=== PATIENT | male | born 1965 | race Caucasian/White ===

== ENCOUNTER 2016-06-13 00:16 | Emergency (ER) | payer MEDICARE, OTHER ==
[2016-06-13 00:24] VITALS: BP 183/88
[2016-06-13] MEDS ORDERED: HYDROcodone/APAP 5-325MG 1 EACH TAB PO STA (00:42)
[2016-06-13] MEDS ORDERED: CLINDAMYCIN 150 MG CAP PO STA (00:42)
--- NOTE | 2016-06-13 00:45 | ED ---
General Adult HPI - General Chief complaint: Skin/Abscess/Foreign Body Stated complaint: Facial Swelling Time Seen by Provider: 06/13/16 00:33 Source: patient, family, RN notes reviewed Mode of arrival: ambulatory Limitations: no limitations - History of Present Illness Initial comments: Patient 50-year-old male who presents emergency room today with son. 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 Patient admits to swelling to the right side of the face. Patient admits to local pain and tenderness. Denies any drainage or discharge. Denies any specific dental pain. Denies any other complaints at this time. Patient denies any recent fever, chills, shortness of breath, chest pain, back pain, abdominal pain, nausea or vomiting, numbness or tingling, dysuria or hematuria, constipation or diarrhea, headaches or visual changes, or any other complaints. - Related Data Previous Rx's Medication Instructions Recorded Methocarbamol [Robaxin] 1,000 mg PO TID PRN #15 tab 01/19/16 Naproxen [Naprosyn] 500 mg PO Q12HR #30 tab 01/19/16 Clindamycin HCl [Cleocin] 300 mg PO QID 10 Days 06/13/16 Hydrocodone/Acetaminophen [Cunningham 1 each PO Q6HR PRN #10 tab 06/13/16 5-325] Allergies Allergy/AdvReac Type Severity Reaction Status Date / Time Penicillins Allergy Unknown Unknown Verified 06/13/16 00:24 Sulfa (Sulfonamide Allergy Unknown Unknown Verified 06/13/16 00:24 Antibiotics) peas Allergy Unknown Verified 06/13/16 00:24 Review of Systems ROS Statement: Those systems with pertinent positive or pertinent negative responses have been documented in the HPI. ROS Other: All systems not noted in ROS Statement are negative. Past Medical History Past Medical History: Asthma, CVA/TIA History of Any Multi-Drug Resistant Organisms: None Reported Additional Past Surgical History / Comment(s): Abd Past Psychological History: No Psychological Hx Reported Smoking Status: Current every day smoker Past Alcohol Use History: Occasional Past Drug Use History: None Reported General Exam - General Exam Comments Initial Comments: General: The patient is awake and alert, in no distress, and does not appear acutely ill. Eye: Pupils are equal, round and reactive to light, extra-ocular movements are intact. No nystagmus. There is normal conjunctiva bilaterally. No signs of icterus. Ears, nose, mouth and throat: There are moist mucous membranes and no oral lesions. Poor dental hygiene. Tender gum line over tooth #8 Neck: The neck is supple, there is no tenderness or JVD. Cardiovascular: There is a regular rate and rhythm. No murmur, rub or gallop is appreciated. Musculoskeletal: Normal ROM, no tenderness. Strength 5/5. Sensation intact. Pulses equal bilaterally 2+. Neurological: A&O x 3. CN II-XII intact, There are no obvious motor or sensory deficits. Coordination appears grossly intact. Speech is normal. Skin: On or swelling to the right cheek area. Mild tenderness and warmth. Psychiatric: Cooperative, appropriate mood & affect, normal judgment. Limitations: no limitations Course Vital Signs 06/13/16 00:18 Temperature 98 F Pulse Rate 88 Respiratory 20 Rate Blood Pressure 183/88 O2 Sat by Pulse 98 Oximetry Medical Decision Making - Medical Decision Making Patient does have penicillin and sulfa ALLERGIES will be started on clindamycin cover for infection control prescription of pain medication advised follow-up dentist over the next 2 days. Advised return here to emergency room if any symptoms increase worsen or for any other concerns. Disposition Clinical Impression: Dental abscess Disposition: HOME SELF-CARE Condition: Good Instructions: Abscess (ED) Additional Instructions: Please use medication as discussed. Please follow-up with family doctor / dentist over the next 2 days. Please return to emergency room if the symptoms increase or worsen or for any other concerns. Prescriptions: Clindamycin HCl [Cleocin] 300 mg PO QID 10 Days Hydrocodone/Acetaminophen [Cunningham 5-325] 1 each PO Q6HR PRN #10 tab PRN Reason: Pain Referrals: None,Stated [Primary Care Provider] - 1-2 days Shola Wilcox MD [STAFF PHYSICIAN] - 1-2 days Time of Disposition: 00:44
[2016-06-13 00:53] VITALS: PULSE 90; RESP 18; TEMP 98.5
== END 2016-06-13 00:54 | disposition home or self-care (01) ==
LOC: EC 00:16
DX: K04.7 Periapical abscess without sinus (principal); F17.200 Nicotine dependence, unspecified, uncomplicated; Z88.0 Allergy status to penicillin; Z88.2 Allergy status to sulfonamides; Z91.018 Allergy to other foods
CPT/HCPCS: 99283

== ENCOUNTER 2017-03-03 22:44 | Emergency (ER) | payer MEDICARE, OTHER ==
[2017-03-03 22:52] VITALS: RESP 20
[2017-03-04] MEDS ORDERED: ONDANSETRON 4 MG/2 ML VIAL IVP STA (00:08)
[2017-03-04] MEDS ORDERED: SODIUM CHLORIDE 0.9% 1,000 ML IV STA (00:08)
--- NOTE | 2017-03-04 00:45 | XR ---
EXAMINATION TYPE: XR KUB DATE OF EXAM: 03/04/2017 COMPARISON: NONE HISTORY: Abdominal pain TECHNIQUE: 2 views FINDINGS: There is no sign of intestinal obstruction or pneumoperitoneum. Fecal pattern is normal. Th ere are no pathologic calcifications over the kidneys. Lung bases are clear. IMPRESSION: Nonacute abdomen.
[2017-03-04 00:51] LABS: Basophils # (A) 0.1 k/uL (0-0.2); Basophils % (A) 1 %; Eosinophils # (A) 0.3 k/uL (0-0.7); Eosinophils % (A) 3 %; HCT 43.8 % (39.0-53.0); HGB 14.5 gm/dL (13.0-17.5); Lymphocytes # (A) 2.6 k/uL (1.0-4.8); Lymphocytes % (A) 33 %; MCH 32.6 pg (25.0-35.0); MCV 98.8 fL (80.0-100.0); Mean Platelet Volume 7.6; Monocytes # (A) 0.5 k/uL (0-1.0); Monocytes % (A) 6 %; Neutrophils # (A) 4.4 k/uL (1.3-7.7); Neutrophils % (A) 55 %; Platelet Count 247 k/uL (150-450); RBC 4.43 m/uL (4.30-5.90); RDW 13.6 % (11.5-15.5)
[2017-03-04 01:02] LABS: Partial Thromboplastin Time 24.7 sec (22.0-30.0); Prothrombin Time 9.6 sec (9.0-12.0)
[2017-03-04 01:11] LABS: ALT 40 U/L (21-72); AST 32 U/L (17-59); Albumin 3.9 g/dL (3.5-5.0); Alcohol 26 mg/dL; Alkaline Phosphatase 95 U/L (38-126); Amylase 74 U/L (30-110); Anion Gap 9 mmol/L; Blood Urea Nitrogen 6 mg/dL (9-20); Calcium 8.7 mg/dL (8.4-10.2); Carbon Dioxide 22 mmol/L (22-30); Chloride 113 mmol/L (98-107); Glucose 84 mg/dL (74-99); Lipase 91 U/L (23-300); Potassium 4.2 mmol/L (3.5-5.1); Sodium 144 mmol/L (137-145); Total Bilirubin 0.3 mg/dL (0.2-1.3); Total Protein 6.8 g/dL (6.3-8.2)
[2017-03-04 01:20] LABS: Appearance,Urine Clear (Clear); Bilirubin,Urine Negative (Negative); Blood,Urine Negative (Negative); Color,Urine Yellow; Glucose,Urine (UA) Negative (Negative); Ketones,Urine Negative (Negative); Leukocyte Esterase,Urine Trace (Negative); Mucus,Urine Moderate /hpf; Nitrite,Urine Negative (Negative); PH, Urine 5.5 (5.0-8.0); Protein,Urine Trace (Negative); RBC,Urine 2 /hpf (0-5); Specific Gravity,Urine 1.032 (1.001-1.035); WBC,Urine 2 /hpf (0-5)
[2017-03-04] MEDS ORDERED: PANTOPRAZOLE 40 MG/10 ML VIAL IVP STA (01:44)
[2017-03-04] MEDS ORDERED: PSEUDOEPHEDRINE 30 MG TAB PO STA (01:44)
[2017-03-04] MEDS ORDERED: ONDANSETRON 4 MG ODT STARTER PACK 2 TAB BTL PO STA (01:48)
--- NOTE | 2017-03-04 01:48 | ED ---
Abdominal Pain HPI - General Chief Complaint: Abdominal Pain Stated Complaint: vomiting Time Seen by Provider: 03/03/17 23:53 Source: patient, mooner Mode of arrival: ambulatory Limitations: language barrier - History of Present Illness Initial Comments: 51-year-old male patient presents to the emergency department today for complaints of vomiting, generalized abdominal pain, body aches, nasal congestion. Patient states that symptoms of a present for the last couple of days. He denies any constipation or diarrhea. He reports that he did have some light pink streaking in his vomit that he believed to be blood. He does have a history of chronic alcohol abuse, hearing impairment, and gastric ulcer. States he is not currently doing any treatment for the ulcer. He denies any hematochezia or melena. Denies any known fever or chills. Denies any recent cough. Patient denies any recent rash, shortness breath, chest pain, back pain, numbness, tingling, dizziness, weakness, hematuria, dysuria, urinary urgency, urinary frequency, headache, visual changes, or any other complaints. - Related Data Previous Rx's Medication Instructions Recorded Omeprazole [PriLOSEC] 20 mg PO AC-BRKFST #30 cap 03/04/17 Allergies Allergy/AdvReac Type Severity Reaction Status Date / Time Penicillins Allergy Unknown Unknown Verified 03/03/17 22:52 Sulfa (Sulfonamide Allergy Unknown Unknown Verified 03/03/17 22:52 Antibiotics) peas Allergy Unknown Verified 03/03/17 22:52 Review of Systems ROS Statement: Those systems with pertinent positive or pertinent negative responses have been documented in the HPI. ROS Other: All systems not noted in ROS Statement are negative. Past Medical History Past Medical History: Asthma, CVA/TIA History of Any Multi-Drug Resistant Organisms: None Reported Past Surgical History: Appendectomy Additional Past Surgical History / Comment(s): Abd Past Psychological History: No Psychological Hx Reported Smoking Status: Current every day smoker Past Alcohol Use History: Occasional Past Drug Use History: None Reported General Exam Limitations: language barrier (Hearing impairment) General appearance: alert, in no apparent distress, other (This is a well- developed, well-nourished adult male patient in no acute distress. Vital signs upon presentation are temperature 99.0F, pulse 95, respirations 20, blood pressure 149/85, pulse ox 96% on room air.) Eye exam: Present: normal appearance, PERRL, EOMI. Absent: scleral icterus, conjunctival injection, periorbital swelling ENT exam: Present: normal exam, normal oropharynx, mucous membranes moist, TM's normal bilaterally Neck exam: Present: normal inspection. Absent: tenderness, meningismus, lymphadenopathy Respiratory exam: Present: normal lung sounds bilaterally. Absent: respiratory distress, wheezes, rales, rhonchi, stridor Cardiovascular Exam: Present: regular rate, normal rhythm, normal heart sounds. Absent: systolic murmur, diastolic murmur, rubs, gallop, clicks GI/Abdominal exam: Present: soft, normal bowel sounds. Absent: distended, tenderness, guarding, rebound, rigid Neurological exam: Present: alert, oriented X3, CN II-XII intact Psychiatric exam: Present: normal affect, normal mood Skin exam: Present: warm, dry, intact, normal color. Absent: rash Course Vital Signs 03/03/17 03/04/17 22:49 02:19 Temperature 99 F 97.8 F Pulse Rate 95 77 Respiratory 20 20 Rate Blood Pressure 149/85 138/94 O2 Sat by Pulse 96 97 Oximetry Medical Decision Making - Medical Decision Making 51-year-old male patient presented to the emergency department today for evaluation of generalized abdominal pain, vomiting, and body aches. Physical examination is relatively unremarkable. Abdomen was soft and not particularly tender. Labs reviewed and were unremarkable. Patient does have history of gastric ulcer however he is not being treated for this at this time. He does admit to chronic alcohol abuse. We will give him Prilosec to take at home. He' ll be given a starter pack for Zofran. He is instructed to follow-up with his primary care physician or GI specialist for further evaluation and possible scope. He is instructed to return here immediately for any new, worsening, or concerning symptoms. He verbalizes understanding and agrees with this plan. - Lab Data Result diagrams: 03/04/17 00:25 03/04/17 00:25 Lab Results 03/04/17 03/04/17 03/04/17 Range/Units 00:25 00:25 00:25 WBC 8.0 (3.8-10.6) k/uL RBC 4.43 (4.30-5.90) m/uL Hgb 14.5 (13.0-17.5) gm/dL Hct 43.8 (39.0-53.0) % MCV 98.8 (80.0-100.0) fL MCH 32.6 (25.0-35.0) pg MCHC 33.0 (31.0-37.0) g/dL RDW 13.6 (11.5-15.5) % Plt Count 247 (150-450) k/uL Neutrophils % 55 % Lymphocytes % 33 % Monocytes % 6 % Eosinophils % 3 % Basophils % 1 % Neutrophils # 4.4 (1.3-7.7) k/uL Lymphocytes # 2.6 (1.0-4.8) k/uL Monocytes # 0.5 (0-1.0) k/uL Eosinophils # 0.3 (0-0.7) k/uL Basophils # 0.1 (0-0.2) k/uL PT 9.6 (9.0-12.0) sec INR 1.0 (<1.2) APTT 24.7 (22.0-30.0) sec Sodium 144 (137-145) mmol/L Potassium 4.2 (3.5-5.1) mmol/L Chloride 113 H (98-107) mmol/L Carbon Dioxide 22 (22-30) mmol/L Anion Gap 9 mmol/L BUN 6 L (9-20) mg/dL Creatinine 1.00 (0.66-1.25) mg/dL Est GFR (MDRD) Af Amer >60 (>60 ml/min/1.73 sqM) Est GFR (MDRD) Non-Af >60 (>60 ml/min/1.73 sqM) Glucose 84 (74-99) mg/dL Calcium 8.7 (8.4-10.2) mg/dL Total Bilirubin 0.3 (0.2-1.3) mg/dL AST 32 (17-59) U/L ALT 40 (21-72) U/L Alkaline Phosphatase 95 (38-126) U/L Total Protein 6.8 (6.3-8.2) g/dL Albumin 3.9 (3.5-5.0) g/dL Amylase 74 (30-110) U/L Lipase 91 (23-300) U/L Urine Color Urine Appearance (Clear) Urine pH (5.0-8.0) Ur Specific [place] (1.001-1.035) Urine Protein (Negative) Urine Glucose (UA) (Negative) Urine Ketones (Negative) Urine Blood (Negative) Urine Nitrite (Negative) Urine Bilirubin (Negative) Urine Urobilinogen (<2.0) mg/dL Ur Leukocyte Esterase (Negative) Urine RBC (0-5) /hpf Urine WBC (0-5) /hpf Urine Mucus (None) /hpf Serum Alcohol 26 mg/dL Influenza Type A RNA (Not Detectd) Influenza Type B (PCR) (Not Detectd) 03/04/17 03/04/17 Range/Units 00:25 01:05 WBC (3.8-10.6) k/uL RBC (4.30-5.90) m/uL Hgb (13.0-17.5) gm/dL Hct (39.0-53.0) % MCV (80.0-100.0) fL MCH (25.0-35.0) pg MCHC (31.0-37.0) g/dL RDW (11.5-15.5) % Plt Count (150-450) k/uL Neutrophils % % Lymphocytes % % Monocytes % % Eosinophils % % Basophils % % Neutrophils # (1.3-7.7) k/uL Lymphocytes # (1.0-4.8) k/uL Monocytes # (0-1.0) k/uL Eosinophils # (0-0.7) k/uL Basophils # (0-0.2) k/uL PT (9.0-12.0) sec INR (<1.2) APTT (22.0-30.0) sec Sodium (137-145) mmol/L Potassium (3.5-5.1) mmol/L Chloride (98-107) mmol/L Carbon Dioxide (22-30) mmol/L Anion Gap mmol/L BUN (9-20) mg/dL Creatinine (0.66-1.25) mg/dL Est GFR (MDRD) Af Amer (>60 ml/min/1.73 sqM) Est GFR (MDRD) Non-Af (>60 ml/min/1.73 sqM) Glucose (74-99) mg/dL Calcium (8.4-10.2) mg/dL Total Bilirubin (0.2-1.3) mg/dL AST (17-59) U/L ALT (21-72) U/L Alkaline Phosphatase (38-126) U/L Total Protein (6.3-8.2) g/dL Albumin (3.5-5.0) g/dL Amylase (30-110) U/L Lipase (23-300) U/L Urine Color Yellow Urine Appearance Clear (Clear) Urine pH 5.5 (5.0-8.0) Ur Specific [place] 1.032 (1.001-1.035) Urine Protein Trace H (Negative) Urine Glucose (UA) Negative (Negative) Urine Ketones Negative (Negative) Urine Blood Negative (Negative) Urine Nitrite Negative (Negative) Urine Bilirubin Negative (Negative) Urine Urobilinogen 2.0 (<2.0) mg/dL Ur Leukocyte Esterase Trace H (Negative) Urine RBC 2 (0-5) /hpf Urine WBC 2 (0-5) /hpf Urine Mucus Moderate H (None) /hpf Serum Alcohol mg/dL Influenza Type A RNA Not Detected (Not Detectd) Influenza Type B (PCR) Not Detected (Not Detectd) - Radiology Data Radiology results: report reviewed, image reviewed 2 views of the abdomen are obtained and showed no sign of intestinal obstruction or pneumoperitoneum. Fecal pattern is normal. There are no pathologic calcifications over the kidneys. Lung bases are clear. Impression by Dr. Simms shows nonacute abdomen. Disposition Clinical Impression: Abdominal pain, Vomiting, Upper respiratory infection Disposition: HOME SELF-CARE Condition: Good Instructions: Upper Respiratory Infection (ED), Abdominal Pain (ED) Additional Instructions: Follow-up with GI specialist for possible scope to reevaluate your ulcer. Take omeprazole daily. Take Zofran/Ondansetron as needed for vomiting. Follow-up with her primary care physician tomorrow. Return here immediately for any new, worsening, or concerning symptoms. Prescriptions: Omeprazole [PriLOSEC] 20 mg PO -KT #30 cap Referrals: None,Stated [Primary Care Provider] - 1-2 days Time of Disposition: 01:47
[2017-03-04 02:21] VITALS: BP 138/94; PULSE 77; TEMP 97.8
== END 2017-03-04 02:35 | disposition home or self-care (01) ==
LOC: EC 22:44
DX: R10.84 Generalized abdominal pain (principal); R11.10 Vomiting, unspecified; J06.9 Acute upper respiratory infection, unspecified; F10.10 Alcohol abuse, uncomplicated; H91.90 Unspecified hearing loss, unspecified ear; F17.200 Nicotine dependence, unspecified, uncomplicated; Z88.0 Allergy status to penicillin; Z88.2 Allergy status to sulfonamides; Z91.018 Allergy to other foods; Z90.49 Acquired absence of other specified parts of digestive tract
CPT/HCPCS: 99284; 96374; 96375; 96361; 36415; 93005; 80053; 82150; 83690; 85025; 85610; 85730; 81001; 80320; 87502; 74018; J2405; S0119; C9113

== ENCOUNTER 2018-08-22 18:56 | Emergency (ER) | payer MEDICARE ==
[2018-08-22 19:09] VITALS: TEMP 97.6
[2018-08-22] MEDS ORDERED: SODIUM CHLORIDE 0.9% 1,000 ML IV STA (19:17)
[2018-08-22] MEDS ORDERED: ALBUTEROL NEBULIZED 2.5 MG/3 ML INHALATION STA (19:18)
--- NOTE | 2018-08-22 19:20 | ED ---
General Adult HPI - General Chief complaint: Shortness of Breath Stated complaint: Allergic Reaction Time Seen by Provider: 08/22/18 18:59 Source: patient, family, EMS, RN notes reviewed, old records reviewed Mode of arrival: EMS Limitations: language barrier - History of Present Illness Initial comments: Patient is a 53-year-old male who presents emergency department today with a known ALLERGY to bees. Patient reports that he was started in the left forearm by a bee while he was at his daughter's home. He was outside, and had immediate reaction complaint of throat closing tongue swelling. Patient was found on the ground by family members and out of consciousness. They report that he was breathing the entire time but was waxing and waning with conscious level. Patient states that he does not carry an EpiPen with him. No ventral. Upon EMS arrival they administered epi, Benadryl and Solu-Medrol gave the Patient albuterol treatment. He reports he is feeling somewhat better at this time. He still complains of some feeling of throat swelling. Patient states that he has no other significant pains assigns the swelling in his arm. He denies any chest pain. - Related Data Previous Rx's Medication Instructions Recorded Omeprazole [PriLOSEC] 20 mg PO AC-BRKFST #30 cap 03/04/17 EPINEPHrine (Auto Inject) [Epipen] 0.3 mg IM ONCE PRN #1 pen 08/22/18 diphenhydrAMINE HCL [Benadryl] 25 mg PO HS #20 tab 08/22/18 predniSONE 10 mg PO DAILY #15 tab 08/22/18 Allergies Allergy/AdvReac Type Severity Reaction Status Date / Time Penicillins Allergy Unknown Unknown Verified 03/03/17 22:52 Sulfa (Sulfonamide Allergy Unknown Unknown Verified 03/03/17 22:52 Antibiotics) venom-honey bee Allergy Anaphylaxis Verified 08/22/18 19:02 Review of Systems ROS Statement: Those systems with pertinent positive or pertinent negative responses have been documented in the HPI. ROS Other: All systems not noted in ROS Statement are negative. Past Medical History Past Medical History: Asthma, CVA/TIA History of Any Multi-Drug Resistant Organisms: None Reported Past Surgical History: Appendectomy Additional Past Surgical History / Comment(s): Abd Past Psychological History: No Psychological Hx Reported Smoking Status: Current every day smoker Past Alcohol Use History: Occasional Past Drug Use History: None Reported General Exam - General Exam Comments Initial Comments: 53-year-old male. Alert and oriented. No significant distress. Limitations: language barrier General appearance: alert, in no apparent distress Head exam: Present: atraumatic, normocephalic, normal inspection Eye exam: Present: normal appearance, PERRL, EOMI. Absent: scleral icterus, conjunctival injection, periorbital swelling ENT exam: Present: normal exam, mucous membranes moist Neck exam: Present: normal inspection. Absent: tenderness, meningismus, lymphadenopathy Respiratory exam: Present: wheezes. Absent: normal lung sounds bilaterally, r espiratory distress, rales, rhonchi, stridor Cardiovascular Exam: Present: regular rate, normal rhythm, normal heart sounds. Absent: systolic murmur, diastolic murmur, rubs, gallop, clicks GI/Abdominal exam: Present: soft, normal bowel sounds. Absent: distended, tenderness, guarding, rebound, rigid Extremities exam: Present: normal inspection, full ROM, normal capillary refill. Absent: tenderness, pedal edema, joint swelling, calf tenderness Back exam: Present: normal inspection Neurological exam: Present: alert, oriented X3, CN II-XII intact Psychiatric exam: Present: normal affect, normal mood Course Vital Signs 08/22/18 08/22/18 08/22/18 19:02 19:56 20:00 Temperature 97.6 F Pulse Rate 94 82 84 Respiratory 18 21 15 Rate Blood Pressure 143/86 127/73 127/73 O2 Sat by Pulse 99 95 Oximetry 08/22/18 08/22/18 08/22/18 20:30 20:33 20:39 Temperature Pulse Rate 73 71 Respiratory 17 22 Rate Blood Pressure 128/81 O2 Sat by Pulse 97 Oximetry 08/22/18 08/22/18 08/22/18 20:44 21:00 21:30 Temperature Pulse Rate 72 79 77 Respiratory 22 24 Rate Blood Pressure 130/69 123/70 O2 Sat by Pulse 91 L 93 L Oximetry 08/22/18 08/22/18 22:00 22:30 Temperature Pulse Rate 77 75 Respiratory 23 13 Rate Blood Pressure 126/68 132/80 O2 Sat by Pulse 94 L 97 Oximetry Medical Decision Making - Medical Decision Making PAtient is a 53 year old male with allergic reaction to bee sting. PAtient was administered solumedrol, benadryl, and epinephrine via eMS. Patient at this time is stable. Labs are normal. Patient had intermittent LOC after anaphylatic shock reaction. At this time patient is well adn was monitored for 4 hours. Discussed DC with epinephrine pen Rx. - Lab Data Result diagrams: 08/22/18 19:43 08/22/18 19:43 Lab Results 08/22/18 08/22/18 08/22/18 Range/Units 19:43 19:43 19:43 WBC 12.2 H (3.8-10.6) k/uL RBC 4.27 L (4.30-5.90) m/uL Hgb 13.9 (13.0-17.5) gm/dL Hct 43.2 (39.0-53.0) % MCV 101.2 H (80.0-100.0) fL MCH 32.5 (25.0-35.0) pg MCHC 32.1 (31.0-37.0) g/dL RDW 14.7 (11.5-15.5) % Plt Count 320 (150-450) k/uL Neutrophils % 75 % Lymphocytes % 20 % Monocytes % 3 % Eosinophils % 1 % Basophils % 1 % Neutrophils # 9.1 H (1.3-7.7) k/uL Lymphocytes # 2.5 (1.0-4.8) k/uL Monocytes # 0.3 (0-1.0) k/uL Eosinophils # 0.1 (0-0.7) k/uL Basophils # 0.1 (0-0.2) k/uL Macrocytosis Slight PT 9.6 (9.0-12.0) sec INR 0.9 (<1.2) APTT 21.0 L (22.0-30.0) sec Sodium 141 (137-145) mmol/L Potassium 3.7 (3.5-5.1) mmol/L Chloride 109 H (98-107) mmol/L Carbon Dioxide 20 L (22-30) mmol/L Anion Gap 12 mmol/L BUN 9 (9-20) mg/dL Creatinine 1.29 H (0.66-1.25) mg/dL Est GFR (CKD-EPI)AfAm 73 (>60 ml/min/1.73 sqM) Est GFR (CKD-EPI)NonAf 63 (>60 ml/min/1.73 sqM) Glucose 193 H (74-99) mg/dL Calcium 8.9 (8.4-10.2) mg/dL Total Bilirubin 0.4 (0.2-1.3) mg/dL AST 22 (17-59) U/L ALT 30 (21-72) U/L Alkaline Phosphatase 112 (38-126) U/L Troponin I (0.000-0.034) ng/mL Total Protein 6.5 (6.3-8.2) g/dL Albumin 4.0 (3.5-5.0) g/dL 08/22/18 Range/Units 19:43 WBC (3.8-10.6) k/uL RBC (4.30-5.90) m/uL Hgb (13.0-17.5) gm/dL Hct (39.0-53.0) % MCV (80.0-100.0) fL MCH (25.0-35.0) pg MCHC (31.0-37.0) g/dL RDW (11.5-15.5) % Plt Count (150-450) k/uL Neutrophils % % Lymphocytes % % Monocytes % % Eosinophils % % Basophils % % Neutrophils # (1.3-7.7) k/uL Lymphocytes # (1.0-4.8) k/uL Monocytes # (0-1.0) k/uL Eosinophils # (0-0.7) k/uL Basophils # (0-0.2) k/uL Macrocytosis PT (9.0-12.0) sec INR (<1.2) APTT (22.0-30.0) sec Sodium (137-145) mmol/L Potassium (3.5-5.1) mmol/L Chloride (98-107) mmol/L Carbon Dioxide (22-30) mmol/L Anion Gap mmol/L BUN (9-20) mg/dL Creatinine (0.66-1.25) mg/dL Est GFR (CKD-EPI)AfAm (>60 ml/min/1.73 sqM) Est GFR (CKD-EPI)NonAf (>60 ml/min/1.73 sqM) Glucose (74-99) mg/dL Calcium (8.4-10.2) mg/dL Total Bilirubin (0.2-1.3) mg/dL AST (17-59) U/L ALT (21-72) U/L Alkaline Phosphatase (38-126) U/L Troponin I <0.012 (0.000-0.034) ng/mL Total Protein (6.3-8.2) g/dL Albumin (3.5-5.0) g/dL 08/22/18 20:19 EKG shows normal sinus rhythm. A Underage 5. Minimal voltage scheduled for LVH. Portal and EKG. She received 74 bpm.. Vitals 142 ms. Zoroastrian 96 ms. QT QTc is 402/446 ms. Disposition Clinical Impression: Allergic reaction Disposition: HOME SELF-CARE Condition: Good Instructions (If sedation given, give patient instructions): Anaphylaxis (ED), General Allergic Reaction (ED) Additional Instructions: and advised to get the prescriptions of pharmacy. Have close follow up with primary care physician. Take the steroids as prescribed. Return to emergency department if any alarming signs or symptoms occur. Prescriptions: diphenhydrAMINE HCL [Benadryl] 25 mg PO HS #20 tab EPINEPHrine (Auto Inject) [Epipen] 0.3 mg IM ONCE PRN #1 pen PRN Reason: Anaphylaxis predniSONE 10 mg PO DAILY #15 tab Is patient prescribed a controlled substance at d/c from ED?: No Referrals: None,Stated [Primary Care Provider] - 1-2 days Time of Disposition: 22:42
[2018-08-22 20:04] LABS: Basophils # (A) 0.1 k/uL (0-0.2); Basophils % (A) 1 %; Eosinophils # (A) 0.1 k/uL (0-0.7); Eosinophils % (A) 1 %; HCT 43.2 % (39.0-53.0); HGB 13.9 gm/dL (13.0-17.5); Lymphocytes # (A) 2.5 k/uL (1.0-4.8); Lymphocytes % (A) 20 %; MCH 32.5 pg (25.0-35.0); MCHC 32.1 g/dL (31.0-37.0); MCV 101.2 fL (80.0-100.0); Macrocytosis Slight; Mean Platelet Volume 7.7; Monocytes # (A) 0.3 k/uL (0-1.0); Monocytes % (A) 3 %; Neutrophils # (A) 9.1 k/uL (1.3-7.7); Neutrophils % (A) 75 %; Platelet Count 320 k/uL (150-450); RBC 4.27 m/uL (4.30-5.90); RDW 14.7 % (11.5-15.5); WBC 12.2 k/uL (3.8-10.6)
[2018-08-22 20:19] LABS: INR 0.9 (<1.2); Prothrombin Time 9.6 sec (9.0-12.0)
[2018-08-22 20:20] LABS: Calcium 8.9 mg/dL (8.4-10.2); Potassium 3.7 mmol/L (3.5-5.1); Total Bilirubin 0.4 mg/dL (0.2-1.3); Total Protein 6.5 g/dL (6.3-8.2)
--- NOTE | 2018-08-22 20:40 | XR ---
EXAMINATION TYPE: XR chest 2V DATE OF EXAM: 08/22/2018 COMPARISON: 01/19/2016 chest x-ray INDICATION: Syncope allergic reaction TECHNIQUE: Frontal and lateral views of the chest are obtained. FINDINGS: The heart size is normal. The pulmonary vasculature is normal. The lungs are clear. IMPRESSION: 1. No acute pulmonary process.
[2018-08-22] MEDS ORDERED: FAMOTIDINE 20 MG/2 ML VIAL IV STA (22:05)
[2018-08-22 22:51] VITALS: BP 132/80; PULSE 75; RESP 13
== END 2018-08-22 22:55 | disposition home or self-care (01) ==
LOC: EC 18:56
DX: T78.40XA Allergy, unspecified, initial encounter (principal); F17.200 Nicotine dependence, unspecified, uncomplicated; Z88.0 Allergy status to penicillin; Z88.2 Allergy status to sulfonamides; Z91.030 Bee allergy status
CPT/HCPCS: 36415; 71046; 80053; 84484; 85025; 85610; 85730; 93005; 94640; 96361; 96374; 99285

== ENCOUNTER 2018-09-28 18:09 | Emergency (ER) | payer MEDICARE, OTHER ==
[2018-09-28 18:42] VITALS: BP 141/83; PULSE 86; RESP 18; TEMP 97.4
--- NOTE | 2018-09-28 19:40 | ED ---
Lower Extremity Injury HPI - General Chief Complaint: Extremity Injury, Lower Stated Complaint: fall/foot pain Time Seen by Provider: 09/28/18 18:56 Source: patient Mode of arrival: wheelchair Limitations: no limitations - History of Present Illness Initial Comments: Patient is a 53-year-old male presenting to the emergency Department with complaints of left ankle pain after falling 2 days ago. (Patient is deaf.) Patient states he was going downstairs when his left leg gave out and he fell forward. Patient has pain in the back of his left ankle and Achilles area. Patient denies any prior trauma to the left ankle or foot. Patient denies being on blood thinners. Patient is denying pain anywhere else. Patient did not hit his head. Patient has no other complaints at this time. - Related Data Previous Rx's Medication Instructions Recorded Omeprazole [PriLOSEC] 20 mg PO AC-BRKFST #30 cap 03/04/17 EPINEPHrine (Auto Inject) [Epipen] 0.3 mg IM ONCE PRN #1 pen 08/22/18 diphenhydrAMINE HCL [Benadryl] 25 mg PO HS #20 tab 08/22/18 predniSONE 10 mg PO DAILY #15 tab 08/22/18 Hydrocodone/Acetaminophen [[place] 1 tab PO Q6HR PRN #10 tab 09/28/18 5-325] Ondansetron Odt [Zofran Odt] 4 mg PO Q8HR PRN #10 tab 09/28/18 Allergies Allergy/AdvReac Type Severity Reaction Status Date / Time Penicillins Allergy Unknown Unknown Verified 03/03/17 22:52 Sulfa (Sulfonamide Allergy Unknown Unknown Verified 03/03/17 22:52 Antibiotics) venom-honey bee Allergy Anaphylaxis Verified 08/22/18 19:02 codeine AdvReac Vomiting Verified 09/28/18 20:42 Review of Systems ROS Statement: Those systems with pertinent positive or pertinent negative responses have been documented in the HPI. ROS Other: All systems not noted in ROS Statement are negative. Past Medical History Past Medical History: Asthma, CVA/TIA History of Any Multi-Drug Resistant Organisms: None Reported Past Surgical History: Appendectomy Additional Past Surgical History / Comment(s): Abd Past Psychological History: No Psychological Hx Reported Smoking Status: Current every day smoker Past Alcohol Use History: Occasional Past Drug Use History: None Reported General Exam - General Exam Comments Initial Comments: GENERAL: Well-appearing, well-nourished and in no acute distress. HEAD: Atraumatic, normocephalic. EYES: Pupils equal round and reactive to light, extraocular movements intact, sclera anicteric, conjunctiva are normal. ENT: TMs normal, nares patent, oropharynx clear without exudates. Moist mucous membranes. NECK: Normal range of motion, supple without lymphadenopathy or JVD. LUNGS: Breath sounds clear to auscultation bilaterally and equal. No wheezes rales or rhonchi. HEART: Regular rate and rhythm without murmurs, rubs or gallops. ABDOMEN: Soft, nontender, normoactive bowel sounds. No guarding, no rebound. No masses appreciated. : Deferred EXTREMITIES: Pain with palpation of the left Achilles, proximal calf area. There is some mild swelling to the area as well. Patient has extreme pain with passive and active ankle dorsiflexion. Mild pain with plantarflexion. Neurovascular intact. NEUROLOGICAL: Cranial nerves II through XII grossly intact. Normal speech, normal gait. PSYCH: Normal mood, normal affect. SKIN: Warm, Dry, normal turgor, no rashes or lesions noted. Limitations: no limitations Course Vital Signs 09/28/18 18:38 Temperature 97.4 F L Pulse Rate 86 Respiratory 18 Rate Blood Pressure 141/83 O2 Sat by Pulse 97 Oximetry Procedures - Orthopedic Splinting/Casting Injury #1 Side: left Lower Extremity Injury Location: short leg, ankle (Left Achilles) Lower Extremity Immobilizer: posterior splint Medical Decision Making - Medical Decision Making Patient is a 53-year-old male presenting with left Achilles pain 2 days after falling down some stairs. On exam patient has tenderness along the left Achilles, pain with active or passive dorsiflexion. X-ray reveals no acute fractures dislocations. Patient was placed in a short leg splint with slight plantarflexion and will follow up with orthopedics in the next 1-2 days. Patient is agreement with this plan of care. Return parameters were discussed with patient and family and he verbalized understanding. Case discussed with Dr. Anne. Disposition Clinical Impression: Pain in Achilles tendon Disposition: HOME SELF-CARE Condition: Stable Instructions (If sedation given, give patient instructions): Achilles Tendinitis (ED) Additional Instructions: Please return to the Emergency Department if symptoms worsen or any other concerns. Keep splint in place until orthopedic follow-up. Prescriptions: Hydrocodone/Acetaminophen [[place] 5-325] 1 tab PO Q6HR PRN #10 tab PRN Reason: Pain Ondansetron Odt [Zofran Odt] 4 mg PO Q8HR PRN #10 tab PRN Reason: Nausea Is patient prescribed a controlled substance at d/c from ED?: Yes When asked, does pt state using other controlled substances?: No If prescribed controlled substance>3 days was MAPS reviewed?: Prescribed <3 Days If opioid is for acute pain is fill amount 7 days or less?: Yes If Rx opioid, was Start Talking consent form obtained?: Yes Referrals: None,Stated [Primary Care Provider] - 1-2 days Mark Rogers DO [Doctor of Osteopathic Medicine] - 1-2 days
--- NOTE | 2018-09-28 19:53 | XR ---
EXAMINATION TYPE: XR foot complete LT DATE OF EXAM: 09/28/2018 COMPARISON: NONE HISTORY: Pain TECHNIQUE: 3 views FINDINGS: Metatarsals are intact. There is plantar calcaneal spurring. I see no fracture nor dislocat ion. There are no erosions. IMPRESSION: Calcaneal spurring. No fracture seen.
--- NOTE | 2018-09-28 19:53 | XR ---
EXAMINATION TYPE: XR ankle complete LT DATE OF EXAM: 09/28/2018 COMPARISON: NONE HISTORY: Pain TECHNIQUE: 3 views FINDINGS: There is plantar calcaneal spurring. Ankle mortise is anatomic. I see no fracture nor dislo cation. Joint spaces are normal. IMPRESSION: Calcaneal spurring. No fracture.
[2018-09-28] MEDS ORDERED: ACET/COD 300 MG/30 MG STARTER PACK 6 TAB BTL PO STA (20:23)
== END 2018-09-28 20:53 | disposition home or self-care (01) ==
LOC: EC 18:09
DX: M79.662 Pain in left lower leg (principal); S99.912A Unspecified injury of left ankle, initial encounter; H91.90 Unspecified hearing loss, unspecified ear; F17.200 Nicotine dependence, unspecified, uncomplicated; Z88.0 Allergy status to penicillin; Z88.2 Allergy status to sulfonamides; Z88.5 Allergy status to narcotic agent; Z91.030 Bee allergy status; W10.9XXA Fall (on) (from) unspecified stairs and steps, initial encounter; Y93.01 Activity, walking, marching and hiking; Y92.239 Unspecified place in hospital as the place of occurrence of the external cause
CPT/HCPCS: 29515; 99283

== ENCOUNTER 2021-10-30 13:13 | Emergency (ER) | payer MEDICARE, OTHER ==
[2021-10-30 13:25] VITALS: TEMP 98.1
--- NOTE | 2021-10-30 14:16 | CT ---
EXAMINATION TYPE: CT brain cspine wo con CT DLP: 1270.3 mGycm, Automated exposure control for dose reduction was used. DATE OF EXAM: 10/30/2021 2:04 PM COMPARISON: None.. CLINICAL INDICATION:Male, 56 years old with history of fall/syncope; fall TECHNIQUE: Brain: Multiple axial CT images of the brain were obtained without IV contrast. Cspine: Axial CT images from the skull base to the inferior aspect of T2 we obtained without intraven ous contrast. Coronal and sagittal reformatted images were also reviewed. FINDINGS: Brain: Extra-axial spaces: No abnormal extra-axial fluid collections. Ventricular system: Within normal limits Cerebral parenchyma: No acute intraparenchymal hemorrhage or mass effect. The diane-white junction is well differentiated. Cerebellum: Unremarkable. Mass effect: No evidence of midline shift. Intracranial vasculature: Atherosclerotic calcifications of the intracranial vessels. Soft tissues: Normal. Calvarium/osseous structures: No depressed skull fracture. Paranasal sinuses and mastoid air cells: Clear. Visualized orbits: Orbital contents are intact. Cervical spine: Fracture: None. Osseous structures: Multilevel degenerative disc disease changes with endplate spurring and disc oste ophyte complex's. Vertebral alignment: Within normal limits. Spinal canal/Neural Foramina: Disc osteophyte complexes at C5-C6 with at least mild spinal canal sten osis. No evidence for significant neural foraminal stenosis. Neck soft tissues: Prevertebral soft tissues are within normal limits. Other: The airway is patent. The lung apices are clear. IMPRESSION: 1. No acute intracranial process. 2. No evidence of cervical spine fracture. 3. Mild multilevel degenerative disc disease.
[2021-10-30] MEDS ORDERED: FAMOTIDINE 20 MG/2 ML VIAL IV STA (15:32)
[2021-10-30] MEDS ORDERED: ONDANSETRON 4 MG/2 ML VIAL IVP STA (15:32)
[2021-10-30] MEDS ORDERED: SODIUM CHLORIDE 0.9% 1,000 ML IV STA (15:32)
[2021-10-30] MEDS ORDERED: diphenhydrAMINE 50 MG/ML 1 ML VIAL IVP STA (15:32)
[2021-10-30 16:07] LABS: Basophils # (A) 0.1 k/uL (0-0.2); Basophils % (A) 1 %; Eosinophils # (A) 0.1 k/uL (0-0.7); Eosinophils % (A) 1 %; HCT 45.3 % (39.0-53.0); HGB 14.5 gm/dL (13.0-17.5); Lymphocytes # (A) 2.4 k/uL (1.0-4.8); Lymphocytes % (A) 21 %; MCH 33.3 pg (25.0-35.0); MCHC 31.9 g/dL (31.0-37.0); MCV 104.3 fL (80.0-100.0); Macrocytosis Slight; Mean Platelet Volume 8.3; Monocytes # (A) 0.4 k/uL (0-1.0); Monocytes % (A) 4 %; Neutrophils # (A) 8.2 k/uL (1.3-7.7); Neutrophils % (A) 72 %; Platelet Count 303 k/uL (150-450); RBC 4.34 m/uL (4.30-5.90); WBC 11.4 k/uL (3.8-10.6)
--- NOTE | 2021-10-30 16:09 | ED ---
General Adult HPI - General Chief complaint: Syncope Stated complaint: syncope, hit head Time Seen by Provider: 10/30/21 15:30 Source: patient, RN notes reviewed, old records reviewed Mode of arrival: wheelchair - History of Present Illness Initial comments: Patient is a 56 her old male with past medical history remarkable for deafness who presents emergency Department complaining of a syncopal episode. States he has had these previously. Has a history of a traumatic brain injury. Patient is complaining of having a syncopal episode this morning. States he drank coffee. [place] [facility] felt nauseous, had one episode of nonbilious emesis, and syncopized. Patient states he fell to the ground. Does not believe he was out long. Woke up and has been feeling okay since but is still complaining of a burning, achy epigastric abdominal discomfort that does not radiate. Presents for further evaluation this time. States he has syncopized previously. Has not followed up for him. Patient is somewhat a poor historian. Does not take medications at home. Is not on blood thinners. Denies any chest pain, shortness breath. Denies any diarrhea. Denies any subsequent episodes of nausea or vomiting. Denies any fevers, chills, cough. His no other acute complaints at this time. Presents for further evaluation at this time. His last and will episode occurred approximately 5 months ago. States it was similar, where he stood up and shortly after he he did have a syncopal episode. This time it was while he was in the shower but was within minutes of standing up after he drank his coffee. Describes it as his vision going black, feeling weak all over, then collapsing. - Related Data Previous Rx's Medication Instructions Recorded Mag Hydrox/Al Hydrox/Simeth 30 ml PO BID PRN #300 ml 10/30/21 [Maalox] Ondansetron Odt [Zofran Odt] 4 mg PO Q8HR PRN 3 Days #9 tab 10/30/21 Allergies Allergy/AdvReac Type Severity Reaction Status Date / Time Penicillins Allergy Unknown Unknown Verified 10/30/21 18:20 Childhood Sulfa (Sulfonamide Allergy Unknown Unknown Verified 10/30/21 18:20 Antibiotics) venom-honey bee Allergy Anaphylaxis Verified 10/30/21 18:20 codeine AdvReac Vomiting Verified 10/30/21 18:20 Review of Systems ROS Statement: Those systems with pertinent positive or pertinent negative responses have been documented in the HPI. Review of Systems: CONST: Denies fever EYES: Denies blurry vision ENT: Denies nasal congestion C/V: Denies Chest pain RESP: Denies shortness of breath GI: Endorses epigastric abdominal pain : Denies dysuria SKIN: Denies rash. MSK: Denies joint pain. NEURO: Denies headache ROS Other: All systems not noted in ROS Statement are negative. Past Medical History Past Medical History: Asthma, CVA/TIA History of Any Multi-Drug Resistant Organisms: None Reported Past Surgical History: Appendectomy Additional Past Surgical History / Comment(s): Abd Past Psychological History: No Psychological Hx Reported Past Alcohol Use History: Occasional Past Drug Use History: None Reported General Exam - General Exam Comments Initial Comments: General: Appears in no acute distress. HEAD: Normal with no signs of head trauma. EYES: PERRLA, EOMI, conjunctiva normal, no discharge. ENT: Chronically hard of hearing., normal oropharynx. RESPIRATORY: Clear breath sounds bilaterally. No wheezes, rales, or rhonchi. C/V: Regular rate and rhythm. S1 and S2 auscultated, no edema, peripheral pulses 2+ and intact throughout ABD: Abd is soft, nontender, nondistended EXT: Normal range of motion, no obvious deformity SKIN: No rashes or lesions observed on exposed skin. NEURO: Alert and oriented x 4. Cranial nerves II-XII intact. No focal sensory or strength deficits. GCS of 15. NIH is 0. Chronic difficulty hearing. Course Vital Signs 10/30/21 10/30/21 13:19 17:33 Temperature 98.1 F Pulse Rate 86 56 L Respiratory 16 20 Rate Blood Pressure 165/98 164/88 O2 Sat by Pulse 98 99 Oximetry Medical Decision Making - Medical Decision Making Based on patient's presentation and physical exam, patient presents following a syncopal episode. This occurred multiple hours prior to arrival. He is back to normal baseline. No neuro deficits. CT brain and C-spine was obtained on the patient was in triage. This is normal. No acute findings. No signs of intracranial injury. We will obtain basic laboratory studies, as well as cardio pulmonary limbs. He was in agreement this plan. His only complaint is abdomina l pain at this time and therefore we will obtain abdominal laboratory studies and likely obtain a right upper quadrant ultrasound as well. Patient was in agreement this plan. Vital signs are within normal limits. EKG shows no signs of acute ischemia. CT brain, C-spine show no acute process. No acute intracranial injury. Cervical spine shows no evidence of injury. Laboratory studies are remarkable for a mild leukocytosis of 11. Likely reactive. Troponin is undetectable. Remainder of the labs are unremarkable. Chest x-ray revealed no acute cardio pulmonary process. On reevaluation, I discussed with the patient that he appeared to have vasovagal type syncope. Workup is negative. I believe it is safer to be discharged home. Has been ambulating throughout the emergency department without issue. Abdomen pain has resolved. He was in agreement with this plan. Does not have a PCP and will be given contact info for a PCP to follow up with. Recommended that he has felt with loan servicing representative. He expressed understanding. Patient will be discharged home at this time. Strict return precautions were discussed. I will provide the patient with a prescription for Maalox, Zofran ODT. I instructed the patient to follow up with their PCP in the next 1-3 days. I explained that the patient should return to the emergency department if they experience any worsening symptoms. Strict return precautions were discussed with the patient. The patient expressed understanding of these instructions. I answered all questions that the patient had. The patient was discharged home in good condition with their prescriptions and follow up information. - Lab Data Result diagrams: 10/30/21 15:57 10/30/21 15:57 Lab Results 10/30/21 10/30/21 10/30/21 Range/Units 15:57 15:57 15:57 WBC 11.4 H (3.8-10.6) k/uL RBC 4.34 (4.30-5.90) m/uL Hgb 14.5 (13.0-17.5) gm/dL Hct 45.3 (39.0-53.0) % MCV 104.3 H (80.0-100.0) fL MCH 33.3 (25.0-35.0) pg MCHC 31.9 (31.0-37.0) g/dL RDW 14.0 (11.5-15.5) % Plt Count 303 (150-450) k/uL MPV 8.3 Neutrophils % 72 % Lymphocytes % 21 % Monocytes % 4 % Eosinophils % 1 % Basophils % 1 % Neutrophils # 8.2 H (1.3-7.7) k/uL Lymphocytes # 2.4 (1.0-4.8) k/uL Monocytes # 0.4 (0-1.0) k/uL Eosinophils # 0.1 (0-0.7) k/uL Basophils # 0.1 (0-0.2) k/uL Macrocytosis Slight PT 9.7 (9.0-12.0) sec INR 0.9 (<1.2) APTT 24.1 (22.0-30.0) sec Sodium (137-145) mmol/L Potassium (3.5-5.1) mmol/L Chloride (98-107) mmol/L Carbon Dioxide (22-30) mmol/L Anion Gap mmol/L BUN (9-20) mg/dL Creatinine (0.66-1.25) mg/dL Est GFR (CKD-EPI)AfAm (>60 ml/min/1.73 sqM) Est GFR (CKD-EPI)NonAf (>60 ml/min/1.73 sqM) Glucose (74-99) mg/dL Calcium (8.4-10.2) mg/dL Magnesium (1.6-2.3) mg/dL Total Bilirubin (0.2-1.3) mg/dL AST (17-59) U/L ALT (4-49) U/L Alkaline Phosphatase (38-126) U/L Troponin I (0.000-0.034) ng/mL Total Protein (6.3-8.2) g/dL Albumin (3.5-5.0) g/dL Amylase (30-110) U/L Lipase (23-300) U/L Urine Color Yellow Urine Appearance Clear (Clear) Urine pH 5.5 (5.0-8.0) Ur Specific [place] 1.019 (1.001-1.035) Urine Protein Negative (Negative) Urine Glucose (UA) Negative (Negative) Urine Ketones Negative (Negative) Urine Blood Negative (Negative) Urine Nitrite Negative (Negative) Urine Bilirubin Negative (Negative) Urine Urobilinogen <2.0 (<2.0) mg/dL Ur Leukocyte Esterase Negative (Negative) 10/30/21 10/30/21 Range/Units 15:57 15:57 WBC (3.8-10.6) k/uL RBC (4.30-5.90) m/uL Hgb (13.0-17.5) gm/dL Hct (39.0-53.0) % MCV (80.0-100.0) fL MCH (25.0-35.0) pg MCHC (31.0-37.0) g/dL RDW (11.5-15.5) % Plt Count (150-450) k/uL MPV Neutrophils % % Lymphocytes % % Monocytes % % Eosinophils % % Basophils % % Neutrophils # (1.3-7.7) k/uL Lymphocytes # (1.0-4.8) k/uL Monocytes # (0-1.0) k/uL Eosinophils # (0-0.7) k/uL Basophils # (0-0.2) k/uL Macrocytosis PT (9.0-12.0) sec INR (<1.2) APTT (22.0-30.0) sec Sodium 142 (137-145) mmol/L Potassium 4.2 (3.5-5.1) mmol/L Chloride 111 H (98-107) mmol/L Carbon Dioxide 19 L (22-30) mmol/L Anion Gap 12 mmol/L BUN 11 (9-20) mg/dL Creatinine 0.83 (0.66-1.25) mg/dL Est GFR (CKD-EPI)AfAm >90 (>60 ml/min/1.73 sqM) Est GFR (CKD-EPI)NonAf >90 (>60 ml/min/1.73 sqM) Glucose 99 (74-99) mg/dL Calcium 9.1 (8.4-10.2) mg/dL Magnesium 2.0 (1.6-2.3) mg/dL Total Bilirubin 0.5 (0.2-1.3) mg/dL AST 21 (17-59) U/L ALT 16 (4-49) U/L Alkaline Phosphatase 116 (38-126) U/L Troponin I <0.012 (0.000-0.034) ng/mL Total Protein 6.7 (6.3-8.2) g/dL Albumin 4.3 (3.5-5.0) g/dL Amylase 52 (30-110) U/L Lipase 41 (23-300) U/L Urine Color Urine Appearance (Clear) Urine pH (5.0-8.0) Ur Specific [place] (1.001-1.035) Urine Protein (Negative) Urine Glucose (UA) (Negative) Urine Ketones (Negative) Urine Blood (Negative) Urine Nitrite (Negative) Urine Bilirubin (Negative) Urine Urobilinogen (<2.0) mg/dL Ur Leukocyte Esterase (Negative) - EKG Data -: EKG Interpreted by Me EKG Comments: 12-lead Electrocardiogram Interpretation Note EKG was reviewed and interpreted by myself. 12-lead ECG performed at 1344 is interpreted by me as revealing normal sinus rhythm at a rate of 77 beats per minute. [place] is normal. AR intervals 150 ms, QRS duration is 92 ms, QTc is 400 ms.. There were no ST or T wave abnormalities to suggest myocardial ischemia or injury. R wave progression across the precordium was satisfactory. By my interpretation this EKG is non-diagnostic for acute ischemia. Disposition Clinical Impression: Syncope, Abdominal pain of unknown etiology Disposition: HOME SELF-CARE Condition: Good Instructions (If sedation given, give patient instructions): Syncope (ED) Prescriptions: Mag Hydrox/Al Hydrox/Simeth [Maalox] 30 ml PO BID PRN #300 ml PRN Reason: Dyspepsia Ondansetron Odt [Zofran Odt] 4 mg PO Q8HR PRN 3 Days #9 tab PRN Reason: Nausea Is patient prescribed a controlled substance at d/c from ED?: No Referrals: None,Stated [Primary Care Provider] - 1-2 days Zara Cedeno MD [REFERRING] - 1-2 days Anibal Small [STAFF PHYSICIAN] - 1-2 days Time of Disposition: 18:10
[2021-10-30 16:16] LABS: INR 0.9 (<1.2); Partial Thromboplastin Time 24.1 sec (22.0-30.0); Prothrombin Time 9.7 sec (9.0-12.0)
[2021-10-30 16:20] LABS: ALT 16 U/L (4-49); AST 21 U/L (17-59); African American GFR (CKD) >90 (>60 ml/min/1.73 sqM); Albumin 4.3 g/dL (3.5-5.0); Alkaline Phosphatase 116 U/L (38-126); Amylase 52 U/L (30-110); Anion Gap 12 mmol/L; Blood Urea Nitrogen 11 mg/dL (9-20); Calcium 9.1 mg/dL (8.4-10.2); Carbon Dioxide 19 mmol/L (22-30); Chloride 111 mmol/L (98-107); Glucose 99 mg/dL (74-99); Lipase 41 U/L (23-300); Non-African American GFR(CKD) >90 (>60 ml/min/1.73 sqM); Potassium 4.2 mmol/L (3.5-5.1); Sodium 142 mmol/L (137-145); Total Bilirubin 0.5 mg/dL (0.2-1.3); Total Protein 6.7 g/dL (6.3-8.2)
--- NOTE | 2021-10-30 16:30 | XR ---
EXAMINATION TYPE: XR chest 2V DATE OF EXAM: 10/30/2021 4:13 PM COMPARISON: Chest radiographs from 08/22/2018. TECHNIQUE: XR chest 2V Frontal and lateral views of the chest. CLINICAL INDICATION:Male, 56 years old with history of syncope; FINDINGS: Lungs/Pleura: There is no evidence of pleural effusion, focal consolidation, or pneumothorax. Pulmonary vascularity: Unremarkable. Heart/mediastinum: Cardiomediastinal silhouette is unremarkable. Musculoskeletal: No acute osseous pathology. IMPRESSION: No acute cardiopulmonary disease/process.
[2021-10-30 17:21] LABS: Appearance,Urine Clear (Clear); Bilirubin,Urine Negative (Negative); Blood,Urine Negative (Negative); Color,Urine Yellow; Glucose,Urine (UA) Negative (Negative); Ketones,Urine Negative (Negative); Leukocyte Esterase,Urine Negative (Negative); Nitrite,Urine Negative (Negative); PH, Urine 5.5 (5.0-8.0); Protein,Urine Negative (Negative); Specific Gravity,Urine 1.019 (1.001-1.035); Urobilinogen,Urine <2.0 mg/dL (<2.0)
[2021-10-30 17:37] VITALS: RESP 20
[2021-10-30 19:04] VITALS: BP 166/89; PULSE 70
== END 2021-10-30 19:03 | disposition home or self-care (01) ==
LOC: EC 13:13
DX: R55 Syncope and collapse (principal); R10.13 Epigastric pain; J45.909 Unspecified asthma, uncomplicated; Z86.73 Personal history of transient ischemic attack (TIA), and cerebral infarction without residual deficits; Z88.0 Allergy status to penicillin; Z88.2 Allergy status to sulfonamides; Z91.030 Bee allergy status; Z88.5 Allergy status to narcotic agent
CPT/HCPCS: 99284; 96374; 96375; 96361; 36415; 93005; 80053; 82150; 83690; 83735; 84484; 85025; 85610; 85730; 81003; 71046; 72125; 70450; J1200; J2405

== ENCOUNTER 2023-12-01 11:41 | Emergency (ER) | payer MEDICARE, OTHER ==
[2023-12-01 11:45] VITALS: TEMP 98.1
--- NOTE | 2023-12-01 11:50 | ED ---
Abdominal Pain HPI - General Chief Complaint: Abdominal Pain Stated Complaint: L side abd pain Time Seen by Provider: 12/01/23 11:45 Source: patient, RN notes reviewed Mode of arrival: ambulatory Limitations: no limitations - History of Present Illness Initial Comments: This is a 58-year-old male who presents to the emergency department for abdominal pain. Reports left lower quadrant abdominal pain starting about 3 days ago. Denies any changes in bowel/bladder habits. Also denies any nausea or vomiting. Describes this as a tightening and burning pain. Denies any radiation of pain into the back. Pain is worse with movement and when he tried to stretch, it got particularly bad. Denies any history of diverticulosis or diverticulitis. He has never had a colonoscopy. Denies any fevers or chills. MD Complaint: abdominal pain - Related Data Previous Rx's Medication Instructions Recorded Ketorolac [Toradol] 10 mg PO Q6HR PRN #15 tab 12/01/23 methocarbamoL [Robaxin-750] 1,500 mg PO TID PRN #30 tab 12/01/23 Allergies Allergy/AdvReac Type Severity Reaction Status Date / Time Penicillins Allergy Unknown Unknown Verified 12/01/23 13:56 Childhood Sulfa (Sulfonamide Allergy Unknown Unknown Verified 12/01/23 13:56 Antibiotics) venom-honey bee Allergy Anaphylaxis Verified 12/01/23 13:56 codeine AdvReac Vomiting Verified 12/01/23 13:56 Review of Systems ROS Statement: Those systems with pertinent positive or pertinent negative responses have been documented in the HPI. ROS Other: All systems not noted in ROS Statement are negative. Past Medical History Past Medical History: Asthma, CVA/TIA History of Any Multi-Drug Resistant Organisms: None Reported Past Surgical History: Appendectomy Additional Past Surgical History / Comment(s): Abd Past Psychological History: No Psychological Hx Reported Past Alcohol Use History: Occasional Past Drug Use History: None Reported General Exam - General Exam Comments Initial Comments: Visual Physical Exam Vital signs reviewed General: Well-appearing, nontoxic, no acute distress. Head: Normocephalic, atraumatic Eyes: PERRLA, EOMI ENT: Airway patent Chest: Nonlabored breathing Skin: No visual rash, normal skin tone Neuro: Alert and oriented 3 Musculoskeletal: No gross abnormalities Limitations: no limitations General appearance: alert, in no apparent distress Head exam: Present: atraumatic, normocephalic, normal inspection Respiratory exam: Present: normal lung sounds bilaterally. Absent: respiratory distress, wheezes, rales, rhonchi, stridor Cardiovascular Exam: Present: regular rate, normal rhythm, normal heart sounds. Absent: systolic murmur, diastolic murmur, rubs, gallop, clicks GI/Abdominal exam: Present: soft, tenderness (LLQ), normal bowel sounds. Absent: distended Neurological exam: Present: alert, oriented X3, CN II-XII intact Psychiatric exam: Present: normal affect, normal mood Skin exam: Present: warm, dry, intact, normal color. Absent: rash Course Vital Signs 12/01/23 12/01/23 11:42 15:27 Temperature 98.1 F Pulse Rate 86 62 Respiratory 16 18 Rate Blood Pressure 160/98 147/98 O2 Sat by Pulse 97 98 Oximetry Medical Decision Making - Medical Decision Making This is a 58-year-old male who presents to the emergency department for abdominal pain. Was pt. sent in by a medical professional or institution? @ -No Did you speak to anyone other than the patient for history? @ -No Did you review nursing and triage notes? @ -Yes, and I agree, it is accurate with regards to the patient's symptoms. Were old charts reviewed? @ -No Differential Diagnosis? @ -Differential Abdominal Pain Men: Appendicitis, cholecystitis, diverticulosis, ischemic bowel, pancreatitis, hepatitis, UTI, gastroenteritis, AAA, incarcerated hernia, bowel obstruction, constipation, inflammatory bowel, hepatitis, peptic ulcer disease, splenic infar ction, perforated viscus, testicular torsion, this is not meant to be an all- inclusive list EKG interpreted by me (3pts min.)? @ -Not obtained X-rays interpreted by me (1pt min.)? @ -Not obtained CT interpreted by me (1pt min.)? @ -CT scan of the abdomen and pelvis obtained. My interpretation identifies no evidence of bowel wall thickening or free air. U/S interpreted by me (1pt. min.)? @ -Not obtained What testing was considered but not performed? (CT, X-rays, U/S, labs)? Why? @ -None What meds were considered but not given? Why? @ -None Did you discuss the management of the patient with other professionals? @ -No Did you reconcile home meds? @ -No Was smoking cessation discussed for >3mins.? @ -I discussed smoking cessation for greater than 3 minutes. The risk of smoking were discussed with the patient including but not limited to risks of cancer, stroke, coronary artery disease and COPD. Also discussed with patient were multiple methods of quitting smoking. Lastly we discussed the financial cost of smoking. Was critical care preformed (if so, how long)? @ -No Were there social determinants of health that impacted care today? How? (Homelessness, low income, unemployed, alcoholism, drug addiction, trans portation, low edu. Level, literacy, decrease access to med. care, [facility], rehab)? @ -No Was there de-escalation of care discussed even if they declined? (Discuss DNR or withdrawal of care, Hospice)? @ -No What co-morbidities impacted this encounter? (DM, HTN, Smoking, COPD, CAD, Cancer, CVA, Hep., AIDS, mental health diagnosis, sleep apnea, morbid obesity)? @ -Smoking Was patient admitted / discharged? @ -Discharged. Lab work unremarkable. Urinalysis negative for signs of infection. CT scan of the abdomen and pelvis reveals no acute process. He was fairly tender on exam. No hernias were identified on exam. The cause of his pain is not entirely clear at this point. It could be musculoskeletal in nature. Pain was managed in the emergency department. Prescription for Toradol and Robaxin provided to see if that offers any additional benefit. Otherwise advised close follow-up with his primary care provider. Patient discharged home in stable condition. Case discussed with ED attending Dr. Willis. Return precautions reviewed in depth, the patient is instructed to return to the emergency department with any new, worsening, or concerning symptoms. Patient verbalized understanding. Undiagnosed new problem with uncertain prognosis? @ -None Drug Therapy requiring intensive monitoring for toxicity (Heparin, Nitro, Insulin, Cardizem)? @ -None Were any procedures done? @ -None Diagnosis/symptom? @ -Abdominal pain Acute, or Chronic, or Acute on Chronic? @ -Acute Uncomplicated (without systemic symptoms) or Complicated (systemic symptoms)? @ -Uncomplicated Side effects of treatment? @ -None Exacerbation, Progression, or Severe Exacerbation] @ -Not applicable Poses a threat to life or bodily function? @ -No - Lab Data Result diagrams: 12/01/23 12:08 12/01/23 12:08 Lab Results 12/01/23 12/01/23 12/01/23 Range/Units 12:08 12:08 12:08 WBC 9.0 (3.8-10.6) k/uL RBC 3.65 L (4.30-5.90) m/uL Hgb 13.1 (13.0-17.5) gm/dL Hct 39.1 (39.0-53.0) % MCV 107.0 H (80.0-100.0) fL MCH 35.9 H (25.0-35.0) pg MCHC 33.5 (31.0-37.0) g/dL RDW 15.4 (11.5-15.5) % Plt Count 345 (150-450) k/uL MPV 8.4 Neutrophils % 67 % Lymphocytes % 26 % Monocytes % 5 % Eosinophils % 1 % Basophils % 1 % Neutrophils # 6.0 (1.3-7.7) k/uL Lymphocytes # 2.3 (1.0-4.8) k/uL Monocytes # 0.4 (0-1.0) k/uL Eosinophils # 0.1 (0-0.7) k/uL Basophils # 0.1 (0-0.2) k/uL Macrocytosis Moderate Sodium 138 (137-145) mmol/L Potassium 4.8 (3.5-5.1) mmol/L Chloride 106 (98-107) mmol/L Carbon Dioxide 25 (22-30) mmol/L Anion Gap 7 mmol/L BUN 16 (9-20) mg/dL Creatinine 0.93 (0.66-1.25) mg/dL Est GFR (CKD-EPI)AfAm >90 (>60 ml/min/1.73 sqM) Est GFR (CKD-EPI)NonAf >90 (>60 ml/min/1.73 sqM) Glucose 169 H (74-99) mg/dL Plasma Lactic Acid Sameer 2.0 (0.7-2.0) mmol/L Calcium 8.9 (8.4-10.2) mg/dL Total Bilirubin 0.6 (0.2-1.3) mg/dL AST 23 (17-59) U/L ALT 19 (4-49) U/L Alkaline Phosphatase 84 (38-126) U/L Total Protein 6.3 (6.3-8.2) g/dL Albumin 3.9 (3.5-5.0) g/dL Amylase 45 (30-110) U/L Lipase 48 (23-300) U/L Urine Color Urine Appearance (Clear) Urine pH (5.0-8.0) Ur Specific Canon (1.001-1.035) Urine Protein (Negative) Urine Glucose (UA) (Negative) Urine Ketones (Negative) Urine Blood (Negative) Urine Nitrite (Negative) Urine Bilirubin (Negative) Urine Urobilinogen (<2.0) mg/dL Ur Leukocyte Esterase (Negative) 12/01/23 Range/Units 14:15 WBC (3.8-10.6) k/uL RBC (4.30-5.90) m/uL Hgb (13.0-17.5) gm/dL Hct (39.0-53.0) % MCV (80.0-100.0) fL MCH (25.0-35.0) pg MCHC (31.0-37.0) g/dL RDW (11.5-15.5) % Plt Count (150-450) k/uL MPV Neutrophils % % Lymphocytes % % Monocytes % % Eosinophils % % Basophils % % Neutrophils # (1.3-7.7) k/uL Lymphocytes # (1.0-4.8) k/uL Monocytes # (0-1.0) k/uL Eosinophils # (0-0.7) k/uL Basophils # (0-0.2) k/uL Macrocytosis Sodium (137-145) mmol/L Potassium (3.5-5.1) mmol/L Chloride (98-107) mmol/L Carbon Dioxide (22-30) mmol/L Anion Gap mmol/L BUN (9-20) mg/dL Creatinine (0.66-1.25) mg/dL Est GFR (CKD-EPI)AfAm (>60 ml/min/1.73 sqM) Est GFR (CKD-EPI)NonAf (>60 ml/min/1.73 sqM) Glucose (74-99) mg/dL Plasma Lactic Acid Sameer (0.7-2.0) mmol/L Calcium (8.4-10.2) mg/dL Total Bilirubin (0.2-1.3) mg/dL AST (17-59) U/L ALT (4-49) U/L Alkaline Phosphatase (38-126) U/L Total Protein (6.3-8.2) g/dL Albumin (3.5-5.0) g/dL Amylase (30-110) U/L Lipase (23-300) U/L Urine Color Yellow Urine Appearance Clear (Clear) Urine pH 5.5 (5.0-8.0) Ur Specific Canon 1.039 H (1.001-1.035) Urine Protein Negative (Negative) Urine Glucose (UA) Negative (Negative) Urine Ketones Negative (Negative) Urine Blood Negative (Negative) Urine Nitrite Negative (Negative) Urine Bilirubin Negative (Negative) Urine Urobilinogen <2.0 (<2.0) mg/dL Ur Leukocyte Esterase Negative (Negative) - Radiology Data Radiology results: report reviewed, image reviewed Disposition Clinical Impression: Abdominal pain, Nicotine dependence Disposition: HOME SELF-CARE Instructions (If sedation given, give patient instructions): Abdominal Pain (ED) Additional Instructions: Return to the emergency department with any new, worsening, or concerning symptoms. Take the Toradol with Tylenol as needed for pain relief. If you choose to take the Toradol, do not take any other anti-inflammatories such as ibuprofen, take one or the other. Take the Robaxin as 1 to 2 tablets up to 3-4 times daily. Follow up with your primary care provider in 1-2 days. Prescriptions: methocarbamoL [Robaxin-750] 1,500 mg PO TID PRN #30 tab PRN Reason: Pain Ketorolac [Toradol] 10 mg PO Q6HR PRN #15 tab PRN Reason: Pain Is patient prescribed a controlled substance at d/c from ED?: No Referrals: None,Stated [Primary Care Provider] - 1-2 days Time of Disposition: 14:54
[2023-12-01 12:27] LABS: ALT 19 U/L (4-49); AST 23 U/L (17-59); African American GFR (CKD) >90 (>60 ml/min/1.73 sqM); Albumin 3.9 g/dL (3.5-5.0); Alkaline Phosphatase 84 U/L (38-126); Amylase 45 U/L (30-110); Anion Gap 7 mmol/L; Blood Urea Nitrogen 16 mg/dL (9-20); Calcium 8.9 mg/dL (8.4-10.2); Carbon Dioxide 25 mmol/L (22-30); Chloride 106 mmol/L (98-107); Glucose 169 mg/dL (74-99); Lipase 48 U/L (23-300); Non-African American GFR(CKD) >90 (>60 ml/min/1.73 sqM); Potassium 4.8 mmol/L (3.5-5.1); Sodium 138 mmol/L (137-145); Total Bilirubin 0.6 mg/dL (0.2-1.3); Total Protein 6.3 g/dL (6.3-8.2)
[2023-12-01 12:29] LABS: Basophils # (A) 0.1 k/uL (0-0.2); Basophils % (A) 1 %; Eosinophils # (A) 0.1 k/uL (0-0.7); Eosinophils % (A) 1 %; HCT 39.1 % (39.0-53.0); HGB 13.1 gm/dL (13.0-17.5); Lymphocytes # (A) 2.3 k/uL (1.0-4.8); Lymphocytes % (A) 26 %; MCH 35.9 pg (25.0-35.0); MCHC 33.5 g/dL (31.0-37.0); Macrocytosis Moderate; Mean Platelet Volume 8.4; Monocytes # (A) 0.4 k/uL (0-1.0); Monocytes % (A) 5 %; Neutrophils % (A) 67 %; Platelet Count 345 k/uL (150-450); RBC 3.65 m/uL (4.30-5.90); RDW 15.4 % (11.5-15.5)
[2023-12-01] MEDS: SODIUM CHLORIDE 0.9% 1,000 ML IV STA (13:18)
[2023-12-01] MEDS: KETOROLAC 15 MG/ML 1 ML VIAL IVP STA (13:18)
[2023-12-01] MEDS: MORPHINE SULFATE 4 MG/ML SYRINGE IVP STA ×2 (13:19→15:26)
[2023-12-01 14:19] LABS: Appearance,Urine Clear (Clear); Bilirubin,Urine Negative (Negative); Blood,Urine Negative (Negative); Color,Urine Yellow; Glucose,Urine (UA) Negative (Negative); Ketones,Urine Negative (Negative); Leukocyte Esterase,Urine Negative (Negative); Nitrite,Urine Negative (Negative); PH, Urine 5.5 (5.0-8.0); Protein,Urine Negative (Negative); Specific Gravity,Urine 1.039 (1.001-1.035); Urobilinogen,Urine <2.0 mg/dL (<2.0)
--- NOTE | 2023-12-01 14:22 | CT ---
EXAMINATION TYPE: CT abdomen pelvis w con DATE OF EXAM: 12/01/2023 COMPARISON: None HISTORY: LLQ abdominal pain CT DLP: 675.1 mGycm Automated exposure control for dose reduction was used. TECHNIQUE: Helical acquisition of images was performed from the lung bases through the pelvis. CONTRAST: Performed without Oral Contrast and with IV Contrast, patient injected with 100 ml mL of Isovue 300. FINDINGS: The lung bases are clear. There are small gallstones. There is no biliary ductal dilatation. There is no focal mass or organomegaly involving the liver, pancreas, spleen or adrenal glands. There is no solid renal mass or hydronephrosis and there is homogeneous contrast enhancement of the r enal parenchyma. The caliber the abdominal aorta is normal is no retroperitoneal adenopathy or hemorr carol. The bowel loops are normal in caliber and there is no evidence of dilatation or obstruction. No infla mmatory changes are identified in the bowel wall or mesentery. There is no free intraperitoneal air or fluid. No pelvic mass, free fluid, abscess or adenopathy. The osseous structures and soft tissues are intact. IMPRESSION: Cholelithiasis with no other significant abnormality seen. [facility], , 12/01/2023 2:20 PM
[2023-12-01] MEDS: traMADol 50 MG STARTER PACK 3 TAB BTL PO STA (15:24)
[2023-12-01] MEDS: ORPHENADRINE 30 MG/ML 2 ML VIAL IVP STA (15:27)
[2023-12-01 15:29] VITALS: BP 147/98; PULSE 62; RESP 18
== END 2023-12-01 15:35 | disposition home or self-care (01) ==
LOC: EC 11:41
DX: R10.32 Left lower quadrant pain (principal); F17.200 Nicotine dependence, unspecified, uncomplicated; Z86.73 Personal history of transient ischemic attack (TIA), and cerebral infarction without residual deficits; Z88.0 Allergy status to penicillin; Z88.2 Allergy status to sulfonamides; Z88.5 Allergy status to narcotic agent; Z91.030 Bee allergy status
CPT/HCPCS: 99284; 96374; 96375 ×2; 96376; 96361; 36415; 80053; 82150; 83605; 83690; 85025; 81003; 74177; 99406; J2270; J2360; J1885; Q9967

== ENCOUNTER 2023-12-18 10:13 | Observation (INO) | payer MEDICARE, OTHER ==
--- NOTE | 2023-12-18 10:49 | ED ---
Neck Injury/Pain HPI - General Chief Complaint: Neck Pain/Injury Stated Complaint: neck pain Time Seen by Provider: 12/18/23 10:30 Source: patient, RN notes reviewed Mode of arrival: ambulatory Limitations: language barrier - History of Present Illness Initial Comments: This is a 58-year-old male presenting to the emergency department chief complaint of left-sided neck pain and mass. Patient states that this morning he went to the [employer] kitchen to work when it is a fellow colleague told him that he has a mass/swelling on the left side of his neck is concerned and urged the patient to seek further evaluation. Patient states that this morning he noticed pain in his neck and swelling. He denies shortness of breath, difficulty breathing, chest pain, heart palpitations, sore throat, fevers, chills, rhinorrhea, cough or congestion. Patient denies previous symptoms similar to this. denies radicular symptoms of the neck and bilateral upper extremities. - Related Data Previous Rx's Medication Instructions Recorded Ketorolac [Toradol] 10 mg PO Q6HR PRN #15 tab 12/01/23 methocarbamoL [Robaxin-750] 1,500 mg PO TID PRN #30 tab 12/01/23 Allergies Allergy/AdvReac Type Severity Reaction Status Date / Time Penicillins Allergy Unknown Unknown Verified 12/18/23 10:43 Childhood Sulfa (Sulfonamide Allergy Unknown Unknown Verified 12/18/23 10:43 Antibiotics) venom-honey bee Allergy Anaphylaxis Verified 12/18/23 10:43 codeine AdvReac Vomiting Verified 12/18/23 10:43 Review of Systems ROS Statement: Those systems with pertinent positive or pertinent negative responses have been documented in the HPI. ROS Other: All systems not noted in ROS Statement are negative. Past Medical History Past Medical History: Asthma, CVA/TIA History of Any Multi-Drug Resistant Organisms: None Reported Past Surgical History: Appendectomy Additional Past Surgical History / Comment(s): Abd Past Psychological History: No Psychological Hx Reported Smoking Status: Unknown if ever smoked Past Alcohol Use History: Occasional Past Drug Use History: None Reported General Exam Limitations: language barrier (deaf) Head exam: Present: atraumatic, normocephalic, normal inspection Eye exam: Present: normal appearance, PERRL, EOMI. Absent: scleral icterus, conjunctival injection, periorbital swelling Expanded Throat exam: normal inspection. negative: tonsillar erythema, tonsillomegaly Neck exam: Present: tenderness (left anterior neck with aprox 3 cm palpable fluctuant mass, no overlying erythema or purulence), lymphadenopathy (anterior cervical left sided) Respiratory exam: Present: normal lung sounds bilaterally. Absent: respiratory distress, wheezes, rales, rhonchi, stridor Cardiovascular Exam: Present: regular rate, normal rhythm, normal heart sounds. Absent: systolic murmur, diastolic murmur, rubs, gallop, clicks GI/Abdominal exam: Present: soft, normal bowel sounds. Absent: distended, tenderness, guarding, rebound, rigid Extremities exam: Present: normal inspection, full ROM, normal capillary refill. Absent: tenderness, pedal edema, joint swelling, calf tenderness Back exam: Present: normal inspection Skin exam: Present: warm, dry, intact, normal color. Absent: rash Course Vital Signs 12/18/23 12/18/23 10:40 12:10 Temperature 97.5 F L 97.7 F Pulse Rate 69 56 L Respiratory 20 18 Rate Blood Pressure 182/97 188/85 O2 Sat by Pulse 98 98 Oximetry Medical Decision Making - Medical Decision Making Was pt. sent in by a medical professional or institution (, PA, HARNESS PULLER, urgent care, hospital, or intermediate...) When possible be specific @ -No Did you speak to anyone other than the patient for history (EMS, parent, family, police, friend...)? What history was obtained from this source @ -No Did you review nursing and triage notes (agree or disagree)? Why? @ -I reviewed and agree with nursing and triage notes Were old charts reviewed (outside hosp., previous admission, EMS record, old EKG, old radiological studies, urgent care reports/EKG's, intermediate records)? Report findings @ -No old charts were reviewed Differential Diagnosis (chest pain, altered mental status, abdominal pain women, abdominal pain men, vaginal bleeding, weakness, fever, dyspnea, syncope, headache, dizziness, GI bleed, back pain, seizure, CVA, palpatations, mental health, musculoskeletal)? @ -lymphadenopathy, viral infection, strep pharyngitis, lymphoma, peritonsillar mass, retropharyngeal abscess, this list is not all inclusive EKG interpreted by me (3pts min.). @ -None X-rays interpreted by me (1pt min.). @ -None done CT interpreted by me (1pt min.). @ -Soft tissue CT with contrast of the neck reveals enlarged left neck lymph nod es with findings suspicious for neoplasm, possibly lymphoma, aspiration biopsy likely indicated U/S interpreted by me (1pt. min.). @ -None done What testing was considered but not performed or refused? (CT, X-rays, U/S, labs)? Why? @ -None What meds were considered but not given or refused? Why? @ -None Did you discuss the management of the patient with other professionals (professionals i.e. , PA, HARNESS PULLER, lab, RT, psych nurse, social science professor, incinerator plant laborer, teacher, operations officer afloat, binder caser)? Give summary @ -i spoke with district operations manager HARNESS PULLER with [facility], [place], in regard to the patient's laboratory findings and CT scan concerning for possible neoplasm. Patient is accepted for admission with ENT and hematology oncology on consult. Was smoking cessation discussed for >3mins.? @ -No Was critical care preformed (if so, how long)? @ -No Were there social determinants of health that impacted care today? How? (Homelessness, low income, unemployed, alcoholism, drug addiction, transpor tation, low edu. Level, literacy, decrease access to med. care, [facility], rehab)? @ -No Was there de-escalation of care discussed even if they declined (Discuss DNR or withdrawal of care, Hospice)? DNR status @ -No What co-morbidities impacted this encounter? (DM, HTN, Smoking, COPD, CAD, Cancer, CVA, ARF, Chemo, Hep., AIDS, mental health diagnosis, sleep apnea, morbid obesity)? @ -None Was patient admitted / discharged? Hospital course, mention meds given and route, prescriptions, significant lab abnormalities, going to OR and other pertinent info. @ -admitted. 58-year-old male with neck pain and palpable left-sided neck mass. Patient is noted to have swelling of the left side of the neck with a palpable mass measuring approximately 3 cm with no overlying erythema. Vitals are stable. Patient is not exhibiting any signs concerning for respiratory distress. Patient provided with pain medication and will be sent for CT imaging for further evaluation of mass. Has an elevated MCV of 107.4 and marked macrocytosis, CMP within normal limits, negative COVID, flu, RSV, and strep. He is concerning for enlarged left-sided neck lymph nodes with suspicion for neoplasm. Patient will be admitted to internal medicine with ENT and hematology oncology for further evaluation with probable aspiration/biospy. Patient is provided with additional pain medication. Discussed with Dr. Vasquez. Undiagnosed new problem with uncertain prognosis? @ -No Drug Therapy requiring intensive monitoring for toxicity (Heparin, Nitro, Insulin, Cardizem)? @ -No Were any procedures done? @ -No Diagnosis/symptom? @ -neck mass, neck pain Acute, or Chronic, or Acute on Chronic? @ -Acute Uncomplicated (without systemic symptoms) or Complicated (systemic symptoms)? @ -complicated Side effects of treatment? @ -No Exacerbation, Progression, or Severe Exacerbation? @ -No Poses a threat to life or bodily function? How? (Chest pain, [place], [place], pneumonia, PE, COPD, DKA, ARF, appy, cholecystitis, CVA, Diverticulitis, Homicidal, Suicidal, threat to staff... and all critical care pts) @ -No - Lab Data Result diagrams: 12/18/23 11:07 12/18/23 11:44 Lab Results 12/18/23 12/18/23 12/18/23 Range/Units 11:07 11:07 11:07 WBC 9.4 (3.8-10.6) k/uL RBC 3.85 L (4.30-5.90) m/uL Hgb 13.6 (13.0-17.5) gm/dL Hct 41.4 (39.0-53.0) % MCV 107.4 H (80.0-100.0) fL MCH 35.2 H (25.0-35.0) pg MCHC 32.8 (31.0-37.0) g/dL RDW 15.5 (11.5-15.5) % Plt Count 325 (150-450) k/uL MPV 8.4 Neutrophils % 71 % Lymphocytes % 23 % Monocytes % 4 % Eosinophils % 1 % Basophils % 0 % Neutrophils # 6.7 (1.3-7.7) k/uL Lymphocytes # 2.1 (1.0-4.8) k/uL Monocytes # 0.4 (0-1.0) k/uL Eosinophils # 0.1 (0-0.7) k/uL Basophils # 0.0 (0-0.2) k/uL Manual Slide Review Performed Macrocytosis Marked A Sodium (137-145) mmol/L Potassium (3.5-5.1) mmol/L Chloride (98-107) mmol/L Carbon Dioxide (22-30) mmol/L Anion Gap mmol/L BUN (9-20) mg/dL Creatinine (0.66-1.25) mg/dL Est GFR (CKD-EPI)AfAm (>60 ml/min/1.73 sqM) Est GFR (CKD-EPI)NonAf (>60 ml/min/1.73 sqM) Glucose (74-99) mg/dL Calcium (8.4-10.2) mg/dL Total Bilirubin (0.2-1.3) mg/dL AST (17-59) U/L ALT (4-49) U/L Alkaline Phosphatase (38-126) U/L Total Protein (6.3-8.2) g/dL Albumin (3.5-5.0) g/dL Influenza Type A (PCR) Not Detected (Not Detectd) Influenza Type B (PCR) Not Detected (Not Detectd) RSV (PCR) Not Detected (Not Detectd) SARS-CoV-2 (PCR) Not Detected (Not Detectd) Group A Strep (PCR) NOT DETECTED (Not Detectd) 12/18/23 Range/Units 11:44 WBC (3.8-10.6) k/uL RBC (4.30-5.90) m/uL Hgb (13.0-17.5) gm/dL Hct (39.0-53.0) % MCV (80.0-100.0) fL MCH (25.0-35.0) pg MCHC (31.0-37.0) g/dL RDW (11.5-15.5) % Plt Count (150-450) k/uL MPV Neutrophils % % Lymphocytes % % Monocytes % % Eosinophils % % Basophils % % Neutrophils # (1.3-7.7) k/uL Lymphocytes # (1.0-4.8) k/uL Monocytes # (0-1.0) k/uL Eosinophils # (0-0.7) k/uL Basophils # (0-0.2) k/uL Manual Slide Review Macrocytosis Sodium 136 L (137-145) mmol/L Potassium 4.3 (3.5-5.1) mmol/L Chloride 110 H (98-107) mmol/L Carbon Dioxide 23 (22-30) mmol/L Anion Gap 3 mmol/L BUN 12 (9-20) mg/dL Creatinine 0.82 (0.66-1.25) mg/dL Est GFR (CKD-EPI)AfAm >90 (>60 ml/min/1.73 sqM) Est GFR (CKD-EPI)NonAf >90 (>60 ml/min/1.73 sqM) Glucose 99 (74-99) mg/dL Calcium 8.4 (8.4-10.2) mg/dL Total Bilirubin 0.7 (0.2-1.3) mg/dL AST 21 (17-59) U/L ALT 15 (4-49) U/L Alkaline Phosphatase 86 (38-126) U/L Total Protein 5.6 L (6.3-8.2) g/dL Albumin 3.4 L (3.5-5.0) g/dL Influenza Type A (PCR) (Not Detectd) Influenza Type B (PCR) (Not Detectd) RSV (PCR) (Not Detectd) SARS-CoV-2 (PCR) (Not Detectd) Group A Strep (PCR) (Not Detectd) Disposition Clinical Impression: Neck mass, Lymphadenopathy Disposition: ADMITTED IP TO THIS [facility] Condition: Serious Decision to Admit Reason: Admit from EC Decision Date: 12/18/23
[2023-12-18] MEDS: IBUPROFEN 800 MG TAB PO STA (11:13)
[2023-12-18 11:37] LABS: Basophils % (A) 0 %; Eosinophils # (A) 0.1 k/uL (0-0.7); Eosinophils % (A) 1 %; HCT 41.4 % (39.0-53.0); HGB 13.6 gm/dL (13.0-17.5); Lymphocytes # (A) 2.1 k/uL (1.0-4.8); Lymphocytes % (A) 23 %; MCH 35.2 pg (25.0-35.0); MCHC 32.8 g/dL (31.0-37.0); MCV 107.4 fL (80.0-100.0); Macrocytosis Marked; Mean Platelet Volume 8.4; Monocytes # (A) 0.4 k/uL (0-1.0); Monocytes % (A) 4 %; Neutrophils # (A) 6.7 k/uL (1.3-7.7); Neutrophils % (A) 71 %; Platelet Count 325 k/uL (150-450); RBC 3.85 m/uL (4.30-5.90); RDW 15.5 % (11.5-15.5); WBC 9.4 k/uL (3.8-10.6)
--- NOTE | 2023-12-18 11:59 | CT ---
EXAMINATION TYPE: CT soft tissue neck w con DATE OF EXAM: 12/18/2023 11:36 AM COMPARISON: None CLINICAL INDICATION: Male, 58 years old with history of mass left side neck, pain; PHH, left neck teodora n and swelling TECHNIQUE: CT scan of the neck is performed following with IV Contrast, patient injected with 100 mL of Isovue 3 00. Axial images are obtained, coronal and sagittal reformatted images are reviewed. CT DLP: 213.[address] CTDI: mGy Automated exposure control for dose reduction was used. FINDINGS: Findings: The thyroid gland is not enlarged and there are no focal masses. The larynx including the thyroid, arytenoid, cricoid cartilages as well as the vocal cords are normal and symmetric without laryngeal mass. The tongue base, epiglottis, aryepiglottic folds, piriform sinuses and vallecula are normal and symme tric. There is no oral or nasal pharyngeal or parapharyngeal or pharyngeal soft tissue mass or enhancement. The submandibular glands and parotid glands are normal and symmetric. The great vessels of the neck are normal. There is a enlarged 18.5 mm short axis jugular lymph node anterior to the left lateral mastoid muscle . A second jugular lymph node anterior to the sternocleidomastoid muscle is 17.4 mm. A third enlarged lymph node in the submental region is approximately 10.5 mm on the short axis. Visualized osseous structures are intact. Small mucous retention cyst or polyp in the left maxillary sinus. IMPRESSION: Enlarged left neck lymph nodes as described above. The findings are suspicious for neoplasm possibly lymphoma. Aspiration or biopsy likely indicated [facility] Dimitri Rivero, Workstation: LIZET 12/18/2023 11:56 AM
[2023-12-18] MEDS ORDERED: IBUPROFEN 400 MG TAB PO PRN (12:34)
[2023-12-18] MEDS ORDERED: ACETAMINOPHEN TAB 325 MG TAB PO PRN (12:34)
[2023-12-18] MEDS ORDERED: NALOXONE 0.4 MG/ML 1 ML VIAL IV PRN (12:34)
[2023-12-18 12:56] LABS: ALT 15 U/L (4-49); AST 21 U/L (17-59); African American GFR (CKD) >90 (>60 ml/min/1.73 sqM); Albumin 3.4 g/dL (3.5-5.0); Alkaline Phosphatase 86 U/L (38-126); Anion Gap 3 mmol/L; Blood Urea Nitrogen 12 mg/dL (9-20); Calcium 8.4 mg/dL (8.4-10.2); Carbon Dioxide 23 mmol/L (22-30); Chloride 110 mmol/L (98-107); Glucose 99 mg/dL (74-99); Non-African American GFR(CKD) >90 (>60 ml/min/1.73 sqM); Potassium 4.3 mmol/L (3.5-5.1); Sodium 136 mmol/L (137-145); Total Bilirubin 0.7 mg/dL (0.2-1.3); Total Protein 5.6 g/dL (6.3-8.2)
[2023-12-18] MEDS: MORPHINE SULFATE 4 MG/ML SYRINGE IVP STA (12:56)
--- NOTE | 2023-12-18 15:06 | P.HPIM ---
History of Present Illness H&P Date: 12/18/23 History of Presenting Illness: Patient is a pleasant 58-year-old male with a past medical history of CVA with residual aphasia and occasional nicotine use. He presented to the emergency department with a chief complaint of left lateral neck pain and swelling. Patient reports he awoke this morning and noticed that he had a stiff neck. Patient reports he began rubbing his neck and noted he had painful swelling on the left side. 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 Patient denies having any fevers, chills, diaphoresis, recent infection or exposure to known ill contact, he denies having any nasal congestion or drainage, dysphagia or sore throat, chest pain, palpitations, shortness of breath, cough, nausea, or vomiting. He does report that his neck feels stiff and is painful upon palpation of the swollen area and if he tries to turn his head to the left. He reports the pain and swelling began today and was first noticed upon awakening with a stiff neck. He denies any previous issues of neck swelling and denies having any numbness/tingling/weakness in his extremities. Upon arrival to our facility, patient underwent evaluation in the emergency department. Vital signs upon arrival show blood pressure 182/97, heart rate 69, respiratory rate 20, temp 97.5 F, and SpO2 of 98% on room air. Labs completed and reviewed. CBC showing macrocytosis with MCV of 107.4. BMP showing mild hyperchloremia with chloride of 110 otherwise normal findings. Blood glucose 99. Liver profile unremarkable with exception of hypoalbuminemia with albumin of 3.4. ESR was elevated at 22 and CRP is pending. Influenza A, influenza B, RSV, and COVID PCR were negative. Group A strep PCR was also negative. CT soft tissue neck with contrast showing enlarged left neck lymph nodes measuring 18.5 mm, 17.4 mm, and 10.5 mm reported to be suspicious for neoplasm, possibly lymphoma, recommending aspiration or biopsy. Patient admitted under services with consultation to ENT and hematology. Review of systems: Pertinent positives and negatives as discussed in HPI, a complete review of systems was performed and all other systems are negative. Physical exam: Vital signs reviewed and stable. General: Nontoxic, no distress and appears stated age. Derm: Skin warm and dry, normal coloration for ethnicity. Head: Atraumatic, normocephalic and symmetric. Patient with limited range of motion of neck secondary to reports of pain upon attempting to turn towards left. Patient with palpable lymphadenopathy left lateral neck. Eyes: EOM's intact, no lid lag, and anicteric sclera Mouth: no lip lesions, mucus membranes moist. Poor dentition. Cardiovascular: regular rate and rhythm with normal S1S2, no murmur, positive posterior tibial pulses bilaterally, and cap refill < 2 seconds. Lungs: Respirations even, regular, and unlabored on room air. Lungs CTA bilaterally, no rhonchi, no rales, no wheezing, and no accessory muscle usage. Abdominal: soft, nontender to palpation, no guarding, no appreciable organome an Ext: ROM intact. No gross muscle atrophy, no edema, no contractures Neuro: Aphasia present, face symmetrical and CN II-XII grossly intact with no other noted focal neuro deficits Psych: Alert and oriented to person, place, time, and situation. Appropriate and pleasant affect. Assessment and Plan of Care: Neck pain and swelling Lymphadenopathy left lateral neck -CT soft tissue neck with contrast showing enlarged left neck lymph nodes measuring 18.5 mm, 17.4 mm, and 10.5 mm reported to be suspicious for neoplasm, possibly lymphoma, recommending aspiration or biopsy. -Discussed with CT radiology staff requesting CT read to rule out dental abscess. -Hematology consulted and discussed case in detail with hematology LANDSCAPING SUPERVISOR. -ENT consulted, appreciate recommendations. -Aspiration precautions placed. -Continue symptomatic care and pain management with Tylenol 650 mg every 6 hours as needed for mild pain, Toradol 15 mg IVP every 6 hours as needed for moderate pain, and morphine 4 mg IVP as needed for severe pain. -Follow-up on CRP results once available. Nicotine use -Patient reports occasional nicotine use, but denies need for nicotine patch at this time. History of CVA with residual aphasia -Patient is no longer on aspirin or atorvastatin, states does not have a PCP. -Will start patient on aspirin 81 mg daily and atorvastatin 40 mg daily. -Patient will be set up with appointment at residency clinic on discharge to establish care with local PCP. Data and imaging reviewed: As stated above in HPI. CODE STATUS: Full code DVT prophylaxis: Lovenox Discussed with: Patient, RN, ED provider, and hematology LANDSCAPING SUPERVISOR. Anticipated discharge date: Pending clinical course Anticipated discharge place: Home Patient was seen independently by Nurse Practitioner. This document was prepared using [employer] dictation software. Please allow for errors in application specialist while rare they do occur. Nabeel Adan NP rendered care for this patient independently, reviewed the findings and plan as documented in the note above and agree with plan. I did not physically speak with or examine the patient on this date. Past Medical History Past Medical History: Asthma, CVA/TIA History of Any Multi-Drug Resistant Organisms: None Reported Past Surgical History: Appendectomy Additional Past Surgical History / Comment(s): Abd Past Psychological History: No Psychological Hx Reported Smoking Status: Unknown if ever smoked Past Alcohol Use History: Occasional Past Drug Use History: None Reported Medications and Allergies Home Medications Medication Instructions Recorded Confirmed Type No Known Home Medications 12/18/23 12/18/23 History Allergies Allergy/AdvReac Type Severity Reaction Status Date / Time Penicillins Allergy Unknown Unknown Verified 12/18/23 15:39 Childhood Sulfa (Sulfonamide Allergy Unknown Unknown Verified 12/18/23 15:39 Antibiotics) venom-honey bee Allergy Anaphylaxis Verified 12/18/23 15:39 codeine AdvReac Vomiting Verified 12/18/23 15:39 Physical Exam Vitals: Vital Signs Temp Pulse Resp BP Pulse Ox 12/18/23 12:10 97.7 F 56 L 18 188/85 98 12/18/23 10:40 97.5 F L 69 20 182/97 98 Intake and Output 12/17/23 12/18/23 12/18/23 22:59 06:59 14:59 Other: Weight 67.585 kg Results CBC & Chem 7: 12/18/23 11:07 12/18/23 11:44 Labs: Abnormal Lab Results - Last 24 Hours (Table) 12/18/23 12/18/23 Range/Units 11:07 11:44 RBC 3.85 L (4.30-5.90) m/uL MCV 107.4 H (80.0-100.0) fL MCH 35.2 H (25.0-35.0) pg Macrocytosis Marked A Sodium 136 L (137-145) mmol/L Chloride 110 H (98-107) mmol/L Total Protein 5.6 L (6.3-8.2) g/dL Albumin 3.4 L (3.5-5.0) g/dL
[2023-12-18] MEDS ORDERED: PROCHLORPERAZINE INJ 10 MG/2 ML VIAL IVP PRN (15:16)
[2023-12-18 15:30] LABS: Erythrocyte Sedimentation Rate 22 mm/Hr (0-20)
[2023-12-18 20:43] LABS: C Reactive Protein <0.30 mg/dL (0.00-0.80)
[2023-12-19] MEDS: KETOROLAC 15 MG/ML 1 ML VIAL IVP PRN (00:50)
[2023-12-19] MEDS: ASPIRIN 81 MG PO SCH (08:39)
[2023-12-19] MEDS: ENOXAPARIN 40 MG/0.4 ML SYRINGE SQ SCH (08:40)
[2023-12-19] MEDS: ATORVASTATIN 40 MG TAB PO SCH (08:40)
[2023-12-19 09:32] LABS: ALT 14 U/L (10-49); AST 13 U/L (14-35); Albumin 3.7 g/dL (3.8-4.9); Albumin/Globulin Ratio 1.95 Ratio (1.60-3.17); Alkaline Phosphatase 85 U/L (41-126); BUN/Creat Ratio 18.33 Ratio (12.00-20.00); Blood Urea Nitrogen 16.5 mg/dL (9.0-27.0); Calcium 8.5 mg/dL (8.7-10.3); Carbon Dioxide 23.8 mmol/L (21.6-31.8); Chloride 110 mmol/L (96-109); Globulin 1.9 g/dL (1.6-3.3); Glucose 104 mg/dL (70-110); Magnesium 2.1 mg/dL (1.5-2.4); Potassium 4.7 mmol/L (3.5-5.5); Sodium 141 mmol/L (135-145); Total Bilirubin 0.2 mg/dL (0.3-1.2); Total Protein 5.6 g/dL (6.2-8.2)
[2023-12-19 09:40] LABS: HCT 36.2 % (39.6-50.0); MCH 35.5 pg (27.0-32.0); MCHC 33.1 g/dL (32.0-37.0); MCV 107.1 FL (80.0-97.0); Mean Platelet Volume 10.7 FL (9.5-12.2); NRBC Per 100 WBC 0 X 10*3/uL (0.00-0.01); Platelet Count 274 X 10*3/uL (140-440); RBC 3.38 X 10*6/uL (4.40-5.60)
[2023-12-19 12:15] LABS: LDH 169 U/L (120-246)
--- NOTE | 2023-12-19 13:38 | P.PN ---
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 He presented to the emergency department with a chief complaint of left lateral neck pain and swelling. Patient reports he awoke this morning and noticed that he had a stiff neck. Patient reports he began rubbing his neck and noted he had painful swelling on the left side. 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 Patient denies having any fevers, chills, diaphoresis, recent infection or exposure to known ill contact, he denies having any nasal congestion or drainage, dysphagia or sore throat, chest pain, palpitations, shortness of breath, cough, nausea, or vomiting. He does report that his neck feels stiff and is painful upon palpation of the swollen area and if he tries to turn his head to the left. He reports the pain and swelling began today and was first noticed upon awakening with a stiff neck. He denies any previous issues of neck swelling and denies having any numbness/tingling/weakness in his extremities. Upon arrival to our facility, patient underwent evaluation in the emergency department. Vital signs upon arrival show blood pressure 182/97, heart rate 69, respiratory rate 20, temp 97.5 F, and SpO2 of 98% on room air. Labs completed and reviewed. CBC showing macrocytosis with MCV of 107.4. BMP showing mild hyperchloremia with chloride of 110 otherwise normal findings. Blood glucose 99. Liver profile unremarkable with exception of hypoalbuminemia with albumin of 3.4. ESR was elevated at 22 and CRP is pending. Influenza A, influenza B, RSV, and COVID PCR were negative. Group A strep PCR was also negative. CT soft tissue neck with contrast showing enlarged left neck lymph nodes measuring 18.5 mm, 17.4 mm, and 10.5 mm reported to be suspicious for neoplasm, possibly lymphoma, recommending aspiration or biopsy. Patient admitted under services with consultation to ENT and hematology. Physical exam: Vital signs reviewed and stable. General: Nontoxic, no distress and appears stated age. Derm: Skin warm and dry, normal coloration for ethnicity. Head: Atraumatic, normocephalic and symmetric. Patient with limited range of motion of neck secondary to reports of pain upon attempting to turn towards left. Patient with palpable lymphadenopathy left lateral neck. Eyes: EOM's intact, no lid lag, and anicteric sclera Mouth: no lip lesions, mucus membranes moist. Poor dentition. Cardiovascular: regular rate and rhythm with normal S1S2, no murmur, positive posterior tibial pulses bilaterally, and cap refill < 2 seconds. Lungs: Respirations even, regular, and unlabored on room air. Lungs CTA bilaterally, no rhonchi, no rales, no wheezing, and no accessory muscle usage. Abdominal: soft, nontender to palpation, no guarding, no appreciable organomegaly Ext: ROM intact. No gross muscle atrophy, no edema, no contractures Neuro: Aphasia present, face symmetrical and CN II-XII grossly intact with no other noted focal neuro deficits Psych: Alert and oriented to person, place, time, and situation. Appropriate and pleasant affect. Assessment and Plan of Care: Neck pain and swelling Lymphadenopathy left lateral neck -CT soft tissue neck with contrast showing enlarged left neck lymph nodes measuring 18.5 mm, 17.4 mm, and 10.5 mm reported to be suspicious for neoplasm, possibly lymphoma, recommending aspiration or biopsy. -Hematology consulted and discussed case in detail with hematology ROVING HAND imm ediately will place consult to interventional radiology for biopsy of lymph node. -ENT consulted, appreciate recommendations. -Aspiration precautions to be maintained -Continue symptomatic care and pain management with Tylenol 650 mg every 6 hours as needed for mild pain, Toradol 15 mg IVP every 6 hours as needed for moderate pain, and morphine 4 mg IVP as needed for severe pain. -ESR elevated at 22 and CRP normal at less than 0.30. LDH also normal findings at 169. Nicotine use -Patient reports occasional nicotine use, but denies need for nicotine patch at this time. History of CVA with residual aphasia -Patient is no longer on aspirin or atorvastatin, states does not have a PCP. -Will start patient on aspirin 81 mg daily and atorvastatin 40 mg daily. -Patient will be set up with appointment at residency clinic on discharge to establish care with local PCP. 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 Data and imaging reviewed: Labs reviewed. ESR elevated at 22 and CRP normal at less than 0.30. LDH also normal findings at 169. CBC showing macrocytic anemia with hemoglobin of 12.0 and MCV of 107.1. BMP showing mild hyperchloremia with chloride of 110 otherwise normal findings. Blood glucose 104. Magnesium 2.1. Liver profile showing no significant abnormalities. TSH normal findings at 1.180. Vital signs reviewed. Blood pressure 147/74, heart rate 61, respiratory rate 20, temp 97.8 F, and SpO2 of 97% on room air. CODE STATUS: Full code DVT prophylaxis: Lovenox Discussed with: Patient, RN, ED provider, and hematology ROVING HAND. Anticipated discharge date: Pending clinical course Anticipated discharge place: Home Patient was seen independently by Nurse Practitioner. This document was prepared using [employer] dictation software. Please allow for errors in mixing machine attendant while rare they do occur. Nabeel Adan NP rendered care for this patient independently, reviewed the fin dings and plan as documented in the note above and agree with plan. I did not physically speak with or examine the patient on this date. Objective - Vital Signs Vital signs: Vital Signs Temp 97.8 F 12/19/23 07:26 Pulse 61 12/19/23 07:26 Resp 20 12/19/23 07:26 BP 147/74 12/19/23 07:26 Pulse Ox 97 12/19/23 07:26 FiO2 Intake & Output 12/18/23 12/19/23 12/19/23 18:59 06:59 18:59 Output Total 650 Balance -650 Weight 67.585 kg 67.585 kg Output: Urine 650 Other: # Voids 1 - Labs CBC & Chem 7: 12/19/23 05:32 12/19/23 05:32 Labs: Abnormal Lab Results - Last 24 Hours (Table) 12/18/23 12/18/23 Range/Units 11: 11:44 RBC 3.85 L (4.30-5.90) m/uL MCV 107.4 H (80.0-100.0) fL MCH 35.2 H (25.0-35.0) pg Macrocytosis Marked A ESR 22 H (0-20) mm/Hr Sodium 136 L (137-145) mmol/L Chloride 110 H (98-107) mmol/L Total Protein 5.6 L (6.3-8.2) g/dL Albumin 3.4 L (3.5-5.0) g/dL
--- NOTE | 2023-12-19 17:15 | P.CONS ---
History of Present Illness - Reason for Consult Consult date: 12/19/23 abnormal lymphadenopathy Requesting physician: Jahaira Laureano - Chief Complaint neck pain - History of Present Illness Patient is a 58-year-old male who presented to emergency room with left-sided neck pain and neck mass. Patient reports he woke up with acute neck pain and coworkers had noted mass on his neck at which time he presented to the emergency room for further evaluation. Patient has a history of nicotine dependence. Denies alcohol use. Denies personal history of cancer, unintentional weight loss and night sweats. Upon admission CT soft tissue neck revealed enlarged lymph left neck lymph nodes measuring 18.5 mm, 17.4 mm and 10.5 mm. WBC 7.5, hemoglobin 12.0, MCV 107.1, platelets 274,000 creatinine 0.9, GFR 99. Bilirubin and LFTs WNL. Viral panel and strep test negative. Patient is afebrile, HDS. Review of Systems 10 point ROS is negative except as stated in the HPI Past Medical History Past Medical History: Asthma, CVA/TIA Additional Past Medical History / Comment(s): nerve damage History of Any Multi-Drug Resistant Organisms: None Reported Past Surgical History: Appendectomy Additional Past Surgical History / Comment(s): Abdominal surgery patient cannot recall. Past Anesthesia/Blood Transfusion Reactions: No Reported Reaction Past Psychological History: No Psychological Hx Reported Smoking Status: Current some day smoker Past Alcohol Use History: Occasional Additional Past Alcohol Use History / Comment(s): patient states he smokes "here and there" Past Drug Use History: None Reported Medications and Allergies Home Medications Medication Instructions Recorded Confirmed Type No Known Home Medications 12/18/23 12/18/23 History Allergies Allergy/AdvReac Type Severity Reaction Status Date / Time Penicillins Allergy Unknown Unknown Verified 12/18/23 15:39 Childhood Sulfa (Sulfonamide Allergy Unknown Unknown Verified 12/18/23 15:39 Antibiotics) venom-honey bee Allergy Anaphylaxis Verified 12/18/23 15:39 codeine AdvReac Vomiting Verified 12/18/23 15:39 Physical Exam Vitals: Vital Signs Temp Pulse Pulse Resp BP BP BP 12/19/23 07:26 97.8 F 61 20 147/74 12/19/23 01:48 97.7 F 77 20 133/71 12/18/23 23:23 97.7 F 61 15 121/78 12/18/23 22:41 71 16 131/60 12/18/23 18:12 97.7 F 64 22 132/64 12/18/23 16:32 65 14 138/82 12/18/23 15:38 98.0 F 65 20 158/78 Pulse Ox 12/19/23 07:26 97 12/19/23 01:48 96 12/18/23 23:23 99 12/18/23 22:41 98 12/18/23 18:12 98 12/18/23 16:32 99 12/18/23 15:38 99 Intake and Output 12/18/23 12/19/23 12/19/23 22:59 06:59 14:59 Output Total 650 Balance -650 Output: Urine 650 Other: # Voids 1 Weight 67.585 kg - Constitutional General appearance: average body habitus, no acute distress - EENT poor dentition Eyes: anicteric sclerae, EOMI - Neck left sided cervical tender lymphadenopathy Neck: lymphadenopathy - Respiratory Respiratory: bilateral: CTA - Cardiovascular Rhythm: regular - Gastrointestinal General gastrointestinal: soft, no tenderness - Integumentary Integumentary: no cyanotic, no jaundiced - Musculoskeletal Musculoskeletal: strength equal bilaterally - Psychiatric Psychiatric: A&O x's 3 Results CBC & Chem 7: 12/19/23 05:32 12/19/23 05:32 Labs: Abnormal Lab Results - Last 24 Hours (Table) 12/18/23 12/18/23 12/19/23 Range/Units 11:07 11:44 05:32 RBC 3.38 L (4.40-5.60) X 10*6/uL Hgb 12.0 L (13.0-17.0) g/dL Hct 36.2 L (39.6-50.0) % MCV 107.1 H (80.0-97.0) FL MCH 35.5 H (27.0-32.0) pg RDW 15.0 H (11.5-14.5) % ESR 22 H (0-20) mm/Hr Sodium 136 L (137-145) mmol/L Chloride 110 H (98-107) mmol/L Calcium (8.7-10.3) mg/dL Total Bilirubin (0.3-1.2) mg/dL AST (14-35) U/L Total Protein 5.6 L (6.3-8.2) g/dL Albumin 3.4 L (3.5-5.0) g/dL 12/19/23 Range/Units 05:32 RBC (4.40-5.60) X 10*6/uL Hgb (13.0-17.0) g/dL Hct (39.6-50.0) % MCV (80.0-97.0) FL MCH (27.0-32.0) pg RDW (11.5-14.5) % ESR (0-20) mm/Hr Sodium (137-145) mmol/L Chloride 110 H (98-107) mmol/L Calcium 8.5 L (8.7-10.3) mg/dL Total Bilirubin 0.2 L (0.3-1.2) mg/dL AST 13 L (14-35) U/L Total Protein 5.6 L (6.3-8.2) g/dL Albumin 3.7 L (3.5-5.0) g/dL Comments: CT neck reviewed Assessment and Plan (1) Lymphadenopathy Current Visit: Yes Status: Acute Priority: High Code(s): R59.1 - GENERALIZED ENLARGED LYMPH NODES SNOMED Code(s): 68292052 (2) Neck mass Current Visit: Yes Status: Acute Priority: High Code(s): R22.1 - LOCALIZED SWELLING, MASS AND LUMP, NECK SNOMED Code(s): 309417522 Plan: Cervical lymphadenopathy: Presented to emergency room with left-sided neck pain and neck mass. Patient reports he woke up with acute neck pain and coworkers had noted mass on his neck at which time he presented to the emergency room for further evaluation. History of nicotine dependence. Denies alcohol use. Denies personal history of cancer, unintentional weight loss and night sweats. -Viral panel and strep test negative -Upon admission CT soft tissue neck revealed enlarged lymph left neck lymph nodes measuring 18.5 mm, 17.4 mm and 10.5 mm. -Unsure etiology of abnormal lymphadenopathy, reactive vs malignancy within differential. Patient does have rather poor dentition -LDH ordered -Consult placed to IR for core biopsy of cervical lymph node. Spoke with IR dept, biopsy will be delayed till friday as pt received lovenox this morning Macrocytic anemia: -CBC showing, WBC 7.5, hemoglobin 12.0, MCV 107.1, platelets 274,000. Creatinine 0.9, GFR 99. Bilirubin and LFTs WNL. -Anemia labs and TSH ordered -Continue to monitor CBC Doctor attests: I performed a history and physical examination of this patient, developed impression and plan of care. Discussed with dictator. I agree with dictators note, documented as a scribe.
[2023-12-19 20:14] LABS: % Iron Saturation 37.59 (15.00-50.00); Iron 100 UG/DL (65-175); Total Iron Binding Capacity 266 UG/DL (228-460)
[2023-12-20 01:33] VITALS: RESP 17
[2023-12-20] MEDS: MORPHINE SULFATE 4 MG/ML SYRINGE IV PRN (09:13)
--- NOTE | 2023-12-20 09:47 | CONS ---
CONSULTATION REASON FOR CONSULTATION: Cervical lymphadenopathy. HISTORY: This is a 58-year-old white male, who presented to the ER 2 days ago for acute onset of cervical lymphadenopathy on the left. He was at home and noticed palpably the left neck was swollen. He went to work and his coworkers noticed this also. He has had no fever or chills and denies sore throat, dysphagia, or hoarseness. The patient came into the ER. He had a CT of the neck, which showed 3 cervical nodes on the left, 1.8, 1.7, and 1 cm. They did not appear to show any other abnormalities in the soft tissues. The patient has not had symptoms like this in the past. PAST MEDICAL HISTORY: Prior for asthma and CVA. PAST SURGICAL HISTORY: Appendectomy. SOCIAL HISTORY: He does smoke, past alcohol history. REVIEW OF SYSTEMS: A 10-point review of systems negative other than as above in the HPI. MEDICATIONS: At home, none. ALLERGIES: To penicillin, sulfa, and codeine. PHYSICAL EXAMINATION: GENERAL/VITAL SIGNS: The patient has been afebrile with stable vital signs, otherwise. HEENT: Head is normocephalic and atraumatic. Ears show canals were clear. Tympanic membranes unremarkable and mobile. Nose shows no drainage or obstruction. Oropharynx shows tonsils +2 without erythema or exudate. Oral cavity shows missing teeth. No obvious dental infection. NECK: Supple. There are 2 cervical lymph nodes palpable in the upper jugular chain, approximately 1.5 cm to 2 cm. These are soft, mildly tender. No overlying erythema or fluctuance. ASSESSMENT: Left cervical lymphadenopathy/lymphadenitis. PLAN: Recommended fine-needle aspiration and the patient is agreeable. The indications, alternatives, and potential benefits and risks of the procedure reviewed with the patient today with risks including, but not inclusive of the risk of local anesthesia, bleeding, infection, scarring, nondiagnostic study. The patient was agreeable to this. This was performed at bedside. MMODL / IJN: [id number] /
--- NOTE | 2023-12-20 09:50 | OP ---
OPERATIVE REPORT DATE OF SERVICE : PREOPERATIVE DIAGNOSIS: Left cervical lymphadenopathy. POSTOPERATIVE DIAGNOSIS: Left cervical lymphadenopathy. PROCEDURES: Fine-needle aspiration and left cervical lymph node. ANESTHESIA: Local. ESTIMATED BLOOD LOSS: None. COMPLICATIONS: None. DESCRIPTION OF PROCEDURE: The patient was in this hospital bed in the sitting position. Informed consent was obtained. The patient was prepped and draped in the usual aseptic fashion. 1% lidocaine with 1:100,000 epinephrine was infused subcutaneously in the field block fashion. A total of 1 mL of local anesthesia was utilized. This left for work for 7 minutes for vasoconstrictive effect. Fine-needle aspiration was then performed with 2 separate passes. The initial pass was for cytology and placed in CytoLyt. The second pass obtained approximately 1.5 mL of purulence. This was therefore also sent for culture. The patient was tolerated this well with no complications. Sterile Band-Aid was placed. ASSESSMENT: Left cervical lymphadenopathy/lymphadenitis. PLAN: The patient should be able to be discharged from the cervical lymph node standpoint. We would suspect this may have odontogenic etiology and therefore, we would place on antibiotics, particularly clindamycin due to his penicillin allergy. He likely could be discharged on this. We would recommend he follow up in my office later next week for followup on the needle aspiration and cervical lymphadenitis. He should also follow up with his dentist and if he does not have one, he should consult with a dentist or oral surgeon. If there are any questions or concerns, please free to contact me. NALDO / JOSSY: [id number] /
[2023-12-20 12:58] VITALS: BP 156/79; PULSE 49; TEMP 97.6
--- NOTE | 2023-12-20 14:23 | P.DS ---
Providers Date of admission: 12/18/23 12:25 Expected date of discharge: 12/20/23 Attending physician: Naeem Garcia Consults: 12/18/23 12:34 Consult Physician Routine Consulting Provider: Kelly Yu Consult Reason/Comments: enlargement LNs, r/o lymphoma Do you want consulting provider notified?: Yes, Notify in am Consult Physician Routine Consulting Provider: Yehuda Mathis Consult Reason/Comments: left neck mass, enlargement LNs Do you want consulting provider notified?: Yes, Notify in am Primary care physician: Stated None Hospital Course: Discharge Diagnosis: Lymphadenopathy left lateral neck. CT soft tissue neck with contrast showing enlarged left neck lymph nodes measuring 18.5 mm, 17.4 mm, and 10.5 mm reported to be suspicious for neoplasm, possibly lymphoma, recommending aspiration or biopsy. Patient was evaluated by hematology and ENT. He underwent fine-needle aspiration of left cervical lymph node completed by Dr. Pitts, ENT physician. Patient is medically stable and free from any other complaints. Per ENT recommendations patient being discharged home on clindamycin 300 mg daily every 8 hours x 10 days. Patient to follow-up with residency clinic next week and with ENT in 1 week. Neck pain and swelling, secondary to above. Nicotine use History of CVA with residual aphasia. Patient was no longer on aspirin or atorvastatin, stating does not have a PCP. He was started on aspirin 81 mg daily and atorvastatin 40 mg daily and prescription was sent to pharmacy. Patient instructed he will need to call first thing Friday morning to schedule a ppointment at residency clinic to establish care with local PCP. 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 He presented to the emergency department with a chief complaint of left lateral neck pain and swelling. Patient reports he awoke this morning and noticed that he had a stiff neck. Patient reports he began rubbing his neck and noted he had painful swelling on the left side. 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 Patient denies having any fevers, chills, diaphoresis, recent infection or exposure to known ill contact, he denies having any nasal congestion or drainage, dysphagia or sore throat, chest pain, palpitations, shortness of breath, cough, nausea, or vomiting. He does report that his neck feels stiff and is painful upon palpation of the swollen area and if he tries to turn his head to the left. He reports the pain and swelling began today and was first noticed upon awakening with a stiff neck. He denies any previous issues of neck swelling and denies having any numbness/tingling/weakness in his extremities. Upon arrival to our facility, patient underwent evaluation in the emergency department. Vital signs upon arrival show blood pressure 182/97, heart rate 69, respiratory rate 20, temp 97.5 F, and SpO2 of 98% on room air. Labs completed and reviewed. CBC showing macrocytosis with MCV of 107.4. BMP showing mild hyperchloremia with chloride of 110 otherwise normal findings. Blood glucose 99. Liver profile unremarkable with exception of hypoalbuminemia with albumin of 3.4. ESR was elevated at 22 and CRP is pending. Influenza A, influenza B, RSV, and COVID PCR were negative. Group A strep PCR was also negative. CT soft tissue neck with contrast showing enlarged left neck lymph nodes measuring 18.5 mm, 17.4 mm, and 10.5 mm reported to be suspicious for neoplasm, possibly lymphoma, recommending aspiration or biopsy. Patient admitted under services with consultation to ENT and hematology. Patient was evaluated by hematology and ENT. He underwent fine-needle aspiration of left cervical lymph node completed by Dr. Pitts, ENT physician. Patient is medically stable and free from any other complaints. Per ENT recommendations patient being discharged home on clindamycin 300 mg daily every 8 hours x 10 days. Patient to follow-up with residency clinic next week and with ENT in 1 week. Physical exam: Vital signs reviewed and stable. General: Nontoxic, no distress and appears stated age. Derm: Skin warm and dry, normal coloration for ethnicity. Head: Atraumatic, normocephalic and symmetric. Patient laid in place left lateral neck status post fine-needle drainage of lymph node. Eyes: EOM's intact, no lid lag, and anicteric sclera Mouth: no lip lesions, mucus membranes moist. Poor dentition. Cardiovascular: regular rate and rhythm with normal S1S2, no murmur, positive posterior tibial pulses bilaterally, and cap refill < 2 seconds. Lungs: Respirations even, regular, and unlabored on room air. Lungs CTA bilaterally, no rhonchi, no rales, no wheezing, and no accessory muscle usage. Abdominal: soft, nontender to palpation, no guarding, no appreciable organomegaly Ext: ROM intact. No gross muscle atrophy, no edema, no contractures Neuro: Aphasia present, face symmetrical and CN II-XII grossly intact with no other noted focal neuro deficits Psych: Alert and oriented to person, place, time, and situation. Appropriate and pleasant affect. A total of 35 minutes of time were spent preparing this complex discharge summary. Pt was discharged on 12/20/2023 at 2:17 PM. Patient was seen independently by Nurse Practitioner. This document was prepared using [employer] dictation software. Please allow for errors in psychiatric social worker supervisor while rare they do occur. Nabeel Adan NP rendered care for this patient independently, reviewed the findings and plan as documented in the note above. I did not physically speak with or examine the patient on this date. Patient Condition at Discharge: Stable Plan - Discharge Summary Discharge Rx Participant: Yes New Discharge Prescriptions: New Clindamycin [Cleocin] 300 mg PO TID 10 Days #30 cap Aspirin 81 mg PO DAILY 30 Days #30 tab Atorvastatin [Lipitor] 40 mg PO DAILY 30 Days #30 tab Discharge Medication List Aspirin 81 mg PO DAILY 30 Days #30 tab 12/20/23 [Rx] Atorvastatin [Lipitor] 40 mg PO DAILY 30 Days #30 tab 12/20/23 [Rx] Clindamycin [Cleocin] 300 mg PO TID 10 Days #30 cap 12/20/23 [Rx] Follow up Appointment(s)/Referral(s): Kelly Yu MD [STAFF PHYSICIAN] - 2 Weeks Acosta Bautista MD [REFERRING] - 1-2 Days (Pt will need to call residency clinic and schedule follow up appointment first thing Friday morning. ) Yehuda Mathis MD [STAFF PHYSICIAN] - 1 Week Patient Instructions/Handouts: Lymphadenopathy (GEN), Lymph Node Biopsy (DC) Activity/Diet/Wound Care/Special Instructions: Activity: As tolerated. Take breaks as needed. Diet: Heart healthy and carb consistent diet. Avoid salts, or foods with hidden salts such as canned or boxed foods and frozen dinners. Extra salt makes your heart work harder and traps the fluid in your body for longer. Special Instructions: Take all of your medications as directed and remember to keep all of your doctor's appointments and follow-up as needed. You will need to call first thing Friday morning to schedule appointment at residency clinic to establish care with local PCP. Thank you for allowing us to participate in your care, it was truly a pleasure having you for our patient!!! Discharge Disposition: HOME SELF-CARE
[2023-12-20] MEDS: CLINDAMYCIN 150 MG CAP PO SCH (17:04)
[2023-12-23 08:37] LABS: Methylmalonic Acid 0.4 umol/L (<0.40)
== END 2023-12-20 17:19 | disposition home or self-care (01) ==
LOC: EC 10:13 → 5NMEDONC 12:25
PROVIDERS: ADMIT Student in an Organized Health Care Education/Training Program; ATTEND Student in an Organized Health Care Education/Training Program
DX: I88.9 Nonspecific lymphadenitis, unspecified (principal); D75.89 Other specified diseases of blood and blood-forming organs; E87.8 Other disorders of electrolyte and fluid balance, not elsewhere classified; E88.09 Other disorders of plasma-protein metabolism, not elsewhere classified; H91.93 Unspecified hearing loss, bilateral; I69.320 Aphasia following cerebral infarction; F17.200 Nicotine dependence, unspecified, uncomplicated; J45.909 Unspecified asthma, uncomplicated; Z79.899 Other long term (current) drug therapy; Z88.0 Allergy status to penicillin; Z88.5 Allergy status to narcotic agent; Z88.2 Allergy status to sulfonamides
CPT/HCPCS: 10021; 96376 ×2; 96372 ×2; 96375; 96374; 99284; 36415; 87651; 83921; 88305; 82747; 88173; 80053 ×2; 85652; 84443; 82607; 82728; 83540; 83550; 83615; 83735; 85025; 85027; 86140; 87070; 87205; 87636; 70491; G0378 ×4; J2270 ×2; J1650 ×2; J1885 ×2; Q9967

== ENCOUNTER → 2024-02-05 | Outpatient (CLI) | payer MEDICARE, OTHER ==
--- NOTE | 2024-02-05 18:34 | PE ---
EXAMINATION TYPE: PET CT fusion skull to thigh DATE OF EXAM: 02/05/2024 CLINICAL INDICATION:Male, 58 years old with history of C76.0 HEAD AND NECK CANCER; TECHNIQUE: Following the intravenous administration of 12.27 mCi of F-18 FDG, whole body images are performed from the skull base to the midthigh. Images are reviewed on the computer in the coronal, axial, and sagittal planes. Reconstructed rotating images are created on independent workstation and reviewed on the computer. A non-contrast CT is performed in conjunction with the PET scan. Glucose level 90 mg/dL CT DLP: 421.06 mGycm, Automated exposure control for dose reduction was used. COMPARISON: CT 12/18/2023, 12/01/2023, PET/CT None, MRI: None FINDINGS: Mediastinal SUV mean is 1.9. Hepatic parenchyma SUV mean is 2.3. SKULL BASE AND NECK: Enlarged left jugular lymph nodes anterior to the left lateral mastoid muscle measuring up to 2.6 cm with a maximum SUV of 8.7. There is patchy more peripheral radiotracer uptake identified within these lymph nodes corresponding to necrotic appearance on prior CT. Symmetrical radiotracer uptake within the regions of the bilateral palatine tonsils. The right demonstrates a maximum SUV of 7.7. The left demonstrates a maximum SUV of 9.0. CHEST, MEDIASTINUM, AND HILAR REGION: No suspicious radiotracer activity. ABDOMEN AND PELVIS: No suspicious radiotracer activity. MUSCULOSKELETAL STRUCTURES: No suspicious radiotracer activity. OTHER CT: Centrilobular emphysematous changes. Left hilar calcified granuloma. Cholelithiasis. IMPRESSION: 1. FDG avid left jugular lymphadenopathy concerning for malignancy. Tissue sampling is recommended. No other suspicious FDG activity within the chest, abdomen or pelvis. 2. Symmetric uptake within the bilateral palatine tonsils likely representing inflammation. [facility], , 02/05/2024 6:32 PM
== END | disposition home or self-care (01) ==
LOC: RADPETMAIN 12:33
PROVIDERS: ATTEND Otolaryngology
DX: C76.0 Malignant neoplasm of head, face and neck (principal); R59.1 Generalized enlarged lymph nodes
CPT/HCPCS: 78815; A9552

== ENCOUNTER 2024-02-16 12:01 | Day surgery (SDC) | payer MEDICARE, OTHER ==
[2024-02-16] MEDS: ALPRAZolam 0.5 MG TAB PO STA (13:58)
[2024-02-16 14:08] VITALS: RESP 18; TEMP 97.7
[2024-02-16 16:31] VITALS: BP 174/79; PULSE 64
--- NOTE | 2024-02-17 08:53 | US ---
EXAMINATION TYPE: US biopsy lymph node DATE OF EXAM: 02/16/2024 3:48 PM COMPARISON: Pet/CT 02/05/2024. CLINICAL INDICATION:Male, 58 years old with history of R59.0 LOCALIZED ENLARGED LYMPH NODES; left nec k lymphadenopathy., ATTENDING: Dr. Damon Haney PROCEDURE: Informed consent was obtained. The risks and benefits of the procedure were discussed with the patien t. The site was marked. Timeout procedure was performed Ultrasound imaging demonstrates complex left cystic lesion in the neck. The patient was prepped, draped in the usual sterile fashion, and locally anesthetized with 1% lidoca ine. 3 x 18-gauge core needle biopsies were obtained. Samples were sent to the pathology department for further analysis. Patient tolerated the procedure without incident and was sent home in stable c ondition. IMPRESSION: Successful ultrasound guided core biopsy [facility], , 02/17/2024 8:50 AM
== END 2024-02-16 16:00 | disposition home or self-care (01) ==
LOC: RADPROMAIN 12:01
PROVIDERS: ATTEND Internal Medicine
DX: C44.42 Squamous cell carcinoma of skin of scalp and neck (principal)
CPT/HCPCS: 38505; 76942; 88305; 88341; 88342

== ENCOUNTER 2024-02-18 13:44 | Emergency (ER) | payer MEDICARE, OTHER ==
[2024-02-18 13:57] VITALS: RESP 18
--- NOTE | 2024-02-18 14:22 | ED ---
Recheck HPI - General Source: patient, family, RN notes reviewed Mode of arrival: EMS Limitations: language barrier <Ivette Pedro - Last Filed: 02/18/24 14:20> <Carlo Suarez - Last Filed: 03/02/24 04:12> - General Chief Complaint: Recheck/Abnormal Lab/Rx Stated Complaint: High blood pressure Time Seen by Provider: 02/18/24 14:00 - History of Present Illness Initial Comments: Quick Note: This is a 58-year-old male who presents to the emergency department for elevated blood pressure. Patient had a lymph node biopsy yesterday and was told that his blood pressure was elevated. Patient denies a history of elevated blood pressure and does not take any medication for it. He does complain of a throbbing sensation in his head and feeling dizzy, almost like he could pass out. Denies any chest pain or shortness of breath. Patient is deaf but is able to read lips. His sister also helps with translation. (Ivette Pedro) - Related Data Home Medications Medication Instructions Recorded Confirmed Baclofen 5 mg PO DAILY 02/16/24 02/16/24 Previous Rx's Medication Instructions Recorded amLODIPine [Norvasc] 5 mg PO DAILY #30 tab 02/18/24 Allergies Allergy/AdvReac Type Severity Reaction Status Date / Time Penicillins Allergy Unknown Unknown Verified 02/18/24 13:57 Childhood Sulfa (Sulfonamide Allergy Unknown Unknown Verified 02/18/24 13:57 Antibiotics) venom-honey bee Allergy Anaphylaxis Verified 02/18/24 13:57 codeine AdvReac Vomiting Verified 02/18/24 13:57 Review of Systems ROS Other: All systems not noted in ROS Statement are negative. <Ivette Pedro - Last Filed: 02/18/24 14:20> ROS Other: All systems not noted in ROS Statement are negative. <Carlo Suarez - Last Filed: 03/02/24 04:12> ROS Statement: Those systems with pertinent positive or pertinent negative responses have been documented in the HPI. Past Medical History Past Medical History: Asthma, CVA/TIA, Hearing Disorder / Deafness Additional Past Medical History / Comment(s): nerve damage, no deficits from stroke, pt is DEAF. History of Any Multi-Drug Resistant Organisms: None Reported Past Surgical History: Appendectomy Additional Past Surgical History / Comment(s): Abdominal surgery patient cannot recall., neck biopsy Past Anesthesia/Blood Transfusion Reactions: No Reported Reaction Past Psychological History: No Psychological Hx Reported Smoking Status: Current some day smoker Past Alcohol Use History: Occasional Past Drug Use History: None Reported <Ivette Pedro - Last Filed: 02/18/24 14:20> General Exam Limitations: no limitations <Ivette Pedro - Last Filed: 02/18/24 14:20> Limitations: physical limitation (Patient is legally deaf) General appearance: alert, in no apparent distress Head exam: Present: atraumatic, normocephalic Eye exam: Present: normal appearance. Absent: scleral icterus, conjunctival injection Neck exam: Present: tenderness (Mild left lateral neck tenderness at biopsy site.), full ROM. Absent: meningismus Respiratory exam: Present: normal lung sounds bilaterally. Absent: respiratory distress, wheezes, rales, rhonchi, stridor, accessory muscle use Cardiovascular Exam: Present: regular rate, normal rhythm, normal heart sounds. Absent: systolic murmur, diastolic murmur, rubs, gallop GI/Abdominal exam: Present: soft. Absent: tenderness Extremities exam: Present: normal inspection Back exam: Present: normal inspection Neurological exam: Present: alert Skin exam: Present: warm, dry, intact, normal color. Absent: rash <Carlo Suarez - Last Filed: 03/02/24 04:12> - General Exam Comments Initial Comments: Visual Physical Exam Vital signs reviewed General: Well-appearing, nontoxic, no acute distress. Head: Normocephalic, atraumatic Eyes: PERRLA, EOMI ENT: Airway patent Chest: Nonlabored breathing Skin: No visual rash, normal skin tone Neuro: Alert and oriented 3 Musculoskeletal: No gross abnormalities (Ivette Pedro) Course Vital Signs 02/18/24 02/18/24 02/18/24 13:53 16:15 17:09 Temperature 97.6 F Pulse Rate 85 67 68 Respiratory 18 18 18 Rate Blood Pressure 212/79 156/77 198/70 O2 Sat by Pulse 98 98 100 Oximetry 02/18/24 17:31 Temperature 97.9 F Pulse Rate 67 Respiratory 18 Rate Blood Pressure 189/71 O2 Sat by Pulse 100 Oximetry Medical Decision Making <Ivette Pedro - Last Filed: 02/18/24 14:20> - Lab Data Result diagrams: 02/18/24 14:15 02/18/24 14:15 - EKG Data -: EKG Interpreted by Me EKG shows normal: sinus rhythm, axis (Normal), intervals (Normal), QRS complexes (Normal), ST-T waves (Normal) Rate: normal (Rate 71 bpm) <Carlo Suarez - Last Filed: 03/02/24 04:12> - Medical Decision Making I performed the QuickNote portion of this chart. Signed Ivette Pedro PA-C. (Ivette Pedro) The patient had CT scan of the brain that I interpreted as negative for acute bony injury, negative for acute intracranial hemorrhage or mass effect. Was pt. sent in by a medical professional or institution (HERNANDEZ Macedo, GRADUATE TEACHING ASSISTANT, urgent care, hospital, or assisted...) When possible be specific @ -[No] Did you speak to anyone other than the patient for history (EMS, parent, family, police, friend...)? What history was obtained from this source @ -[No] Did you review nursing and triage notes (agree or disagree)? Why? @ -[I reviewed and agree with nursing and triage notes] Were old charts reviewed (outside hosp., previous admission, EMS record, old EKG, old radiological studies, urgent care reports/EKG's, assisted records)? Report findings @ -[No old charts were reviewed] Differential Diagnosis (chest pain, altered mental status, abdominal pain women, abdominal pain men, vaginal bleeding, weakness, fever, dyspnea, syncope, headache, dizziness, GI bleed, back pain, seizure, CVA, palpatations, mental health, musculoskeletal)? @ -[Amphetamine Toxicity Anxiety Disorders Apnea, Sleep Cocaine-Related Cardiomyopathy Heart Failure Hyperthyroidism, Thyroid Storm, and Graves Disease Hypertrophic Cardiomyopathy Myocardial Infarction Phencyclidine Toxicity Primary Aldosteronism Stroke, Hemorrhagic Stroke, Ischemic EKG interpreted by me (3pts min.). @ -[I interpreted as above] X-rays interpreted by me (1pt min.). @ -[None done] CT interpreted by me (1pt min.). @ -[I interpreted as above U/S interpreted by me (1pt. min.). @ -[None done] What testing was considered but not performed or refused? (CT, X-rays, U/S, labs)? Why? @ -[None] What meds were considered but not given or refused? Why? @ -[None] Did you discuss the management of the patient with other professionals (manny montelongo i.e. , PA, GRADUATE TEACHING ASSISTANT, lab, RT, psych nurse, protective services social worker, hr generalist, teacher, nuclear medicine officer, bottle caser)? Give summary @ -[No] Was smoking cessation discussed for >3mins.? @ -[No] Was critical care preformed (if so, how long)? @ -[No] Were there social determinants of health that impacted care today? How? (Homelessness, low income, unemployed, alcoholism, drug addiction, transportation, low edu. Level, literacy, decrease access to med. care, senior care, rehab)? @ -[No] Was there de-escalation of care discussed even if they declined (Discuss DNR or withdrawal of care, Hospice)? DNR status @ -[No] What co-morbidities impacted this encounter? (DM, HTN, Smoking, COPD, CAD, Cancer, CVA, ARF, Chemo, Hep., AIDS, mental health diagnosis, sleep apnea, morbid obesity)? @ -[None] Was patient admitted / discharged? Hospital course, mention meds given and route, prescriptions, significant lab abnormalities, going to OR and other pertinent info. @ -[Patient is 58-year-old man here to have evaluation of hypertension. The patient has had some improvement with medication, feels better and would like to go home. Discussed appropriate further care and follow-up as well as return parameters Undiagnosed new problem with uncertain prognosis? @ -[No] Drug Therapy requiring intensive monitoring for toxicity (Heparin, Nitro, Insulin, Cardizem)? @ -[No] Were any procedures done? @ -[No] Diagnosis/symptom? @ -[Acute hypertension Acute, or Chronic, or Acute on Chronic? @ -[Acute Uncomplicated (without systemic symptoms) or Complicated (systemic symptoms)? @ -[Uncomplicated Side effects of treatment? @ -[No] Exacerbation, Progression, or Severe Exacerbation? @ -[No] Poses a threat to life or bodily function? How? (Chest pain, [place], [place], pneumonia, PE, COPD, DKA, ARF, appy, cholecystitis, CVA, Diverticulitis, Homicidal, Suicidal, threat to staff... and all critical care pts) @ -[Requires further long-term management but at this point risk is low All treatments are based on ideal body weight as in ED triage (Carlo Suarez) - Lab Data Lab Results 02/18/24 02/18/24 02/18/24 Range/Units 14:15 14:15 14:15 WBC 9.8 (3.8-10.6) k/uL RBC 3.59 L (4.30-5.90) m/uL Hgb 12.8 L (13.0-17.5) gm/dL Hct 39.1 (39.0-53.0) % MCV 108.9 H (80.0-100.0) fL MCH 35.7 H (25.0-35.0) pg MCHC 32.8 (31.0-37.0) g/dL RDW 16.0 H (11.5-15.5) % Plt Count 316 (150-450) k/uL MPV 8.0 Neutrophils % 72 % Lymphocytes % 21 % Monocytes % 4 % Eosinophils % 2 % Basophils % 0 % Neutrophils # 7.0 (1.3-7.7) k/uL Lymphocytes # 2.0 (1.0-4.8) k/uL Monocytes # 0.4 (0-1.0) k/uL Eosinophils # 0.1 (0-0.7) k/uL Basophils # 0.0 (0-0.2) k/uL Manual Slide Review Performed Large Platelets Present Polychromasia Present Anisocytosis Slight Macrocytosis Marked A PT 9.7 L (10.0-12.5) sec INR 0.8 (<1.2) APTT 23.4 (22.0-30.0) sec Sodium 141 (137-145) mmol/L Potassium 4.4 (3.5-5.1) mmol/L Chloride 108 H (98-107) mmol/L Carbon Dioxide 28 (22-30) mmol/L Anion Gap 5 mmol/L BUN 12 (9-20) mg/dL Creatinine 0.89 (0.66-1.25) mg/dL Est GFR (CKD-EPI)AfAm >90 (>60 ml/min/1.73 sqM) Est GFR (CKD-EPI)NonAf >90 (>60 ml/min/1.73 sqM) Glucose 139 H (74-99) mg/dL Calcium 8.8 (8.4-10.2) mg/dL Magnesium 2.0 (1.6-2.3) mg/dL Total Bilirubin 0.4 (0.2-1.3) mg/dL AST 28 (17-59) U/L ALT 15 (4-49) U/L Alkaline Phosphatase 71 (38-126) U/L Total Protein 6.2 L (6.3-8.2) g/dL Albumin 4.0 (3.5-5.0) g/dL Disposition <Ivette Pedro - Last Filed: 02/18/24 14:20> Is patient prescribed a controlled substance at d/c from ED?: No <Carlo Suarez - Last Filed: 03/02/24 04:12> Clinical Impression: Hypertension Disposition: HOME SELF-CARE Condition: Fair Instructions (If sedation given, give patient instructions): Hypertension (ED) Prescriptions: amLODIPine [Norvasc] 5 mg PO DAILY #30 tab Referrals: Acosta Bautista MD [Primary Care Provider] - 1-2 days
[2024-02-18 14:39] LABS: Anisocytosis Slight; Basophils % (A) 0 %; Eosinophils # (A) 0.1 k/uL (0-0.7); Eosinophils % (A) 2 %; HCT 39.1 % (39.0-53.0); HGB 12.8 gm/dL (13.0-17.5); Lymphocytes % (A) 21 %; MCH 35.7 pg (25.0-35.0); MCHC 32.8 g/dL (31.0-37.0); MCV 108.9 fL (80.0-100.0); Macrocytosis Marked; Monocytes # (A) 0.4 k/uL (0-1.0); Monocytes % (A) 4 %; Neutrophils % (A) 72 %; Platelet Count 316 k/uL (150-450); RBC 3.59 m/uL (4.30-5.90); WBC 9.8 k/uL (3.8-10.6)
[2024-02-18 14:49] LABS: INR 0.8 (<1.2); Partial Thromboplastin Time 23.4 sec (22.0-30.0); Prothrombin Time 9.7 sec (10.0-12.5)
[2024-02-18 14:55] LABS: Carbon Dioxide 28 mmol/L (22-30); Chloride 108 mmol/L (98-107); Glucose 139 mg/dL (74-99); Sodium 141 mmol/L (137-145)
[2024-02-18 14:56] LABS: ALT 15 U/L (4-49); African American GFR (CKD) >90 (>60 ml/min/1.73 sqM); Anion Gap 5 mmol/L; Blood Urea Nitrogen 12 mg/dL (9-20); Calcium 8.8 mg/dL (8.4-10.2); Non-African American GFR(CKD) >90 (>60 ml/min/1.73 sqM); Total Bilirubin 0.4 mg/dL (0.2-1.3); Total Protein 6.2 g/dL (6.3-8.2)
[2024-02-18 14:59] LABS: AST 28 U/L (17-59); Alkaline Phosphatase 71 U/L (38-126); Potassium 4.4 mmol/L (3.5-5.1)
--- NOTE | 2024-02-18 15:36 | CT ---
EXAMINATION TYPE: CT brain wo con DATE OF EXAM: 02/18/2024 COMPARISON: CT brain and C-spine dated 10/30/2021 CLINICAL INDICATION: Male, 58 years old with history of Hypertension, headache; PHH, Hypertension, he adache. CT DLP: 1139.4 mGycm Automated exposure control for dose reduction was used. Findings: The ventricles, basal cisterns and sulci over the convexities are within normal limits and there is n o mass effect or shift of midline structures. No abnormal density is seen throughout the brain parenchyma and there is no acute intra or extra-axia l hemorrhage. The posterior fossa including the brainstem, fourth ventricle and cerebellar pontine angles appear no rmal. Intraorbital contents appear normal and symmetric. Visualized paranasal sinuses and mastoid air cells are well aerated. The calvarium is intact. IMPRESSION: No significant abnormality seen. There is no acute bleed or mass effect. [facility], , 02/18/2024 3:33 PM
[2024-02-18 15:48] LABS: Large Platelets Present
[2024-02-18 15:49] LABS: Polychromasia Present
[2024-02-18] MEDS: IBUPROFEN 600 MG TAB PO STA (16:27)
[2024-02-18] MEDS: amLODIPine 5 MG TAB PO STA (16:27)
[2024-02-18 17:33] VITALS: BP 189/71; PULSE 67; TEMP 97.9
== END 2024-02-18 17:33 | disposition home or self-care (01) ==
LOC: EC 13:44
DX: I10 Essential (primary) hypertension (principal); M54.2 Cervicalgia; Z88.0 Allergy status to penicillin; F17.200 Nicotine dependence, unspecified, uncomplicated; Z88.2 Allergy status to sulfonamides; Z88.5 Allergy status to narcotic agent; Z91.030 Bee allergy status; Z86.73 Personal history of transient ischemic attack (TIA), and cerebral infarction without residual deficits
CPT/HCPCS: 36415; 70450; 80053; 83735; 85025; 85610; 85730; 93005; 99285

== ENCOUNTER 2024-06-18 07:53 | Inpatient (IN) | payer MEDICARE, OTHER ==
--- NOTE | 2024-06-18 08:26 | ED ---
General Adult HPI - General Stated complaint: Nausea, vomiting Time Seen by Provider: 06/18/24 07:54 Source: patient, family, EMS, RN notes reviewed, old records reviewed Mode of arrival: EMS Limitations: language barrier - History of Present Illness Initial comments: Patient is a 58-year-old male who presents emergency department complaining of weakness. Patient does have tonsillar cancer. Is currently receiving chemotherapy. Was supposed to start radiation today or tomorrow however for the last week or so has been feeling weak with decreased oral intake and nausea. States that anytime he eats anything it sits in his stomach and then he experiences nausea and vomiting with it. Denies any abdominal pain. States he just feels generally weak. Denies any chest pain or shortness of breath. Denies any fevers or chills or cough. Has no urinary complaints. Denies diarrhea. Presents for further evaluation at this time.Patient is deaf but can read lips and communicate effectively. - Related Data Home Medications Medication Instructions Recorded Confirmed Atorvastatin [Lipitor] 40 mg PO HS 06/18/24 06/18/24 Cevimeline [Evoxac] 30 mg PO TID 06/18/24 06/18/24 Cyclobenzaprine [Flexeril] 5 mg PO BID PRN 06/18/24 06/18/24 Fluconazole [Diflucan] 100 mg PO DAILY 06/18/24 06/18/24 HYDROcodone/APAP 5-325MG [[place] 1 tab PO QID PRN 06/18/24 06/18/24 5-325] OLANZapine [ZyPREXA] 2.5 mg PO HS 06/18/24 06/18/24 Ondansetron [Zofran] 4 - 8 mg PO Q4H PRN MDD 8 TABS 06/18/24 06/18/24 Pilocarpine [Salagen] 5 mg PO DAILY 06/18/24 06/18/24 amLODIPine [Norvasc] 10 mg PO DAILY 06/18/24 06/18/24 Allergies Allergy/AdvReac Type Severity Reaction Status Date / Time Penicillins Allergy Unknown Unknown Verified 06/18/24 11:46 Childhood Sulfa (Sulfonamide Allergy Unknown Unknown Verified 06/18/24 11:46 Antibiotics) venom-honey bee Allergy Anaphylaxis Verified 06/18/24 11:46 codeine AdvReac Vomiting Verified 06/18/24 11:46 Review of Systems ROS Statement: Those systems with pertinent positive or pertinent negative responses have been documented in the HPI. Review of Systems: CONST: Denies fever EYES: Denies blurry vision ENT: Denies nasal congestion C/V: Denies Chest pain RESP: Denies shortness of breath GI: Denies abdominal pain : Denies dysuria SKIN: Denies rash. MSK: Denies joint pain. NEURO: Endorses general weakness ROS Other: All systems not noted in ROS Statement are negative. Past Medical History Past Medical History: Asthma, Cancer, CVA/TIA, Hearing Disorder / Deafness Additional Past Medical History / Comment(s): nerve damage, no deficits from stroke, pt is DEAF. Cancer treatment started 05/10/2024 History of Any Multi-Drug Resistant Organisms: None Reported Past Surgical History: Appendectomy Additional Past Surgical History / Comment(s): Abdominal surgery patient cannot recall., neck biopsy Past Anesthesia/Blood Transfusion Reactions: No Reported Reaction Past Psychological History: No Psychological Hx Reported Smoking Status: Former smoker Past Alcohol Use History: Occasional Past Drug Use History: None Reported General Exam - General Exam Comments Initial Comments: General: Appears in no acute distress. HEAD: Normal with no signs of head trauma. EYES: PERRLA, EOMI, conjunctiva normal, no discharge. ENT: Chronically deaf, Dry mucous membranes. No stridor. Tolerating s ecretions. RESPIRATORY: Clear breath sounds bilaterally. No wheezes, rales, or rhonchi. C/V: Regular rate and rhythm. S1 and S2 auscultated, no edema, peripheral pulses 2+ and intact throughout ABD: Abd is soft, nontender, nondistended EXT: Normal range of motion, no obvious deformity SKIN: No rashes or lesions observed on exposed skin. NEURO: Alert and oriented x 4. No focal deficits. Limitations: language barrier Course Vital Signs 06/18/24 06/18/24 06/18/24 07:57 11:27 13:21 Temperature 97.4 F L 98.3 F Pulse Rate 79 67 66 Respiratory 20 18 16 Rate Blood Pressure 142/81 139/70 106/63 O2 Sat by Pulse 99 100 100 Oximetry Medical Decision Making - Medical Decision Making Was pt. sent in by a medical professional or institution (, PA, HAND BINDERY ASSEMBLY WORKER, urgent care, hospital, or prison...) When possible be specific @ -No Did you speak to anyone other than the patient for history (EMS, parent, family, police, friend...)? What history was obtained from this source @ -Spoke with patient's sister who helped explain patient's current feelings and how he has been acting at home including the nausea and vomiting. Did you review nursing and triage notes (agree or disagree)? Why? @ -I reviewed and agree with nursing and triage notes Were old charts reviewed (outside hosp., previous admission, EMS record, old EKG, old radiological studies, urgent care reports/EKG's, prison records)? Report findings @ -Old charts reviewed from March 2024 revealing the known enlarged left- sided lymphadenopathy, likely malignancy. CT result is interpreted by radiology stated that the left-sided lymphadenopathy was diminished in size. Differential Diagnosis (chest pain, altered mental status, abdominal pain women, abdominal pain men, vaginal bleeding, weakness, fever, dyspnea, syncope, headache, dizziness, GI bleed, back pain, seizure, CVA, palpatations, mental health, musculoskeletal)? @ -Differential Weakness: Hypoglycemia, shock, sepsis, hyponatremia, anemia, infection, [place], ETOH, adverse medicine reaction, overdose, stroke, this is not meant to be an all-inclusive list. EKG interpreted by me (3pts min.). @ -As above X-rays interpreted by me (1pt min.). @ -Chest x-ray reveals no obvious acute cardiopulmonary process. CT interpreted by me (1pt min.). @ -None done U/S interpreted by me (1pt. min.). @ -None done What testing was considered but not performed or refused? (CT, X-rays, U/S, labs)? Why? @ -None What meds were considered but not given or refused? Why? @ -None Did you discuss the management of the patient with other professionals (professionals i.e. DrTay, PA, HAND BINDERY ASSEMBLY WORKER, lab, RT, psych nurse, social worker palliative care, instantizer operator, teacher, safety officer, rehabilitation case coordinator)? Give summary @ -No Was smoking cessation discussed for >3mins.? @ -No Was critical care preformed (if so, how long)? @ -No Were there social determinants of health that impacted care today? How? (Homelessness, low income, unemployed, alcoholism, drug addiction, transportation, low edu. Level, literacy, decrease access to med. care, [place] [facility], rehab)? @ -No Was there de-escalation of care discussed even if they declined (Discuss DNR or withdrawal of care, Hospice)? DNR status @ -No What co-morbidities impacted this encounter? (DM, HTN, Smoking, COPD, CAD, Cancer, CVA, ARF, Chemo, Hep., AIDS, mental health diagnosis, sleep apnea, morbid obesity)? @ -Head and neck cancer currently on chemotherapy Was patient admitted / discharged? Hospital course, mention meds given and route, prescriptions, significant lab abnormalities, going to OR and other pertinent info. @ -Presents to the emergency department for weakness and what appears to be dehydration. He has no complaints other than the general weakness which has been ongoing for the last week over which time he has not had much in terms of p.o. intake due to persistent nausea and vomiting. We will obtain general labs, as well as screenings test for infection. He was in agreement this plan. Will be given a 1 L fluid bolus and placed on maintenance fluids. Patient given Protonix and Zofran. Patient's laboratory studies returned remarkable for mild hypokalemia which was replenished. Mild thrombocytopenia, mild anemia, as well is slight leukocytosis likely all secondary to chemo. Viral swabs negative. Urine still pending. On reevaluation, I discussed results with patient. He will be admitted to the hospital. He was in agreement this plan. I spoke with the admitting provider, Dr. Garcia who accepted the admission. Undiagnosed new problem with uncertain prognosis? @ -No Drug Therapy requiring intensive monitoring for toxicity (Heparin, Nitro, Insul in, Cardizem)? @ -No Were any procedures done? @ -No Diagnosis/symptom? @ -Weakness, dehydration Acute, or Chronic, or Acute on Chronic? @ -Acute Uncomplicated (without systemic symptoms) or Complicated (systemic symptoms)? @ -Complicated Side effects of treatment? @ -None Exacerbation, Progression, or Severe Exacerbation] @ -No Poses a threat to life or bodily function? @ -Potentially, yes - Lab Data Result diagrams: 06/18/24 08:27 06/18/24 08:27 Lab Results 06/18/24 06/18/24 06/18/24 Range/Units 08:27 08:27 08:27 WBC 12.70 H (4.50-10.00) 10*3/uL RBC 2.60 L (4.40-5.60) 10*6/uL Hgb 9.5 L (13.0-17.0) g/dL Hct 25.8 L (39.6-50.0) % MCV 99.2 H (80.0-97.0) fL MCH 36.5 H (27.0-32.0) pg MCHC 36.8 (32.0-37.0) g/dL Plt Count 87 L (140-440) 10*3/uL MPV 10.0 (9.5-12.2) fL Immature Gran % (Auto) 0.8 % Neutrophils % (Manual) 89 % Lymphocytes % (Manual) 5 % Monocytes % (Manual) 3 % Eosinophils % (Manual) 2 % Basophils % (Manual) 1 % Immature Gran # 0.10 H (0.00-0.04) 10*3/uL Neutrophils # (Manual) 11.30 H (1.3-7.7) k/uL Lymphocytes # (Manual) 0.64 L (1.0-4.8) k/uL Monocytes # (Manual) 0.38 (0-1.0) k/uL Eosinophils # (Manual) 0.25 (0-0.7) k/uL Basophils # (Manual) 0.13 (0-0.2) k/uL Nucleated RBCs 0 (0-0) /100 WBC Manual Slide Review Performed Immature Plt Fraction 4.7 (1.1-6.1) % Anisocytosis (manual) Present Spherocytes Present PT 10.5 (10.0-12.5) sec INR 0.9 (<1.2) APTT 21.6 L (22.0-30.0) sec Sodium 136 L (137-145) mmol/L Potassium 3.4 L (3.5-5.1) mmol/L Chloride 96 L (98-107) mmol/L Carbon Dioxide 31 H (22-30) mmol/L Anion Gap 9 mmol/L BUN 18 (9-20) mg/dL Creatinine 0.89 (0.66-1.25) mg/dL Est GFR (CKD-EPI)AfAm >90 (>60 ml/min/1.73 sqM) Est GFR (CKD-EPI)NonAf >90 (>60 ml/min/1.73 sqM) Glucose 111 H (74-99) mg/dL Plasma Lactic Acid Sameer (0.7-2.0) mmol/L Calcium 9.5 (8.4-10.2) mg/dL Magnesium 1.9 (1.6-2.3) mg/dL Total Bilirubin 0.7 (0.2-1.3) mg/dL AST 19 (17-59) U/L ALT 16 (4-49) U/L Alkaline Phosphatase 98 (38-126) U/L Total Protein 6.3 (6.3-8.2) g/dL Albumin 3.9 (3.5-5.0) g/dL TSH (0.465-4.680) mIU/L Influenza Type A (PCR) (Not Detectd) Influenza Type B (PCR) (Not Detectd) RSV (PCR) (Not Detectd) SARS-CoV-2 (PCR) (Not Detectd) 06/18/24 06/18/24 06/18/24 Range/Units 08:27 08:27 08:40 WBC (4.50-10.00) 10*3/uL RBC (4.40-5.60) 10*6/uL Hgb (13.0-17.0) g/dL Hct (39.6-50.0) % MCV (80.0-97.0) fL MCH (27.0-32.0) pg MCHC (32.0-37.0) g/dL Plt Count (140-440) 10*3/uL MPV (9.5-12.2) fL Immature Gran % (Auto) % Neutrophils % (Manual) % Lymphocytes % (Manual) % Monocytes % (Manual) % Eosinophils % (Manual) % Basophils % (Manual) % Immature Gran # (0.00-0.04) 10*3/uL Neutrophils # (Manual) (1.3-7.7) k/uL Lymphocytes # (Manual) (1.0-4.8) k/uL Monocytes # (Manual) (0-1.0) k/uL Eosinophils # (Manual) (0-0.7) k/uL Basophils # (Manual) (0-0.2) k/uL Nucleated RBCs (0-0) /100 WBC Manual Slide Review Immature Plt Fraction (1.1-6.1) % Anisocytosis (manual) Spherocytes PT (10.0-12.5) sec INR (<1.2) APTT (22.0-30.0) sec Sodium (137-145) mmol/L Potassium (3.5-5.1) mmol/L Chloride (98-107) mmol/L Carbon Dioxide (22-30) mmol/L Anion Gap mmol/L BUN (9-20) mg/dL Creatinine (0.66-1.25) mg/dL Est GFR (CKD-EPI)AfAm (>60 ml/min/1.73 sqM) Est GFR (CKD-EPI)NonAf (>60 ml/min/1.73 sqM) Glucose (74-99) mg/dL Plasma Lactic Acid Sameer 1.3 (0.7-2.0) mmol/L Calcium (8.4-10.2) mg/dL Magnesium (1.6-2.3) mg/dL Total Bilirubin (0.2-1.3) mg/dL AST (17-59) U/L ALT (4-49) U/L Alkaline Phosphatase (38-126) U/L Total Protein (6.3-8.2) g/dL Albumin (3.5-5.0) g/dL TSH 1.470 (0.465-4.680) mIU/L Influenza Type A (PCR) Not Detected (Not Detectd) Influenza Type B (PCR) Not Detected (Not Detectd) RSV (PCR) Not Detected (Not Detectd) SARS-CoV-2 (PCR) Not Detected (Not Detectd) - EKG Data -: EKG Interpreted by Me EKG Comments: 12-lead Electrocardiogram Interpretation Note EKG was reviewed and interpreted by myself. 12-lead ECG performed at 0858 is interpreted by me as revealing normal sinus rhythm at a rate of 61 beats per minute. [place] is normal. DC interval is 161 ms, QRS duration 92 ms, QTc is 413 ms.. There were no ST or T wave abnormalities to suggest myocardial ischemia or injury. R wave progression across the precordium was satisfactory. By my interpretation this EKG is non-diagnostic for acute ischemia. Disposition Clinical Impression: Dehydration, Weakness Disposition: ADMITTED IP TO THIS HOSP Condition: Stable Time of Disposition: 10:30
[2024-06-18] MEDS: PANTOPRAZOLE 40 MG/10 ML VIAL IVP STA (08:39)
[2024-06-18] MEDS: ONDANSETRON 4 MG/2 ML VIAL IVP STA (08:43)
[2024-06-18] MEDS: SODIUM CHLORIDE 0.9% 1,000 ML IV ONE (08:43)
[2024-06-18 08:45] LABS: HCT 25.8 % (39.6-50.0); HGB 9.5 g/dL (13.0-17.0); Immature Platelet Fraction 4.7 % (1.1-6.1); MCH 36.5 pg (27.0-32.0); MCHC 36.8 g/dL (32.0-37.0); MCV 99.2 fL (80.0-97.0); RDW 15.3 % (11.5-14.5)
[2024-06-18] MEDS: SODIUM CHLORIDE 0.9% 1,000 ML IV SCH (08:46)
[2024-06-18 08:49] LABS: INR 0.9 (<1.2); Prothrombin Time 10.5 sec (10.0-12.5)
[2024-06-18 08:57] LABS: ALT 16 U/L (4-49); AST 19 U/L (17-59); African American GFR (CKD) >90 (>60 ml/min/1.73 sqM); Albumin 3.9 g/dL (3.5-5.0); Alkaline Phosphatase 98 U/L (38-126); Anion Gap 9 mmol/L; Blood Urea Nitrogen 18 mg/dL (9-20); Calcium 9.5 mg/dL (8.4-10.2); Carbon Dioxide 31 mmol/L (22-30); Chloride 96 mmol/L (98-107); Glucose 111 mg/dL (74-99); Magnesium 1.9 mg/dL (1.6-2.3); Non-African American GFR(CKD) >90 (>60 ml/min/1.73 sqM); Potassium 3.4 mmol/L (3.5-5.1); Sodium 136 mmol/L (137-145); Total Bilirubin 0.7 mg/dL (0.2-1.3); Total Protein 6.3 g/dL (6.3-8.2)
[2024-06-18 08:58] LABS: Partial Thromboplastin Time 21.6 sec (22.0-30.0)
--- NOTE | 2024-06-18 09:33 | XR ---
EXAMINATION TYPE: XR chest 2V DATE OF EXAM: 06/18/2024 9:29 AM COMPARISON: Chest radiographs from 10/30/2021, PET CT 02/05/2024 TECHNIQUE: XR chest 2V Frontal and lateral views of the chest. CLINICAL INDICATION:Male, 58 years old with history of Weakness; FINDINGS: Lungs/Pleura: There is no evidence of pleural effusion, focal consolidation, or pneumothorax. Pulmonary vascularity: Unremarkable. Heart/mediastinum: Cardiomediastinal silhouette is unremarkable. Musculoskeletal: No acute osseous pathology. IMPRESSION: No acute cardiopulmonary disease/process. [facility], , 06/18/2024 9:30 AM
[2024-06-18 09:54] LABS: Anisocytosis (M) Present; Spherocytes Present
[2024-06-18 09:57] LABS: Platelet Count 87 10*3/uL (140-440)
[2024-06-18 10:01] LABS: Basophils # (M) 0.13 k/uL (0-0.2); Eosinophils # (M) 0.25 k/uL (0-0.7); Lymphocytes # (M) 0.64 k/uL (1.0-4.8); Monocytes # (M) 0.38 k/uL (0-1.0); Neutrophils % (M) 89 %; Nucleated Red Blood Cells 0 /100 WBC (0-0); Total Cells Counted 100
[2024-06-18] MEDS ORDERED: ONDANSETRON 4 MG/2 ML VIAL IVP PRN (10:30)
[2024-06-18] MEDS ORDERED: NALOXONE 0.4 MG/ML 1 ML VIAL IV PRN (10:30)
[2024-06-18] MEDS ORDERED: ACETAMINOPHEN TAB 325 MG TAB PO PRN (10:30)
--- NOTE | 2024-06-18 11:10 | P.HPIM ---
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 Yu. Patient presented to the emergency department with a chief complaint of weakness and intractable nausea and vomiting. Patient states since last chemotherapy treatment he has progressively gotten weaker, with a decreased appetite, and intractable nausea and vomiting if he attempts to eat or drink anything. He also reports mild constipation stating he has not had a bowel movement in 3 days but also states he has not really ate or drank anything to have a bowel movement. He denies abdominal pain or discomfort. Reports overall just feeling very weak and tired. He denies having any fevers, chills, dysphagia, chest pain, palpitations, shortness of breath, cough or congestion, or experiencing any numbness/tingling/weakness/swelling in his extremities. Patient reports urinating without any difficulties or changes. Upon arrival to our facility, patient underwent evaluation in the emergency department. Vital signs upon arrival show blood pressure 142/81, heart rate 79, respiratory rate 20, temp 97.4 F, and SpO2 of 99% on room air. EKG completed showing normal sinus rhythm at 61 bpm. Chest X-ray negative for acute cardiopulmonary process. Labs completed and reviewed. Bicytopenia with hemoglobin of 9.5 and platelet count of 87 leukocytosis with WBC count of 12.70, neutrophils of 11.30, lymphocytes of 0.64. and immature granulocytes of 0.10. Coagulation profile showing low PTT of 21.6 otherwise normal findings. BMP showing hypokalemia with potassium of 3.4 and metabolic alkalosis with chloride of 96, bicarb of 31, and anion gap of 9. Blood glucose 111. Lactic acid was 1.3. Calcium 9.5. Magnesium 1.9. TSH 1.470. Influenza A, influenza B, RSV, and COVID PCR were negative. Patient admitted under our services with consultation to oncology, Physical Therapy, and Occupational Therapy at this time. Review of systems: Pertinent positives and negatives as discussed in HPI, a complete review of systems was performed and all other systems are negative. Physical exam: Vital signs reviewed and stable. General: Nontoxic, no distress and appears stated age. Thin build. Derm: Skin warm and dry, normal coloration for ethnicity. Head: Atraumatic, normocephalic and symmetric. Patient is deaf. Eyes: EOM's intact, no lid lag, and anicteric sclera Mouth: no lip lesions, mucus membranes moist Cardiovascular: regular rate and rhythm with normal S1S2, no murmur, positive posterior tibial pulses bilaterally, and cap refill < 2 seconds. Lungs: Respirations even, regular, and unlabored on room air. Lungs CTA bilaterally, no rhonchi, no rales, no wheezing, and no accessory muscle usage. Abdominal: soft, nontender to palpation, no guarding, no appreciable organomegaly Ext: ROM intact. No gross muscle atrophy, no edema, no contractures Neuro: Face symmetrical and CN II-XII grossly intact with no noted focal neuro deficits Psych: Alert and oriented to person, place, time, and situation. Appropriate and pleasant affect. Assessment and Plan of Care: Chemotherapy-induced nausea and vomiting Failure to thrive Generalized weakness, secondary to above Metabolic alkalosis, secondary to dehydration resulting from chemotherapy induced nausea and vomiting Hypokalemia Bicytopenia -Oncology consulted, appreciate recommendation -Continue gentle IV fluid hydration with 0.9% normal saline at 130 cc/h. -Compazine 10 mg IVP every 6 hours as needed for nausea. -GI prophylaxis with Protonix 40 mg IVP daily. -Potassium was replacement with potassium chloride IVPB. -Will continue to monitor closely with repeat a.m. labs to monitor for resolution of hypokalemia as well as improvement of metabolic alkalosis - PT/OT consulted -Patient started on protein supplements 3 times daily between meals and consult placed to dietary for evaluation. Constipation -Patient reports constipation with last bowel movement being 3 days ago but denies having any abdominal pain or discomfort. -Order placed for KUB -Patient started on daily bowel regimen with MiraLAX 17 g daily and Dulcolax 10 mg p.o. may be given daily as needed for continued constipation. Hypertension -Continue daily medication regimen with amlodipine 10 mg daily. Hyperlipidemia -Continue daily medication regimen with atorvastatin 40 mg nightly. Data and imaging reviewed: As stated above in HPI The patient is admitted with an anticipated greater than 2 midnight stay for evaluation of chemotherapy-induced nausea and vomiting CODE STATUS: Full code DVT prophylaxis: SCDs secondary to bicytopenia Discussed with: Patient, patient's family member at bedside, RN, and ED physician Anticipated discharge date: Pending clinical course Anticipated discharge place: Pending clinical course, likely home with home care Patient was seen independently by Nurse Practitioner. This document was prepared using [email or web address] dictation software. Please allow for errors in artisan plasterer while rare they do occur. Nabeel Adan NP rendered care for this patient independently, reviewed the findings and plan as documented in the note above and agree with plan. I did not physically speak with or examine the patient on this date. Past Medical History Past Medical History: Asthma, Cancer, CVA/TIA, Hearing Disorder / Deafness Additional Past Medical History / Comment(s): nerve damage, no deficits from stroke, pt is DEAF. Cancer treatment started 05/10/2024 History of Any Multi-Drug Resistant Organisms: None Reported Past Surgical History: Appendectomy Additional Past Surgical History / Comment(s): Abdominal surgery patient cannot recall., neck biopsy Past Anesthesia/Blood Transfusion Reactions: No Reported Reaction Past Psychological History: No Psychological Hx Reported Smoking Status: Former smoker Past Alcohol Use History: Occasional Past Drug Use History: None Reported Medications and Allergies Home Medications Medication Instructions Recorded Confirmed Type Atorvastatin [Lipitor] 40 mg PO HS 06/18/24 06/18/24 History Cevimeline [Evoxac] 30 mg PO TID 06/18/24 06/18/24 History Cyclobenzaprine [Flexeril] 5 mg PO BID PRN 06/18/24 06/18/24 History Fluconazole [Diflucan] 100 mg PO DAILY 06/18/24 06/18/24 History HYDROcodone/APAP 5-325MG [[place] 1 tab PO QID PRN 06/18/24 06/18/24 History 5-325] OLANZapine [ZyPREXA] 2.5 mg PO HS 06/18/24 06/18/24 History Ondansetron [Zofran] 4 - 8 mg PO Q4H PRN MDD 8 TABS 06/18/24 06/18/24 History Pilocarpine [Salagen] 5 mg PO DAILY 06/18/24 06/18/24 History amLODIPine [Norvasc] 10 mg PO DAILY 06/18/24 06/18/24 History Allergies Allergy/AdvReac Type Severity Reaction Status Date / Time Penicillins Allergy Unknown Unknown Verified 06/18/24 11:46 Childhood Sulfa (Sulfonamide Allergy Unknown Unknown Verified 06/18/24 11:46 Antibiotics) venom-honey bee Allergy Anaphylaxis Verified 06/18/24 11:46 codeine AdvReac Vomiting Verified 06/18/24 11:46 Physical Exam Vitals: Vital Signs Temp Pulse Resp BP Pulse Ox 06/18/24 07:57 97.4 F L 79 20 142/81 99 Intake and Output 06/17/24 06/18/24 06/18/24 22:59 06:59 14:59 Other: Weight 63.503 kg Results CBC & Chem 7: 06/18/24 08:27 06/18/24 08:27 Labs: Abnormal Lab Results - Last 24 Hours (Table) 06/18/24 06/18/24 06/18/24 Range/Units 08:27 08:27 08:27 WBC 12.70 H (4.50-10.00) 10*3/uL RBC 2.60 L (4.40-5.60) 10*6/uL Hgb 9.5 L (13.0-17.0) g/dL Hct 25.8 L (39.6-50.0) % MCV 99.2 H (80.0-97.0) fL MCH 36.5 H (27.0-32.0) pg Plt Count 87 L (140-440) 10*3/uL Immature Gran # 0.10 H (0.00-0.04) 10*3/uL Neutrophils # (Manual) 11.30 H (1.3-7.7) k/uL Lymphocytes # (Manual) 0.64 L (1.0-4.8) k/uL APTT 21.6 L (22.0-30.0) sec Sodium 136 L (137-145) mmol/L Potassium 3.4 L (3.5-5.1) mmol/L Chloride 96 L (98-107) mmol/L Carbon Dioxide 31 H (22-30) mmol/L Glucose 111 H (74-99) mg/dL
[2024-06-18] MEDS ORDERED: PROCHLORPERAZINE INJ 10 MG/2 ML VIAL IVP PRN (11:11)
[2024-06-18] MEDS: POTASSIUM BICARBONATE/CIT AC 20 MEQ TABLET.EFF PO ONE (11:28)
[2024-06-18 13:16] LABS: Influenza A Not Detected (Not Detectd); Influenza B Not Detected (Not Detectd); RSV Not Detected (Not Detectd)
[2024-06-18] MEDS: POTASSIUM CHLORIDE 20 MEQ in WATER FOR INJECTION 1 100ML.BAG IVPB STA (13:43)
[2024-06-18] MEDS: CEVIMELINE 30 MG CAP PO SCH (15:30)
--- NOTE | 2024-06-18 18:25 | XR ---
EXAMINATION TYPE: XR KUB DATE OF EXAM: 06/18/2024 6:02 PM COMPARISON: Previous abdominal radiograph 03/04/2017. CLINICAL INDICATION: Male, 58 years old with history of constipation; PHH, pain TECHNIQUE: One radiographic view of the abdomen was obtained. FINDINGS: Nonobstructive bowel gas pattern. Moderate diffuse colonic stool burden. Radiopaque metalli c density in the midline pelvis. Evaluation for free air is limited due to supine technique. No evide nce of nephrolithiasis. Partially visualized lower lungs appear clear. IMPRESSION: Nonobstructive bowel gas pattern. Moderate diffuse colonic stool burden suggesting constipation. [facility], , 06/18/2024 6:22 PM
[2024-06-18] MEDS: ATORVASTATIN 40 MG TAB PO SCH (20:53)
[2024-06-18] MEDS: OLANZapine 2.5 MG TAB PO SCH (20:53)
[2024-06-18] MEDS: polyethylene glycoL 3350 17 GM POWD.PACK PO SCH (20:57)
--- NOTE | 2024-06-18 21:23 | P.CONS ---
History of Present Illness - Reason for Consult Consult date: 06/18/24 head neck cancer Requesting physician: Marbin Gar - Chief Complaint weakness, decreased oral intake - History of Present Illness Mr. De is a 58-year-old gentleman with a past medical history significant for bilateral hearing loss along with CVA who is seen as a posthospital follow- up visit for left sided neck pain. He had been having increased left-sided neck pain along with swelling for approximately 1 week prior to admission on 12/18/2023. Prior to presentation, he did not have any constitutional symptoms including fevers, chills, night sweats, anorexia, or unexplained weight loss. CT of the neck with contrast on 12/18/2023 noted enlarged 1.85 cm lymph node anterior to the left lateral mastoid muscle with a second jugular lymph node anterior to the sternocleidomastoid measuring 1.4 cm. A third lymph node was enlarged measuring 1.05 cm all in the left neck. CT abdomen/pelvis with contrast on 12/01/2023 prior to admission revealed no acute abnormalities. ENT was consulted and performed FNA biopsy on 12/20/2023 that noted degenerated kerat otic/dyskeratotic debris with limited degenerated specimen. He did have subsequent follow-up with ENT outpatient and had PET/CT performed today prior to his visit. On discharge, he noted having a course of antibiotics that did not significantly decrease the size of the lesion in the left neck. He does endorse left-sided neck stiffness that is worse on rotating his head to the right and avoid sleeping on the left side of his head. He had been smoking cigarettes intermittently prior to his admission and is no longer doing so. He had been smoking cigarettes for approximately 30 years. He notes intermittent alcohol use on social occasions without abuse and no illicit drug use. He has been scheduled for a core needle biopsy of the left neck on 02/15/2023. PET/CT performed on 02/05/2024 noted FDG avid lymphadenopathy in the left neck with no other suspicious findings Biopsy of left neck lymph node on 02/17/2024 revealed suspicion for squamous cell carcinoma, but had limited material due to necrotic neoplasm. Repeat biopsy performed on 03/12/2024 at [facility] revealed squamous cell carcinoma that was p16 positive. Upon follow-up with ENT, he was not felt to be an ideal candidate for surgical resection due to concern of extracapsular extension of the left neck disease and lack of clear plane of the lymph node on imaging. 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 Cycle 1 of weekly cisplatin 40 mg/m was started on 05/10/2024 most recently completed cycle 4 on 06/14/2024. with 2/3 G-CSF given on 06/17. Patient presented the emergency room for complaints of weakness, nausea vomiting and decreased oral intake over the last couple days. WBC 12.7, hemoglobin 9.5, platelets 87,000, creatinine 0.89, GFR greater than 90. Viral PCR negative. Chest x-ray showed no acute cardiopulmonary processes. Patient has been started on IV hydration and antiemetics as needed. Review of Systems 10 point ROS is negative except as stated in the HPI Past Medical History Past Medical History: Asthma, Cancer, CVA/TIA, Hearing Disorder / Deafness Additional Past Medical History / Comment(s): nerve damage, no deficits from stroke, pt is DEAF. Cancer treatment started 05/10/2024 History of Any Multi-Drug Resistant Organisms: None Reported Past Surgical History: Appendectomy Additional Past Surgical History / Comment(s): Abdominal surgery patient cannot recall., neck biopsy Past Anesthesia/Blood Transfusion Reactions: No Reported Reaction Past Psychological History: No Psychological Hx Reported Smoking Status: Former smoker Past Alcohol Use History: Occasional Past Drug Use History: None Reported Medications and Allergies Home Medications Medication Instructions Recorded Confirmed Type Atorvastatin [Lipitor] 40 mg PO HS 06/18/24 06/18/24 History Cevimeline [Evoxac] 30 mg PO TID 06/18/24 06/18/24 History Cyclobenzaprine [Flexeril] 5 mg PO BID PRN 06/18/24 06/18/24 History Fluconazole [Diflucan] 100 mg PO DAILY 06/18/24 06/18/24 History HYDROcodone/APAP 5-325MG [[place] 1 tab PO QID PRN 06/18/24 06/18/24 History 5-325] OLANZapine [ZyPREXA] 2.5 mg PO HS 06/18/24 06/18/24 History Ondansetron [Zofran] 4 - 8 mg PO Q4H PRN MDD 8 TABS 06/18/24 06/18/24 History Pilocarpine [Salagen] 5 mg PO DAILY 06/18/24 06/18/24 History amLODIPine [Norvasc] 10 mg PO DAILY 06/18/24 06/18/24 History Allergies Allergy/AdvReac Type Severity Reaction Status Date / Time Penicillins Allergy Unknown Unknown Verified 06/18/24 11:46 Childhood Sulfa (Sulfonamide Allergy Unknown Unknown Verified 06/18/24 11:46 Antibiotics) venom-honey bee Allergy Anaphylaxis Verified 06/18/24 11:46 codeine AdvReac Vomiting Verified 06/18/24 11:46 Physical Exam Vitals: Vital Signs Temp Pulse Resp BP Pulse Ox 06/18/24 16:37 75 16 122/64 100 06/18/24 15:31 75 16 113/64 100 06/18/24 13:21 98.3 F 66 16 106/63 100 06/18/24 11:27 67 18 139/70 100 06/18/24 07:57 97.4 F L 79 20 142/81 99 Intake and Output 06/18/24 06/18/24 06/18/24 06:59 14:59 22:59 Other: Weight 63.503 kg - Constitutional General appearance: average body habitus, no no acute distress - EENT Eyes: anicteric sclerae, EOMI ENT: hard of hearing - Respiratory breathing is even and unlabored - Cardiovascular skin warm and dry - Gastrointestinal General gastrointestinal: soft, no tenderness - Integumentary radiation skin changes to neck - Musculoskeletal Musculoskeletal: generalized weakness - Psychiatric Psychiatric: A&O x's 3 Results CBC & Chem 7: 06/18/24 08:27 06/18/24 08:27 Labs: Abnormal Lab Results - Last 24 Hours (Table) 06/18/24 06/18/24 06/18/24 Range/Units 08:27 08:27 08:27 WBC 12.70 H (4.50-10.00) 10*3/uL RBC 2.60 L (4.40-5.60) 10*6/uL Hgb 9.5 L (13.0-17.0) g/dL Hct 25.8 L (39.6-50.0) % MCV 99.2 H (80.0-97.0) fL MCH 36.5 H (27.0-32.0) pg Plt Count 87 L (140-440) 10*3/uL Immature Gran # 0.10 H (0.00-0.04) 10*3/uL Neutrophils # (Manual) 11.30 H (1.3-7.7) k/uL Lymphocytes # (Manual) 0.64 L (1.0-4.8) k/uL APTT 21.6 L (22.0-30.0) sec Sodium 136 L (137-145) mmol/L Potassium 3.4 L (3.5-5.1) mmol/L Chloride 96 L (98-107) mmol/L Carbon Dioxide 31 H (22-30) mmol/L Glucose 111 H (74-99) mg/dL Chest x-ray: report reviewed Assessment and Plan (1) Head and neck cancer Current Visit: Yes Status: Acute Code(s): C76.0 - MALIGNANT NEOPLASM OF HEAD, FACE AND NECK SNOMED Code(s): 134316056 (2) Dehydration Current Visit: Yes Status: Acute Code(s): E86.0 - DEHYDRATION SNOMED Code(s): 92056791 (3) Weakness Current Visit: Yes Status: Acute Code(s): R53.1 - WEAKNESS SNOMED Code(s): 39758443 Plan: N/V/, dehydration: Patient presented the emergency room for complaints of weakness, nausea vomiting and decreased oral intake over the last couple days. -Creatinine 0.89, GFR greater than 90. - Patient has been started on IV hydration and antiemetics as needed -Will continue to follow Oropharync Carcinoma: -Oncology history as dictated in the HPI -Currently on concurrent chemo/RT -Cycle 1 of weekly cisplatin 40 mg/m was started on 05/10/2024 most recently completed cycle 4 on 06/14/2024. with 2/3 G-CSF given on 06/17. White counts adequate, no further G-CSF at this time -Treatment on hold until acutely recovered Doctor attests: I performed a history and physical examination of this patient, developed impression and plan of care. Discussed with dictator. I agree with dictators note, documented as a scribe.
[2024-06-19] MEDS: PILOCARPINE 5 MG TAB PO SCH (08:52)
[2024-06-19] MEDS: PANTOPRAZOLE 40 MG/10 ML VIAL IV SCH (08:52)
[2024-06-19] MEDS: FLUCONAZOLE 100 MG TAB PO SCH (08:52)
[2024-06-19] MEDS: amLODIPine 10 MG TAB PO SCH (08:53)
[2024-06-19 15:10] LABS: Blood Urea Nitrogen 12.8 mg/dL (9.0-27.0); Chloride 105 mmol/L (96-109); Glucose 81 mg/dL (70-110); Potassium 3.8 mmol/L (3.5-5.5); Sodium 143 mmol/L (135-145)
[2024-06-19 15:11] LABS: ALT 11 U/L (10-49); AST 14 U/L (14-35); Albumin 3.4 g/dL (3.8-4.9); Albumin/Globulin Ratio 2.12 Ratio (1.60-3.17); Alkaline Phosphatase 92 U/L (41-126); Calcium 8.4 mg/dL (8.7-10.3); Globulin 1.6 g/dL (1.6-3.3); Magnesium 1.7 mg/dL (1.5-2.4); Total Bilirubin 0.4 mg/dL (0.3-1.2)
--- NOTE | 2024-06-19 17:10 | P.PN ---
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 Yu. Patient presented to the emergency department with a chief complaint of weakness and intractable nausea and vomiting. Patient states since last chemotherapy treatment he has progressively gotten weaker, with a decreased appetite, and intractable nausea and vomiting if he attempts to eat or drink anything. He also reports mild constipation stating he has not had a bowel movement in 3 days but also states he has not really ate or drank anything to have a bowel movement. He denies abdominal pain or discomfort. Reports overall just feeling very weak and tired. He denies having any fevers, chills, dysphagia, chest pain, palpitations, shortness of breath, cough or congestion, or experiencing any numbness/tingling/weakness/swelling in his extremities. Patient reports urinating without any difficulties or changes. Upon arrival to our facility, patient underwent evaluation in the emergency department. Vital signs upon arrival show blood pressure 142/81, heart rate 79, respiratory rate 20, temp 97.4 F, and SpO2 of 99% on room air. EKG completed showing normal sinus rhythm at 61 bpm. Chest X-ray negative for acute cardiopulmonary process. Labs completed and reviewed. Bicytopenia with hemoglobin of 9.5 and platelet count of 87 leukocytosis with WBC count of 12.70, neutrophils of 11.30, lymphocytes of 0.64. and immature granulocytes of 0.10. Coagulation profile showing low PTT of 21.6 otherwise normal findings. BMP showing hypokalemia with potassium of 3.4 and metabolic alkalosis with chloride of 96, bicarb of 31, and anion gap of 9. Blood glucose 111. Lactic acid was 1.3. Calcium 9.5. Magnesium 1.9. TSH 1.470. Influenza A, influenza B, RSV, and COVID PCR were negative. Patient admitted under our services with consultation to oncology, Physical Therapy, and Occupational Therapy at this time. Physical exam: Patient seen and fully evaluated at bedside this morning. He reports improvemen t in nausea and vomiting after receiving Compazine but states still having difficulties with weakness and RN reports requiring assistance x 2 with ambulation to restroom. Patient was hopeful to be discharged by tomorrow morning secondary to his birthday and plans to go fishing. Discussed with justin ent and family at bedside will attempt to discharge later today versus tomorrow morning as patient needs to work on balance and increase strength with ambulation. Will see how patient tolerates lunch and dinner. He reports eating half of his eggs this morning and drinking protein drink and tolerating well. Vital signs reviewed and stable. General: Nontoxic, no distress and appears stated age. Thin build. Derm: Skin warm and dry, normal coloration for ethnicity. Head: Atraumatic, normocephalic and symmetric. Patient is deaf. Eyes: EOM's intact, no lid lag, and anicteric sclera Mouth: no lip lesions, mucus membranes moist Cardiovascular: regular rate and rhythm with normal S1S2, no murmur, positive posterior tibial pulses bilaterally, and cap refill < 2 seconds. Lungs: Respirations even, regular, and unlabored on room air. Lungs CTA bilaterally, no rhonchi, no rales, no wheezing, and no accessory muscle usage. Abdominal: soft, nontender to palpation, no guarding, no appreciable organomegaly Ext: ROM intact. No gross muscle atrophy, no edema, no contractures Neuro: Face symmetrical and CN II-XII grossly intact with no noted focal neuro deficits Psych: Alert and oriented to person, place, time, and situation. Appropriate and pleasant affect. Assessment and Plan of Care: Chemotherapy-induced nausea and vomiting Failure to thrive Generalized weakness, secondary to above Metabolic alkalosis, secondary to dehydration resulting from chemotherapy induced nausea and vomiting. Resolved with IV fluid hydration. Hypokalemia Bicytopenia -Oncology consulted, discussed plan of care with oncology BOILERMAKER'S ASSISTANT. Recommending continued monitoring at least overnight for improvement in weakness. -Continue gentle IV fluid hydration with 0.9% normal saline at 75 cc/h. -Compazine 10 mg IVP every 6 hours as needed for nausea. -GI prophylaxis with Protonix 40 mg IVP daily. -Potassium was replacement with potassium chloride IVPB. -Will continue to monitor closely with repeat a.m. labs to monitor for resolu tion of hypokalemia as well as improvement of metabolic alkalosis - PT/OT consulted -Patient started on protein supplements 3 times daily between meals and consult placed to dietary for evaluation. - TSH 1.470. Constipation -Patient reports constipation with last bowel movement being 3 days ago but denies having any abdominal pain or discomfort. -Order placed for KUB -Patient started on daily bowel regimen with MiraLAX 17 g daily and Dulcolax 10 mg p.o. may be given daily as needed for continued constipation. Hypertension -Continue daily medication regimen with amlodipine 10 mg daily. Hyperlipidemia -Continue daily medication regimen with atorvastatin 40 mg nightly. Data and imaging reviewed: Morning labs reviewed. BMP unremarkable. Blood glucose 81. Magnesium slightly low at 1.7 otherwise normal findings. TSH 1.470. Vital signs reviewed. Blood pressure 108/63, heart rate 68, respiratory rate 16, temp 97.8 F, and SpO2 of 100% on room air. CODE STATUS: Full code DVT prophylaxis: SCDs secondary to bicytopenia Discussed with: Patient, patient's family member at bedside, RN, and oncology BOILERMAKER'S ASSISTANT Anticipated discharge date: Pending clinical course, likely within the next [address]: Pending clinical course, likely home with home care Patient was seen independently by Nurse Practitioner. This document was prepared using [employer] dictation software. Please allow for errors in skip tender while rare they do occur. Nabeel Adan, IRVIN rendered care for this patient independently, reviewed the findings and plan as documented in the note above and agree with plan. I did not physically speak with or examine the patient on this date. Objective - Vital Signs Vital signs: Vital Signs Temp 97.8 F 06/19/24 07:02 Pulse 68 06/19/24 07:02 Resp 16 06/19/24 07:02 BP 108/63 06/19/24 07:02 Pulse Ox 100 06/19/24 07:02 FiO2 Intake & Output 06/18/24 06/19/24 06/19/24 18:59 06:59 18:59 Output Total 300 Balance -300 Weight 63.503 kg 63.503 kg Output: Urine 300 - Labs CBC & Chem 7: 06/18/24 08:27 06/19/24 06:36 Labs: Abnormal Lab Results - Last 24 Hours (Table) 06/18/24 Range/Units 08:27 Plt Count 87 L (140-440) 10*3/uL Neutrophils # (Manual) 11.30 H (1.3-7.7) k/uL Lymphocytes # (Manual) 0.64 L (1.0-4.8) k/uL
[2024-06-19 17:35] LABS: Basophils # (M) 0 X 10*3/uL (0.00-0.10); Eosinophils # (M) 0.06 X 10*3/uL (0.04-0.35); HGB 7.1 g/dL (13.0-17.0); Immature Platelet Fraction 4.9 % (1.1-6.1); Lymphocytes # (M) 0.83 X 10*3/uL (0.90-5.00); MCHC 33.8 g/dL (32.0-37.0); MCV 103.4 FL (80.0-97.0); Mean Platelet Volume 11.2 FL (9.5-12.2); Monocytes # (M) 0.35 X 10*3/uL (0.20-1.00); NRBC Per 100 WBC 0 X 10*3/uL (0.00-0.01); Neutrophils # (M) 4.67 X 10*3/uL (1.80-7.70); Neutrophils % (M) 79 %; Platelet Count 73 X 10*3/uL (140-440); RBC 2.03 X 10*6/uL (4.40-5.60); RDW 15.9 % (11.5-14.5); Rouleaux Present (Absent); WBC 5.91 X 10*3/uL (4.50-10.00)
[2024-06-19] MEDS: MAGNESIUM SULFATE-D5W PMX 1 GM in DEXTROSE/WATER 1 100ML.BAG IVPB SCH (18:08)
--- NOTE | 2024-06-19 20:13 | P.PN ---
Subjective Progress Note Date: 06/19/24 At today's visit patient tolerated half of his breakfast. States nausea vomiting has subsided. Denies abdominal pain. Reporting odynophagia. Patient still rather weak. Objective - Vital Signs Vital signs: Vital Signs Temp 97.8 F 06/19/24 07:02 Pulse 68 06/19/24 07:02 Resp 16 06/19/24 07:02 BP 108/63 06/19/24 07:02 Pulse Ox 100 06/19/24 07:02 FiO2 Intake & Output 06/18/24 06/19/24 06/19/24 18:59 06:59 18:59 Output Total 300 Balance -300 Weight 63.503 kg 63.503 kg 63.503 kg Output: Urine 300 - Constitutional General appearance: Present: no acute distress - EENT Eyes: Present: anicteric sclerae, EOMI ENT: Present: hard of hearing - Respiratory Details: breathing is even and unlabored - Cardiovascular Details: skin warm and dry - Gastrointestinal General gastrointestinal: Present: soft. Absent: tenderness - Integumentary Integumentary: Absent: cyanotic, jaundiced - Musculoskeletal Musculoskeletal: Present: generalized weakness - Psychiatric Psychiatric: Present: A&O x's 3 - Labs CBC & Chem 7: 06/19/24 06:36 06/19/24 06:36 Assessment and Plan (1) Head and neck cancer Current Visit: Yes Status: Acute Code(s): C76.0 - MALIGNANT NEOPLASM OF HEAD, FACE AND NECK SNOMED Code(s): 404730624 (2) Dehydration Current Visit: Yes Status: Acute Code(s): E86.0 - DEHYDRATION SNOMED Code(s): 43128920 (3) Weakness Current Visit: Yes Status: Acute Code(s): R53.1 - WEAKNESS SNOMED Code(s): 05897913 Plan: N/V/, dehydration: Patient presented the emergency room for complaints of weakness, nausea vomiting and decreased oral intake over the last couple days. -Creatinine 0.89, GFR greater than 90. -Patient has been started on IV hydration and antiemetics as needed -N/V subsided. Oral intake improving, eating 50% of meals. Still rather weak. C/o odynophagia. will start Kools solution Oropharync Carcinoma: -Oncology history as dictated in the HPI -Currently on concurrent chemo/RT -Cycle 1 of weekly cisplatin 40 mg/m was started on 05/10/2024 most recently completed cycle 4 on 06/14/2024. with 2/3 G-CSF given on 06/17. White counts adequate, no further G-CSF at this time -Treatment on hold until acutely recovered Case discussed with admitting team
[2024-06-19] MEDS: MAG HYDROX/AL HYDROX/SIMETH 30 ML, diphenhydrAMINE ELIXIR 75 MG, LIDOCAINE VISCOUS 2% 3... PO SCH (20:48)
[2024-06-20 10:41] LABS: HCT 20.6 % (39.6-50.0); HGB 7.3 g/dL (13.0-17.0); MCHC 35.4 g/dL (32.0-37.0); MCV 101.5 fL (80.0-97.0); Mean Platelet Volume 10.8 fL (9.5-12.2); RBC 2.03 10*6/uL (4.40-5.60); RDW 15.4 % (11.5-14.5); WBC 2.64 10*3/uL (4.50-10.00)
[2024-06-20 10:45] LABS: Platelet Count 69 10*3/uL (140-440)
[2024-06-20 11:02] LABS: African American GFR (CKD) >90 (>60 ml/min/1.73 sqM); Anion Gap 9 mmol/L; Blood Urea Nitrogen 12 mg/dL (9-20); Carbon Dioxide 26 mmol/L (22-30); Chloride 103 mmol/L (98-107); Glucose 148 mg/dL (74-99); Non-African American GFR(CKD) >90 (>60 ml/min/1.73 sqM); Potassium 3.2 mmol/L (3.5-5.1); Sodium 138 mmol/L (137-145)
[2024-06-20] MEDS ORDERED: Potassium Replacement Protocol 1 EACH MISC MISCELLANE PRN (12:23)
[2024-06-20] MEDS: POTASSIUM CHLORIDE ER 20 MEQ TAB.ER PO SCH (12:58)
--- NOTE | 2024-06-20 13:23 | P.CON ---
Consult Note - . 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 Yu. Surgery consulted for PEG tube placement. Review of Systems ROS Statement: Those systems with pertinent positive or pertinent negative responses have been documented in the HPI. Review of Systems: CONST: Denies fever EYES: Denies blurry vision ENT: Denies nasal congestion C/V: Denies Chest pain RESP: Denies shortness of breath GI: Denies abdominal pain : Denies dysuria SKIN: Denies rash. MSK: Denies joint pain. NEURO: Endorses general weakness ROS Other: All systems not noted in ROS Statement are negative. Past Medical History Past Medical History: Asthma, Cancer, CVA/TIA, Hearing Disorder / Deafness Additional Past Medical History / Comment(s): nerve damage, no deficits from stroke, pt is DEAF. Cancer treatment started 05/10/2024 History of Any Multi-Drug Resistant Organisms: None Reported Past Surgical History: Appendectomy Additional Past Surgical History / Comment(s): Abdominal surgery patient cannot recall., neck biopsy Past Anesthesia/Blood Transfusion Reactions: No Reported Reaction Past Psychological History: No Psychological Hx Reported Smoking Status: Former smoker Past Alcohol Use History: Occasional Past Drug Use History: None Reported General Exam - General Exam Comments Initial Comments: General: Appears in no acute distress. HEAD: Normal with no signs of head trauma. EYES: PERRLA, EOMI, conjunctiva normal, no discharge. ENT: Chronically deaf, Dry mucous membranes. No stridor. Tolerating secretions. RESPIRATORY: Clear breath sounds bilaterally. No wheezes, rales, or rhonchi. C/V: Regular rate and rhythm. S1 and S2 auscultated, no edema, peripheral pulses 2+ and intact throughout ABD: Abd is soft, nontender, nondistended EXT: Normal range of motion, no obvious deformity SKIN: No rashes or lesions observed on exposed skin. NEURO: Alert and oriented x 4. No focal deficits. 59 year old male with SCC of tonsil. Surgery consulted for PEG Tube Placement -Patient scheduled for PEG Tube Placement tomorrow -NPO/midnight Jj Beach DO [facility] [phone]
--- NOTE | 2024-06-20 15:06 | P.PN ---
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 Yu. Patient presented to the emergency department with a chief complaint of weakness and intractable nausea and vomiting. Patient states since last chemotherapy treatment he has progressively gotten weaker, with a decreased appetite, and intractable nausea and vomiting if he attempts to eat or drink anything. He also reports mild constipation stating he has not had a bowel movement in 3 days but also states he has not really ate or drank anything to have a bowel movement. He denies abdominal pain or discomfort. Reports overall just feeling very weak and tired. He denies having any fevers, chills, dysphagia, chest pain, palpitations, shortness of breath, cough or congestion, or experiencing any numbness/tingling/weakness/swelling in his extremities. Patient reports urinating without any difficulties or changes. Upon arrival to our facility, patient underwent evaluation in the emergency department. Vital signs upon arrival show blood pressure 142/81, heart rate 79, respiratory rate 20, temp 97.4 F, and SpO2 of 99% on room air. EKG completed showing normal sinus rhythm at 61 bpm. Chest X-ray negative for acute cardiopulmonary process. Labs completed and reviewed. Bicytopenia with hemoglobin of 9.5 and platelet count of 87 leukocytosis with WBC count of 12.70, neutrophils of 11.30, lymphocytes of 0.64. and immature granulocytes of 0.10. Coagulation profile showing low PTT of 21.6 otherwise normal findings. BMP showing hypokalemia with potassium of 3.4 and metabolic alkalosis with chloride of 96, bicarb of 31, and anion gap of 9. Blood glucose 111. Lactic acid was 1.3. Calcium 9.5. Magnesium 1.9. TSH 1.470. Influenza A, influenza B, RSV, and COVID PCR were negative. Patient admitted under our services with consultation to oncology, Physical Therapy, and Occupational Therapy at this time. Physical exam: Patient seen and fully evaluated at bedside this morning. Patient again with un controlled nausea and vomiting and unable to tolerate oral intake. Patient also very weak RN reports patient requiring assistance with minimal ambulation. Patient currently reports is feeling nauseous and weak. Patient discouraged as today is as birthday and was hoping to go home. Discussed with patient options and recommendations for PEG tube placement. Patient in agreement that he will need to remain hospitalized and undergo PEG tube placement. Vital signs reviewed and stable. General: Nontoxic, no distress and appears stated age. Thin build. Derm: Skin warm and dry, normal coloration for ethnicity. Head: Atraumatic, normocephalic and symmetric. Patient is deaf. Eyes: EOM's intact, no lid lag, and anicteric sclera Mouth: no lip lesions, mucus membranes moist Cardiovascular: regular rate and rhythm with normal S1S2, no murmur, positive posterior tibial pulses bilaterally, and cap refill < 2 seconds. Lungs: Respirations even, regular, and unlabored on room air. Lungs CTA paige aterally, no rhonchi, no rales, no wheezing, and no accessory muscle usage. Abdominal: soft, nontender to palpation, no guarding, no appreciable organomegaly Ext: ROM intact. No gross muscle atrophy, no edema, no contractures Neuro: Face symmetrical and CN II-XII grossly intact with no noted focal neuro deficits Psych: Alert and oriented to person, place, time, and situation. Appropriate and pleasant affect. Assessment and Plan of Care: Chemotherapy-induced nausea and vomiting Failure to thrive Generalized weakness, secondary to above Metabolic alkalosis, secondary to dehydration resulting from chemotherapy induced nausea and vomiting. Resolved with IV fluid hydration. Hypokalemia Pancytopenia -Oncology consulted, discussed plan of care with oncology ORDER DESK CALLER. In agreement with consult to general surgery for PEG tube placement. -General surgery consulted for PEG tube placement. -Continue gentle IV fluid hydration with 0.9% normal saline at 75 cc/h. -Compazine 10 mg IVP every 6 hours as needed for nausea. -GI prophylaxis with Protonix 40 mg IVP daily. -Potassium was replacement with K-Dur 20 mEq p.o. x 2 doses. -Will continue to monitor closely with repeat a.m. labs to monitor for resolution of hypokalemia as well as improvement of metabolic alkalosis -PT/OT consulted -Patient started on protein supplements 3 times daily between meals and consult placed to dietary for evaluation. -TSH 1.470. Constipation -Patient reports constipation with last bowel movement being 3 days ago but denies having any abdominal pain or discomfort. -KUB complete showing nonobstructive bowel gas pattern with moderate diffuse colonic stool burden suggesting constipation. -Patient started on daily bowel regimen with MiraLAX 17 g daily and Dulcolax 10 mg p.o. may be given daily as needed for continued constipation. Hypertension -Continue daily medication regimen with amlodipine 10 mg daily. Hyperlipidemia -Continue daily medication regimen with atorvastatin 40 mg nightly. Data and imaging reviewed: Morning labs reviewed. CBC showing pancytopenia with WBC count of 2.64, hemoglobin of 7.3, platelet count of 69. BMP showing hypokalemia with potassium of 3.2. Blood glucose 148. Vital signs reviewed. Blood pressure 109/67, heart rate 63, respiratory rate 15, temp 98.2 F, and SpO2 of 100% on room air CODE STATUS: Full code DVT prophylaxis: SCDs secondary to bicytopenia Discussed with: Patient, RN, and oncology ORDER DESK CALLER Anticipated discharge date: Pending clinical course Anticipated discharge place: Pending clinical course, likely home with home care Patient was seen independently by Nurse Practitioner. This document was prepared using [employer] dictation software. Please allow for errors in studio owner while rare they do occur. Nabeel Adan, ORDER DESK CALLER rendered care for this patient independently, reviewed the findings and plan as documented in the note above and agree with plan. I did not physically speak with or examine the patient on this date. Objective - Vital Signs Vital signs: Vital Signs Temp 98.2 F 06/20/24 07:44 Pulse 63 06/20/24 07:44 Resp 15 06/20/24 07:44 BP 109/67 06/20/24 07:44 Pulse Ox 100 06/20/24 07:44 FiO2 Intake & Output 06/19/24 06/20/24 06/20/24 18:59 06:59 18:59 Intake Total 1440 Output Total 1000 1900 Balance 440 -1900 Weight 63.503 kg Intake: Oral 1440 Output: Urine 1000 1900 - Labs CBC & Chem 7: 06/20/24 10:06 06/20/24 10:06 Labs: Abnormal Lab Results - Last 24 Hours (Table) 06/19/24 06/19/24 Range/Units 06:36 06:36 RBC 2.03 L (4.40-5.60) X 10*6/uL Hgb 7.1 L (13.0-17.0) g/dL Hct 21.0 L (39.6-50.0) % MCV 103.4 H (80.0-97.0) FL MCH 35.0 H (27.0-32.0) pg RDW 15.9 H (11.5-14.5) % Plt Count 73 L (140-440) X 10*3/uL Lymphocytes # (Manual) 0.83 L (0.90-5.00) X 10*3/uL Rouleaux Present A (Absent) Calcium 8.4 L (8.7-10.3) mg/dL Total Protein 5.0 L (6.2-8.2) g/dL Albumin 3.4 L (3.8-4.9) g/dL
[2024-06-20] MEDS: bisacodyL 5 MG TABLET.DR PO PRN (17:42)
--- NOTE | 2024-06-20 18:59 | P.PN ---
Subjective Progress Note Date: 06/20/24 At today's visit patient reporting increased nausea and epigastric pain with eating. Still feeling weak Objective - Vital Signs Vital signs: Vital Signs Temp 98.2 F 06/20/24 07:44 Pulse 63 06/20/24 07:44 Resp 15 06/20/24 07:44 BP 109/67 06/20/24 07:44 Pulse Ox 100 06/20/24 07:44 FiO2 Intake & Output 06/19/24 06/20/24 06/20/24 18:59 06:59 18:59 Intake Total 1440 480 Output Total 1000 1900 500 Balance 440 -1900 -20 Weight 63.503 kg Intake: Oral 1440 480 Output: Urine 1000 1900 500 - Constitutional General appearance: Present: no acute distress, thin - EENT Eyes: Present: anicteric sclerae, EOMI ENT: Present: hearing grossly normal - Respiratory Details: breathing is even and unlabored - Cardiovascular Details: skin warm and dry - Gastrointestinal General gastrointestinal: Present: soft, tenderness Localized gastrointestinal: tender: epigastric periumbilical - Integumentary Integumentary: Absent: cyanotic - Neurologic Neurologic: Present: CNII-XII intact - Psychiatric Psychiatric: Present: A&O x's 3 - Labs CBC & Chem 7: 06/20/24 10:06 06/20/24 10:06 Labs: Abnormal Lab Results - Last 24 Hours (Table) 06/19/24 06/19/24 06/20/24 Range/Units 06:36 06:36 10:06 WBC 2.64 L (4.50-10.00) 10*3/uL RBC 2.03 L 2.03 L (4.40-5.60) X 10*6/uL Hgb 7.1 L 7.3 L D (13.0-17.0) g/dL Hct 21.0 L 20.6 L (39.6-50.0) % MCV 103.4 H 101.5 H (80.0-97.0) FL MCH 35.0 H 36.0 H (27.0-32.0) pg RDW 15.9 H 15.4 H (11.5-14.5) % Plt Count 73 L 69 L (140-440) X 10*3/uL Lymphocytes # (Manual) 0.83 L (0.90-5.00) X 10*3/uL Rouleaux Present A (Absent) Potassium (3.5-5.1) mmol/L Glucose (74-99) mg/dL Calcium 8.4 L (8.7-10.3) mg/dL Total Protein 5.0 L (6.2-8.2) g/dL Albumin 3.4 L (3.8-4.9) g/dL 06/20/24 Range/Units 10:06 WBC (4.50-10.00) 10*3/uL RBC (4.40-5.60) X 10*6/uL Hgb (13.0-17.0) g/dL Hct (39.6-50.0) % MCV (80.0-97.0) FL MCH (27.0-32.0) pg RDW (11.5-14.5) % Plt Count (140-440) X 10*3/uL Lymphocytes # (Manual) (0.90-5.00) X 10*3/uL Rouleaux (Absent) Potassium 3.2 L (3.5-5.1) mmol/L Glucose 148 H (74-99) mg/dL Calcium (8.7-10.3) mg/dL Total Protein (6.2-8.2) g/dL Albumin (3.8-4.9) g/dL Assessment and Plan (1) Head and neck cancer Current Visit: Yes Status: Acute Code(s): C76.0 - MALIGNANT NEOPLASM OF HEAD, FACE AND NECK SNOMED Code(s): 873175784 (2) Dehydration Current Visit: Yes Status: Acute Code(s): E86.0 - DEHYDRATION SNOMED Code(s): 83525997 (3) Weakness Current Visit: Yes Status: Acute Code(s): R53.1 - WEAKNESS SNOMED Code(s): 51032854 Plan: N/V/, dehydration: Patient presented the emergency room for complaints of weakness, nausea vomiting and decreased oral intake over the last couple days. -Patient has been started on IV hydration and antiemetics as needed -Today experinecing increased nausea and epigastric discomfort. Will start pt on full liquid diet -C/o persisting odynophagia. Kools solution started. Continue supportive care measures -Pt still has treatment remaining, concern for worsening malnutrition. Case discussed with admitting tem. Will consult surgery for evaluation for Peg placement Oropharync Carcinoma: -Oncology history as dictated in the HPI -Currently on concurrent chemo/RT -Cycle 1 of weekly cisplatin 40 mg/m was started on 05/10/2024 most recently completed cycle 4 on 06/14/2024. with 2/3 G-CSF given on 06/17. White counts 2.6 today, no diff obtained. ANC 4.6 yesterday. Will obtain CBC w/ diff in the AM -Treatment on hold until acutely recovered
[2024-06-21 08:16] LABS: BUN/Creat Ratio 11.44 Ratio (12.00-20.00); Blood Urea Nitrogen 10.3 mg/dL (9.0-27.0); Calcium 8.9 mg/dL (8.7-10.3); Carbon Dioxide 28.1 mmol/L (21.6-31.8); Chloride 102 mmol/L (96-109); Glucose 102 mg/dL (70-110); Magnesium 1.2 mg/dL (1.5-2.4); Potassium 3.7 mmol/L (3.5-5.5); Sodium 141 mmol/L (135-145)
[2024-06-21 08:49] LABS: Basophils # (A) 0.01 X 10*3/uL (0.00-0.10); Basophils % (A) 0.2 %; Eosinophils # (A) 0.02 X 10*3/uL (0.04-0.35); Eosinophils % (A) 0.5 %; HCT 23.5 % (39.6-50.0); HGB 8.2 g/dL (13.0-17.0); Immature Platelet Fraction 4.6 % (1.1-6.1); Lymphocytes # (A) 0.47 X 10*3/uL (0.90-5.00); Lymphocytes % (A) 10.7 %; MCH 35.7 pg (27.0-32.0); MCHC 34.9 g/dL (32.0-37.0); MCV 102.2 FL (80.0-97.0); Mean Platelet Volume 11.3 FL (9.5-12.2); Monocytes # (A) 0.58 X 10*3/uL (0.20-1.00); Monocytes % (A) 13.2 %; NRBC Per 100 WBC 0 X 10*3/uL (0.00-0.01); Neutrophils # (A) 3.28 X 10*3/uL (1.80-7.70); Neutrophils % (A) 74.9 %; Platelet Count 70 X 10*3/uL (140-440); RDW 15.9 % (11.5-14.5); WBC 4.38 X 10*3/uL (4.50-10.00)
[2024-06-21] MEDS: PANTOPRAZOLE 40 MG TABLET PO SCH (08:57)
[2024-06-21] MEDS: MAGNESIUM SULFATE-D5W PMX 1 GM in DEXTROSE/WATER 1 100ML.BAG IVPB SCH (09:41)
[2024-06-21] MEDS ORDERED: LIDOCAINE 1% INJ 10MG/ML (20 ML MDV) ONE (12:15)
[2024-06-21] MEDS ORDERED: PROPOFOL 10 MG/ML 20 ML VIAL IV ONE (12:15)
[2024-06-21] MEDS: SODIUM CHLORIDE 0.9% 500 ML 500 ML IV ONE (12:33)
[2024-06-21] MEDS: MORPHINE SULFATE 4 MG/ML SYRINGE IV STA (13:15)
--- NOTE | 2024-06-21 15:14 | P.OP ---
Date of Procedure: 06/21/24 Preoperative Diagnosis: Tonsil Cancer Postoperative Diagnosis: Tonsil Cancer Procedure(s) Performed: EGD with PEG Tube Placement Anesthesia: MAC Surgeon: Jj Beach Pathology: none sent Condition: stable Disposition: PACU Description of Procedure: After risks, complications, and benefits were explained to the patient and informed consent was obtained, the patient was taken to the operating room. He was placed in the supine position. The area was prepped and draped in the sterile fashion. After adequate IV sedation was obtained by anesthesia, esophagogastroduodenoscopy was performed. The esophagus, stomach, and duodenum were visualized without difficulty. There was no gross evidence of any mal ignancy. There was no gastritis. The appropriate location was noted on the anterior wall of the stomach. This area was localized externally with 1% lidocaine. Large gauge needle was used to enter the lumen of the stomach under visualization. A guide wire was then passed again under visualization and the needle was subsequently removed. A scalpel was used to make a small incision, next to the guidewire and ensuring that the underlying fascia was nicked as well. A dilator with break-away sheath was then inserted over the guidewire and under direct visualization was seen to enter the lumen of the stomach without difficulty. The guidewire and dilator were then removed again under visualization and the PEG tube was placed through the break-away sheath and visualized within the lumen of the stomach. The bumper was noted to be flush on the stomach wall. Proper placement of the tube was ensured through visualization with a scope. Appropriate sterile dressing was applied.
--- NOTE | 2024-06-21 15:28 | CDI ---
Documentation Clarification Form Date: 06/21/2024 03:10:23 PM From: Anila Lima RN CDIS Phone: [phone] Admit Date: 06/18/2024 10:33:00 AM Patient Name: Carrillo De Visit Number: [id number] Discharge Date: ATTENTION: The Clinical Documentation Specialists (CDI) and [facility] Coding Staff appreciate your assistance in clarifying documentation. Please respond to the clarification below the line at the bottom and electronically sign. The CDI & [facility] Coding staff will review the response and follow-up if needed. Please note: Queries are made part of the Legal Health Record. If you have any questions, please contact the author of this message via ITS. Provider: Nabeel Adan Pancytopenia is documented 06/20, Medicine note. Additional clarification regarding the etiology of pancytopenia is requested. History/Risk factors: 58 year old male presents to the ED weakness nausea and vomiting. Medical history: Squamous cell tonsillar carcinoma currently undergoing radiation and chemotherapy treatment last treatment . Deafness, CVA, HTN, HLD and constipation. 06/20 Medicine note. Clinical indicators: Labs, 06/20: Wbc 2.64, Hgb 7.3, Platelet count 69 Treatment: Monitoring daily Wbc, Hgb, Platelet count Please clarify the etiology of pancytopenia, if known: [ X] Pancytopenia due to chemotherapy [ ] Pancytopenia due to other, please specify [ ] Other condition, please specify ____ [ ] Unable to determine (Template Last Revised: April 2020) MTDD
--- NOTE | 2024-06-21 16:08 | CDI ---
Documentation Clarification Form Date: 06/21/2024 03:42:42 PM From: Anila Lima Phone: [phone] Admit Date: 06/18/2024 10:33:00 AM Patient Name: Carrillo De Visit Number: [id number] Discharge Date: ATTENTION: The Clinical Documentation Specialists (CDI) and [facility] Coding Staff appreciate your assistance in clarifying documentation. Please respond to the clarification below the line at the bottom and electronically sign. The CDI & [facility] Coding staff will review the response and follow-up if needed. Please note: Queries are made part of the Legal Health Record. If you have any questions, please contact the author of this message via ITS. Provider: Nabeel GARCIA Malnutrition is documented 06/20, Oncology note. Additional clarification regarding the severity of malnutrition is requested. History/Risk factors: 58 year old male presents to the ED weakness nausea and vomiting. Medical history: Squamous cell tonsillar carcinoma currently undergoing radiation and chemotherapy treatment last treatment . Deafness, CVA, HTN, Asthma, HLD and constipation. 06/20 Medicine note. Clinical Indicators: Medicine note 06/20: Generalized weakness secondary to chemotherapy induced nausea and vomiting and failure to thrive. No gross muscle atrophy, no edema, no contractures, Thin build. Current BMI: 20.7 Registered Dietitian Assessment 06/20/2024: NPO, missing teeth, poor appetite related to nausea and vomiting. Under weight. Wgt 63.503kg Hgt 5tt 9in BMI 20.7. Inadequate energy intake 2/2 poor appetite 2/2 cancer, N/V as evidenced by <75% of EEN being met. Treatment: Registered Dietitian Consultation Oral Nutrition Supplement(s): Ensure clear TID, diet downgraded to clear liquid, possible To offer additional magic cup or ONS. Per EMR patient started feeling week over the last Couple of days. Pending Peg Tube for nutritional support. Please clarify the severity of malnutrition, if known: [ ] Moderate Protein-Calorie Malnutrition [X ] Severe Protein-Calorie Malnutrition [ ] Malnutrition, unknown severity [ ] Other condition, please specify [ ] Unable to Determine Reference: Using the ASPEN Guidelines, Undernutrition (Malnutrition) is characterized by at least two of the following six findings. The severity can be determined based on the criteria listed below. Malnutrition Characteristics for Moderate and Severe Malnutrition Type of Malnutrition Acute Illness or Injury Chronic Illness Degree of Malnutrition Non-severe (moderate) Malnutrition Severe Malnutrition Non-severe (moderate) Malnutrition Severe Malnutrition Energy Intake <75% for >7 days = 50% for = 5 days <75% for = 1 month =75% for = 1 month Weight Loss 1-2% in one week, 5% in 1 month, 7.5% in 3 months 2% in one week, >5% in 1 month, >7.5% in 3 months 5% in one month, 7.5% in 3 months, 10% in 6 months, 20% in 1 year >5% in one month, >7.5% in 3 months, >10% in 6 months, >20% in 1 year Body Fat Wasting Mild Moderate Mild Severe Muscle Wasting Mild Moderate Mild Severe Presence of Edema Mild Moderate to Severe Mild Severe Car Shagger Strength Not applicable Measurably Reduced Not applicable Measurably Reduced Source: Biju VidalV, Duncan P, Carlos G, et al. Consensus statement: Academy of Nutrition and Dietetics and [place] Society for Parenteral and Enteral Nutrition: characteristics recommended for the identification and documentation of adult malnutrition (undernutrition).JPEN J Parenter Enteral Nutr. 2012;36(3):275-283. (Template Last Revised: August 2022) MTDD
--- NOTE | 2024-06-21 17:02 | P.PN ---
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 Yu. Patient presented to the emergency department with a chief complaint of weakness and intractable nausea and vomiting. Patient states since last chemotherapy treatment he has progressively gotten weaker, with a decreased appetite, and intractable nausea and vomiting if he attempts to eat or drink anything. He also reports mild constipation stating he has not had a bowel movement in 3 days but also states he has not really ate or drank anything to have a bowel movement. He denies abdominal pain or discomfort. Reports overall just feeling very weak and tired. He denies having any fevers, chills, dysphagia, chest pain, palpitations, shortness of breath, cough or congestion, or experiencing any numbness/tingling/weakness/swelling in his extremities. Patient reports urinating without any difficulties or changes. Upon arrival to our facility, patient underwent evaluation in the emergency department. Vital signs upon arrival show blood pressure 142/81, heart rate 79, respiratory rate 20, temp 97.4 F, and SpO2 of 99% on room air. EKG completed showing normal sinus rhythm at 61 bpm. Chest X-ray negative for acute cardiopulmonary process. Labs completed and reviewed. Bicytopenia with hemoglobin of 9.5 and platelet count of 87 leukocytosis with WBC count of 12.70, neutrophils of 11.30, lymphocytes of 0.64. and immature granulocytes of 0.10. Coagulation profile showing low PTT of 21.6 otherwise normal findings. BMP showing hypokalemia with potassium of 3.4 and metabolic alkalosis with chloride of 96, bicarb of 31, and anion gap of 9. Blood glucose 111. Lactic acid was 1.3. Calcium 9.5. Magnesium 1.9. TSH 1.470. Influenza A, influenza B, RSV, and COVID PCR were negative. Patient admitted under our services with consultation to oncology, Physical Therapy, and Occupational Therapy at this time. Physical exam: Patient seen and fully evaluated at bedside this morning. He currently reports nausea is controlled. Denies any further episodes of vomiting. Reports resolution of constipation. He is awaiting to be taken down for PEG tube placement at 3 PM. Patient visiting with family at bedside. Vital signs reviewed and stable. General: Nontoxic, no distress and appears stated age. Thin build. Derm: Skin warm and dry, normal coloration for ethnicity. Head: Atraumatic, normocephalic and symmetric. Patient is deaf. Eyes: EOM's intact, no lid lag, and anicteric sclera Mouth: no lip lesions, mucus membranes moist Cardiovascular: regular rate and rhythm with normal S1S2, no murmur, positive posterior tibial pulses bilaterally, and cap refill < 2 seconds. Lungs: Respirations even, regular, and unlabored on room air. Lungs CTA bilaterally, no rhonchi, no rales, no wheezing, and no accessory muscle usage. Abdominal: soft, nontender to palpation, no guarding, no appreciable or ganomegaly Ext: ROM intact. No gross muscle atrophy, no edema, no contractures Neuro: Face symmetrical and CN II-XII grossly intact with no noted focal neuro deficits Psych: Alert and oriented to person, place, time, and situation. Appropriate and pleasant affect. Assessment and Plan of Care: Chemotherapy-induced nausea and vomiting Failure to thrive Generalized weakness, secondary to above Metabolic alkalosis, secondary to dehydration resulting from chemotherapy induced nausea and vomiting. Resolved with IV fluid hydration. Hypokalemia Hypomagnesemia Pancytopenia, chemotherapy-induced -Oncology consulted, discussed plan of care with oncology SPRING LAYER. In agreement with consult to general surgery for PEG tube placement. -General surgery consulted for PEG tube placement. -Continue gentle IV fluid hydration with 0.9% normal saline at 75 cc/h. -Compazine 10 mg IVP every 6 hours as needed for nausea. -GI prophylaxis with Protonix 40 mg IVP daily. -Magnesium replaced with magnesium sulfate 2 g IVPB -Will continue to monitor closely with repeat a.m. labs to monitor for resolution of hypokalemia as well as improvement of metabolic alkalosis -PT/OT following Severe protein calorie malnutrition -Patient initially started on protein supplements 3 times daily between meals, however secondary to persistent inability to tolerate oral intake in chemotherapy-induced nausea and vomiting patient is scheduled for PEG tube placement later today. Constipation, resolved -KUB complete showing nonobstructive bowel gas pattern with moderate diffuse colonic stool burden suggesting constipation. -Continue MiraLAX 17 g daily and Dulcolax 10 mg p.o. may be given daily as needed for continued constipation. Hypertension -Continue daily medication regimen with amlodipine 10 mg daily. Hyperlipidemia -Continue daily medication regimen with atorvastatin 40 mg nightly. Data and imaging reviewed: Morning labs reviewed. CBC showing pancytopenia with WBC count of 4.38, hemoglobin 8.2, platelet count of 70. BMP unremarkable. Magnesium low at 1.2. Vital signs reviewed. Blood pressure 100/67, heart rate 71, respiratory rate 19, temp 97.7 F, and SpO2 100% on room air. CODE STATUS: Full code DVT prophylaxis: SCDs secondary to pancytopenia Discussed with: Patient, RN, general surgery PA and oncology SPRING LAYER Anticipated discharge date: Pending clinical course Anticipated discharge place: Pending clinical course, likely home with home care Patient was seen independently by Nurse Practitioner. This document was prepared using [employer] dictation software. Please allow for errors in channel process plant operator while rare they do occur. Nabeel Adan NP rendered care for this patient independently, reviewed the fin dings and plan as documented in the note above and agree with plan. I did not physically speak with or examine the patient on this date. Objective - Vital Signs Vital signs: Vital Signs Temp 97.7 F 06/21/24 07:38 Pulse 71 06/21/24 07:38 Resp 19 06/21/24 07:38 BP 100/64 06/21/24 07:38 Pulse Ox 100 06/21/24 07:38 FiO2 Intake & Output 06/20/24 06/21/24 06/21/24 18:59 06:59 18:59 Intake Total 480 Output Total 900 400 Balance -420 -400 Intake: Oral 480 Output: Urine 900 400 Other: # Voids 1 # Bowel Movements 1 - Labs CBC & Chem 7: 06/21/24 03:55 06/21/24 03:55 Labs: Abnormal Lab Results - Last 24 Hours (Table) 06/20/24 06/20/24 06/21/24 Range/Units 10:06 10:06 03:55 WBC 2.64 L 4.38 L (4.50-10.00) 10*3/uL RBC 2.03 L 2.30 L (4.40-5.60) 10*6/uL Hgb 7.3 L D 8.2 L (13.0-17.0) g/dL Hct 20.6 L 23.5 L (39.6-50.0) % MCV 101.5 H 102.2 H (80.0-97.0) fL MCH 36.0 H 35.7 H (27.0-32.0) pg RDW 15.4 H 15.9 H (11.5-14.5) % Plt Count 69 L 70 L (140-440) 10*3/uL Lymphocytes # 0.47 L (0.90-5.00) X 10*3/uL Eosinophils # 0.02 L (0.04-0.35) X 10*3/uL Potassium 3.2 L (3.5-5.1) mmol/L BUN/Creatinine Ratio (12.00-20.00) Ratio Glucose 148 H (74-99) mg/dL Magnesium (1.5-2.4) mg/dL 06/21/24 Range/Units 03:55 WBC (4.50-10.00) 10*3/uL RBC (4.40-5.60) 10*6/uL Hgb (13.0-17.0) g/dL Hct (39.6-50.0) % MCV (80.0-97.0) fL MCH (27.0-32.0) pg RDW (11.5-14.5) % Plt Count (140-440) 10*3/uL Lymphocytes # (0.90-5.00) X 10*3/uL Eosinophils # (0.04-0.35) X 10*3/uL Potassium (3.5-5.1) mmol/L BUN/Creatinine Ratio 11.44 L (12.00-20.00) Ratio Glucose (74-99) mg/dL Magnesium 1.2 L (1.5-2.4) mg/dL
[2024-06-21] MEDS ORDERED: HYDROcodone/APAP 5-325MG 1 EACH TAB PO PRN (20:47)
[2024-06-21] MEDS: HYDROcodone/APAP 5-325MG 1 EACH TAB PO PRN (21:55)
[2024-06-22] MEDS: MORPHINE SULFATE 2 MG/ML SYRINGE IVP PRN (04:23)
[2024-06-22] MEDS: CYCLOBENZAPRINE 5 MG TAB PO PRN (07:57)
[2024-06-22 08:37] LABS: Calcium 8.5 mg/dL (8.7-10.3); Carbon Dioxide 27.9 mmol/L (21.6-31.8); Chloride 103 mmol/L (96-109); Glucose 97 mg/dL (70-110); Magnesium 1.4 mg/dL (1.5-2.4); Potassium 3.9 mmol/L (3.5-5.5); Sodium 140 mmol/L (135-145)
[2024-06-22 09:03] LABS: HCT 22.4 % (39.6-50.0); HGB 7.8 g/dL (13.0-17.0); Immature Platelet Fraction 6.2 % (1.1-6.1); MCH 35.6 pg (27.0-32.0); MCHC 34.8 g/dL (32.0-37.0); MCV 102.3 FL (80.0-97.0); Mean Platelet Volume 11.4 FL (9.5-12.2); NRBC Per 100 WBC 0 X 10*3/uL (0.00-0.01); Platelet Count 57 X 10*3/uL (140-440); RBC 2.19 X 10*6/uL (4.40-5.60); RDW 15.5 % (11.5-14.5); WBC 3.79 X 10*3/uL (4.50-10.00)
[2024-06-22] MEDS ORDERED: Magnesium Replacement Protocol 1 EACH MISC MISCELLANE PRN (10:47)
[2024-06-22] MEDS: MAGNESIUM SULFATE-D5W PMX 1 GM in DEXTROSE/WATER 1 100ML.BAG IVPB SCH (11:29)
--- NOTE | 2024-06-22 13:56 | P.PN ---
Subjective Progress Note Date: 06/22/24 SURGICAL PROGRESS NOTE CHIEF COMPLAINT: Tonsil cancer HISTORY OF PRESENT ILLNESS: Postop day #1 status post PEG tube placement. Patient does complain of some pain around PEG tube site. His pain is contr olled. Denies any nausea or vomiting. Tube feeds to be started today. Afebrile. PHYSICAL EXAM: VITAL SIGNS: Reviewed. GENERAL: in no acute distress. Deaf. ABDOMEN: Soft. Nondistended. Mild tenderness around PEG tube site. PEG tube site clean dry and intact. NEUROLOGIC: Alert and oriented. Cranial nerves II through XII grossly intact. ASSESSMENT: 1. Oropharynx carcinoma PLAN: - Dietitian consulted to start tube feeds today - Continue supportive care Physician Director Perioperative note has been reviewed by physician. Signing provider agrees with the documented findings, assessment, and plan of care. Objective - Vital Signs Vital signs: Vital Signs Temp 98.4 F 06/22/24 13:09 Pulse 70 06/22/24 13:09 Resp 16 06/22/24 13:09 BP 104/66 06/22/24 13:09 Pulse Ox 97 06/22/24 13:09 FiO2 Intake & Output 06/21/24 06/22/24 06/22/24 18:59 06:59 18:59 Intake Total 40 Output Total 550 450 950 Balance -510 -450 -950 Weight 63.503 kg 59.874 kg Intake: IV 40 Output: Urine 550 450 950 Other: # Voids 1 - Labs CBC & Chem 7: 06/22/24 04:07 06/22/24 04:07 Labs: Abnormal Lab Results - Last 24 Hours (Table) 06/22/24 06/22/24 Range/Units 04:07 04:07 WBC 3.79 L (4.50-10.00) X 10*3/uL RBC 2.19 L (4.40-5.60) X 10*6/uL Hgb 7.8 L (13.0-17.0) g/dL Hct 22.4 L (39.6-50.0) % MCV 102.3 H (80.0-97.0) FL MCH 35.6 H (27.0-32.0) pg RDW 15.5 H (11.5-14.5) % Plt Count 57 L (140-440) X 10*3/uL Immature Plt Fraction 6.2 H (1.1-6.1) % BUN/Creatinine Ratio 10.00 L (12.00-20.00) Ratio Calcium 8.5 L (8.7-10.3) mg/dL Magnesium 1.4 L (1.5-2.4) mg/dL
--- NOTE | 2024-06-22 15:45 | P.PN ---
Subjective Progress Note Date: 06/22/24 Principal diagnosis: Head/Neck SCC, chemo/XRT. Dysphagia 2/2 treatment Pt doing well today in f/u, discomfort at PEG insertion site but no overt, uncontrolled pain. He is reporting intermittent cramping in hands, feet and legs, likely due to poor nutrition. No other acute c/o. Objective - Vital Signs Vital signs: Vital Signs Temp 98.4 F 06/22/24 13:09 Pulse 70 06/22/24 13:09 Resp 16 06/22/24 13:09 BP 104/66 06/22/24 13:09 Pulse Ox 97 06/22/24 13:09 FiO2 Intake & Output 06/21/24 06/22/24 06/22/24 18:59 06:59 18:59 Intake Total 40 Output Total 550 450 950 Balance -510 -450 -950 Weight 63.503 kg 59.874 kg Intake: IV 40 Output: Urine 550 450 950 Other: # Voids 1 - Constitutional General appearance: Present: cooperative, no acute distress, thin - EENT Eyes: Present: anicteric sclerae, EOMI ENT: Present: hearing grossly normal - Neck Details: left anterior cervical mass significantly reduced in size, 2cm, very soft Neck: Present: lymphadenopathy - Respiratory Respiratory: bilateral: CTA - Cardiovascular Rhythm: regular - Peripheral edema leg Peripheral Edema: bilateral: None - Gastrointestinal General gastrointestinal: Present: hyperactive bowel sounds, soft - Integumentary Integumentary: Present: normal - Neurologic Neurologic: Present: CNII-XII intact - Psychiatric Psychiatric: Present: A&O x's 3, appropriate affect, intact judgment & insight - Labs CBC & Chem 7: 06/22/24 04:07 06/22/24 04:07 Labs: Abnormal Lab Results - Last 24 Hours (Table) 06/22/24 06/22/24 Range/Units 04:07 04:07 WBC 3.79 L (4.50-10.00) X 10*3/uL RBC 2.19 L (4.40-5.60) X 10*6/uL Hgb 7.8 L (13.0-17.0) g/dL Hct 22.4 L (39.6-50.0) % MCV 102.3 H (80.0-97.0) FL MCH 35.6 H (27.0-32.0) pg RDW 15.5 H (11.5-14.5) % Plt Count 57 L (140-440) X 10*3/uL Immature Plt Fraction 6.2 H (1.1-6.1) % BUN/Creatinine Ratio 10.00 L (12.00-20.00) Ratio Calcium 8.5 L (8.7-10.3) mg/dL Magnesium 1.4 L (1.5-2.4) mg/dL Assessment and Plan (1) Dysphagia Current Visit: Yes Status: Acute Priority: High Code(s): R13.10 - DYSPHAGIA, UNSPECIFIED SNOMED Code(s): 67559685 (2) Odynophagia Current Visit: Yes Status: Acute Priority: High Code(s): R13.10 - DYSPH AGIA, UNSPECIFIED SNOMED Code(s): 65425088 (3) Dehydration Current Visit: Yes Status: Acute Priority: High Code(s): E86.0 - DEHYDRATION SNOMED Code(s): 93434396 (4) Head and neck cancer Current Visit: Yes Status: Acute Priority: Medium Code(s): C76.0 - MALIGNANT NEOPLASM OF HEAD, FACE AND NECK SNOMED Code(s): 254465213 Plan: Dysphagia and odynophagia secondary to treatment of head and neck cancer - Admitted with weakness and dehydration because of painful swallowing and dysphagia sequela of concurrent chemoradiation. - PEG tube placed for nutritional support. - Tube feeds are supposed to start today. Head and neck squamous cell carcinoma - Diagnosis and treatment as reported and consult - There has been a significant reduction in the size, as well as the feel, of the tumor on the left neck - Will resume treatment as soon as patient is tolerating tube feedings and discharged from the hospital
--- NOTE | 2024-06-22 17:40 | P.PN ---
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 Yu. Patient presented to the emergency department with a chief complaint of weakness and intractable nausea and vomiting. Patient states since last chemotherapy treatment he has progressively gotten weaker, with a decreased appetite, and intractable nausea and vomiting if he attempts to eat or drink anything. He also reports mild constipation stating he has not had a bowel movement in 3 days but also states he has not really ate or drank anything to have a bowel movement. He denies abdominal pain or discomfort. Reports overall just feeling very weak and tired. He denies having any fevers, chills, dysphagia, chest pain, palpitations, shortness of breath, cough or congestion, or experiencing any numbness/tingling/weakness/swelling in his extremities. Patient reports urinating without any difficulties or changes. Upon arrival to our facility, patient underwent evaluation in the emergency department. Vital signs upon arrival show blood pressure 142/81, heart rate 79, respiratory rate 20, temp 97.4 F, and SpO2 of 99% on room air. EKG completed showing normal sinus rhythm at 61 bpm. Chest X-ray negative for acute cardiopulmonary process. Labs completed and reviewed. Bicytopenia with hemoglobin of 9.5 and platelet count of 87 leukocytosis with WBC count of 12.70, neutrophils of 11.30, lymphocytes of 0.64. and immature granulocytes of 0.10. Coagulation profile showing low PTT of 21.6 otherwise normal findings. BMP showing hypokalemia with potassium of 3.4 and metabolic alkalosis with chloride of 96, bicarb of 31, and anion gap of 9. Blood glucose 111. Lactic acid was 1.3. Calcium 9.5. Magnesium 1.9. TSH 1.470. Influenza A, influenza B, RSV, and COVID PCR were negative. Patient admitted under our services with consultation to oncology, Physical Therapy, and Occupational Therapy at this time. Physical exam: Patient seen and fully evaluated at bedside this morning. He is day 1 postop PE G tube placement. General surgery consulted dietary to begin PEG tube feedings later today. Patient reports moderate postoperative pain worse with movement. He currently denies having any nausea or vomiting. Reports last bowel movement 06/20/2024. Vital signs reviewed and stable. General: Nontoxic, no distress and appears stated age. Thin build. Derm: Skin warm and dry, normal coloration for ethnicity. Head: Atraumatic, normocephalic and symmetric. Patient is deaf. Eyes: EOM's intact, no lid lag, and anicteric sclera Mouth: no lip lesions, mucus membranes moist Cardiovascular: regular rate and rhythm with normal S1S2, no murmur, positive posterior tibial pulses bilaterally, and cap refill < 2 seconds. Lungs: Respirations even, regular, and unlabored on room air. Lungs CTA bilatera lly, no rhonchi, no rales, no wheezing, and no accessory muscle usage. Abdominal: soft, nontender to palpation, no guarding, no appreciable organomegaly Ext: ROM intact. No gross muscle atrophy, no edema, no contractures Neuro: Face symmetrical and CN II-XII grossly intact with no noted focal neuro deficits Psych: Alert and oriented to person, place, time, and situation. Appropriate and pleasant affect. Assessment and Plan of Care: Chemotherapy-induced nausea and vomiting Failure to thrive Generalized weakness, secondary to above Metabolic alkalosis, secondary to dehydration resulting from chemotherapy induced nausea and vomiting. Resolved with IV fluid hydration. Hypokalemia Hypomagnesemia Pancytopenia, chemotherapy-induced -Oncology consulted, discussed plan of care with oncology TICKET WORKER. -General surgery following and took patient for PEG tube placement on 06/21/2024. -Continue gentle IV fluid hydration with 0.9% normal saline at 75 cc/h, IV fluids may be discontinued once PEG tube feedings are initiated. -Compazine 10 mg IVP every 6 hours as needed for nausea. -GI prophylaxis with Protonix 40 mg IVP daily. -Magnesium replaced with magnesium sulfate 2 g IVPB -Will continue to monitor closely with repeat a.m. labs to monitor for resolution of hypokalemia as well as improvement of metabolic alkalosis -PT/OT following Severe protein calorie malnutrition -Patient i underwent PEG tube placement on 10/22/2024. Dietitian was consulted to begin PEG tube feedings later today. Constipation, resolved -KUB complete showing nonobstructive bowel gas pattern with moderate diffuse colonic stool burden suggesting constipation. -Continue MiraLAX 17 g daily and Dulcolax 10 mg p.o. may be given daily as needed for continued constipation. Hypertension -Continue daily medication regimen with amlodipine 10 mg daily. Hyperlipidemia -Continue daily medication regimen with atorvastatin 40 mg nightly. Data and imaging reviewed: Morning labs reviewed. CBC showing pancytopenia with WBC count of 3.79, hemoglobin of 7.8, platelet count of 57. BMP remains unremarkable. Blood glucose was 97. Magnesium was low at 1.4 and orders placed for 2 g magnesium sulfate IVPB. Vital signs reviewed. Blood pressure 100/67, heart rate 71, respiratory rate 19, temp 97.7 F, and SpO2 100% on room air. CODE STATUS: Full code DVT prophylaxis: SCDs secondary to pancytopenia Discussed with: Patient, RN, general surgery PA and oncology TICKET WORKER Anticipated discharge date: Pending clinical course Anticipated discharge place: Pending clinical course, likely home with home care Patient was seen independently by Nurse Practitioner. This document was prepared using [employer] dictation software. Please allow for errors in milk handler while rare they do occur. Nabeel Adan, IRVIN rendered care for this patient independently, reviewed the findings and plan as documented in the note above and agree with plan. I did not physically speak with or examine the patient on this date. Objective - Vital Signs Vital signs: Vital Signs Temp 98.1 F 06/22/24 08:00 Pulse 67 06/22/24 08:00 Resp 16 06/22/24 08:00 BP 115/76 06/22/24 08:00 Pulse Ox 97 06/22/24 08:00 FiO2 Intake & Output 06/21/24 06/22/24 06/22/24 18:59 06:59 18:59 Intake Total 40 Output Total 550 450 700 Balance -510 -450 -700 Weight 63.503 kg 59.874 kg Intake: IV 40 Output: Urine 550 450 700 Other: # Voids 1 - Labs CBC & Chem 7: 06/22/24 04:07 06/22/24 04:07 Labs: Abnormal Lab Results - Last 24 Hours (Table) 06/22/24 06/22/24 Range/Units 04:07 04:07 WBC 3.79 L (4.50-10.00) X 10*3/uL RBC 2.19 L (4.40-5.60) X 10*6/uL Hgb 7.8 L (13.0-17.0) g/dL Hct 22.4 L (39.6-50.0) % MCV 102.3 H (80.0-97.0) FL MCH 35.6 H (27.0-32.0) pg RDW 15.5 H (11.5-14.5) % Plt Count 57 L (140-440) X 10*3/uL Immature Plt Fraction 6.2 H (1.1-6.1) % BUN/Creatinine Ratio 10.00 L (12.00-20.00) Ratio Calcium 8.5 L (8.7-10.3) mg/dL Magnesium 1.4 L (1.5-2.4) mg/dL
[2024-06-22 17:58] LABS: Glucose,Whole Blood 149 mg/dL (70-110)
[2024-06-22] MEDS: ONDANSETRON 4 MG/2 ML VIAL IVP PRN (18:46)
[2024-06-22 23:36] LABS: Glucose,Whole Blood 133 mg/dL (70-110)
[2024-06-23 05:45] LABS: Glucose,Whole Blood 128 mg/dL (70-110)
[2024-06-23 08:47] LABS: BUN/Creat Ratio 11.18 Ratio (12.00-20.00); Blood Urea Nitrogen 12.3 mg/dL (9.0-27.0); Calcium 8.2 mg/dL (8.7-10.3); Carbon Dioxide 30.3 mmol/L (21.6-31.8); Chloride 103 mmol/L (96-109); Glucose 120 mg/dL (70-110); HCT 18.8 % (39.6-50.0); HGB 6.5 g/dL (13.0-17.0); Immature Platelet Fraction 6.9 % (1.1-6.1); MCH 35.1 pg (27.0-32.0); MCHC 34.6 g/dL (32.0-37.0); MCV 101.6 FL (80.0-97.0); Magnesium 1.7 mg/dL (1.5-2.4); NRBC Per 100 WBC 0 X 10*3/uL (0.00-0.01); Platelet Count 54 X 10*3/uL (140-440); Potassium 3.6 mmol/L (3.5-5.5); RBC 1.85 X 10*6/uL (4.40-5.60); RDW 15.5 % (11.5-14.5); Sodium 140 mmol/L (135-145); WBC 4.19 X 10*3/uL (4.50-10.00)
[2024-06-23] MEDS: MAGNESIUM SULFATE-D5W PMX 1 GM in DEXTROSE/WATER 1 100ML.BAG IVPB SCH (09:13)
--- NOTE | 2024-06-23 11:12 | P.PN ---
Subjective Progress Note Date: 06/23/24 SURGICAL PROGRESS NOTE CHIEF COMPLAINT: Tonsil cancer HISTORY OF PRESENT ILLNESS: Postop day #2 status post PEG tube placement. Patient is tolerating tube feeds. Tube feeds are currently at 20 mL/h. He does report a little pain around the PEG tube site. Afebrile. WBC 4.19 Hgb 7.8 down to 6.5 platelets 54 PHYSICAL EXAM: VITAL SIGNS: Reviewed. GENERAL: in no acute distress. Deaf. ABDOMEN: Soft. Nondistended. Mild tenderness around PEG tube site. PEG tube site clean dry and intact. NEUROLOGIC: Alert and oriented. Cranial nerves II through XII grossly intact. ASSESSMENT: 1. Oropharynx carcinoma PLAN: -Patient scheduled for 1 unit of blood for hemoglobin of 6.5 -Continue to advance tube feeds as tolerated Physician Power Press Tender note has been reviewed by physician. Signing provider agrees with the documented findings, assessment, and plan of care. Objective - Vital Signs Vital signs: Vital Signs Temp 98.3 F 06/23/24 07:32 Pulse 72 06/23/24 07:32 Resp 18 06/23/24 07:32 BP 100/66 06/23/24 07:32 Pulse Ox 100 06/23/24 07:32 FiO2 Intake & Output 06/22/24 06/23/24 06/23/24 18:59 06:59 18:59 Output Total 1450 450 700 Balance -1450 -450 -700 Weight 60.3 kg Output: Urine 1450 450 700 Other: Voiding Method Urinal Urinal - Labs CBC & Chem 7: 06/23/24 05:20 06/23/24 05:20 Labs: Abnormal Lab Results - Last 24 Hours (Table) 06/22/24 06/22/24 06/23/24 Range/Units 17:56 23:32 05:20 WBC (4.50-10.00) X 10*3/uL RBC (4.40-5.60) X 10*6/uL Hgb (13.0-17.0) g/dL Hct (39.6-50.0) % MCV (80.0-97.0) FL MCH (27.0-32.0) pg RDW (11.5-14.5) % Plt Count (140-440) X 10*3/uL Immature Plt Fraction (1.1-6.1) % BUN/Creatinine Ratio 11.18 L (12.00-20.00) Ratio Glucose 120 H (70-110) mg/dL POC Glucose (mg/dL) 149 H 133 H (70-110) mg/dL Calcium 8.2 L (8.7-10.3) mg/dL 06/23/24 06/23/24 Range/Units 05:20 05:43 WBC 4.19 L (4.50-10.00) X 10*3/uL RBC 1.85 L (4.40-5.60) X 10*6/uL Hgb 6.5 A* (13.0-17.0) g/dL Hct 18.8 A* (39.6-50.0) % MCV 101.6 H (80.0-97.0) FL MCH 35.1 H (27.0-32.0) pg RDW 15.5 H (11.5-14.5) % Plt Count 54 L (140-440) X 10*3/uL Immature Plt Fraction 6.9 H (1.1-6.1) % BUN/Creatinine Ratio (12.00-20.00) Ratio Glucose (70-110) mg/dL POC Glucose (mg/dL) 128 H (70-110) mg/dL Calcium (8.7-10.3) mg/dL
[2024-06-23 12:06] LABS: Glucose,Whole Blood 145 mg/dL (70-110)
--- NOTE | 2024-06-23 16:54 | P.PN ---
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 Yu. Patient presented to the emergency department with a chief complaint of weakness and intractable nausea and vomiting. Patient states since last chemotherapy treatment he has progressively gotten weaker, with a decreased appetite, and intractable nausea and vomiting if he attempts to eat or drink anything. He also reports mild constipation stating he has not had a bowel movement in 3 days but also states he has not really ate or drank anything to have a bowel movement. He denies abdominal pain or discomfort. Reports overall just feeling very weak and tired. He denies having any fevers, chills, dysphagia, chest pain, palpitations, shortness of breath, cough or congestion, or experiencing any numbness/tingling/weakness/swelling in his extremities. Patient reports urinating without any difficulties or changes. Upon arrival to our facility, patient underwent evaluation in the emergency department. Vital signs upon arrival show blood pressure 142/81, heart rate 79, respiratory rate 20, temp 97.4 F, and SpO2 of 99% on room air. EKG completed showing normal sinus rhythm at 61 bpm. Chest X-ray negative for acute cardiopulmonary process. Labs completed and reviewed. Bicytopenia with hemoglobin of 9.5 and platelet count of 87 leukocytosis with WBC count of 12.70, neutrophils of 11.30, lymphocytes of 0.64. and immature granulocytes of 0.10. Coagulation profile showing low PTT of 21.6 otherwise normal findings. BMP showing hypokalemia with potassium of 3.4 and metabolic alkalosis with chloride of 96, bicarb of 31, and anion gap of 9. Blood glucose 111. Lactic acid was 1.3. Calcium 9.5. Magnesium 1.9. TSH 1.470. Influenza A, influenza B, RSV, and COVID PCR were negative. Patient admitted under our services with consultation to oncology, Physical Therapy, and Occupational Therapy at this time. Physical exam: Patient seen and fully evaluated at bedside this morning. He is day 2 postop P EG tube placement. He reports continued abdominal pain/discomfort to PEG tube insertion site but otherwise denies any complaints at this time. He denies any nausea or vomiting. Reports last BM being 2 days ago. Vital signs reviewed and stable. General: Nontoxic, no distress and appears stated age. Thin build. Derm: Skin warm and dry, normal coloration for ethnicity. Head: Atraumatic, normocephalic and symmetric. Patient is deaf. Eyes: EOM's intact, no lid lag, and anicteric sclera Mouth: no lip lesions, mucus membranes moist Cardiovascular: regular rate and rhythm with normal S1S2, no murmur, positive posterior tibial pulses bilaterally, and cap refill < 2 seconds. Lungs: Respirations even, regular, and unlabored on room air. Lungs CTA bilaterally, no rhonchi, no rales, no wheezing, and no accessory muscle usage. Abdominal: soft, nontender to palpation, no guarding, no appreciable organomegaly Ext: ROM intact. No gross muscle atrophy, no edema, no contractures Neuro: Face symmetrical and CN II-XII grossly intact with no noted focal neuro deficits Psych: Alert and oriented to person, place, time, and situation. Appropriate and pleasant affect. Assessment and Plan of Care: Chemotherapy-induced nausea and vomiting Failure to thrive Generalized weakness, secondary to above Metabolic alkalosis, secondary to dehydration resulting from chemotherapy induced nausea and vomiting. Resolved with IV fluid hydration. Hypokalemia Hypomagnesemia Pancytopenia, chemotherapy-induced. Worsening Squamous cell tonsilar carcinoma -Oncology consulted, discussed plan of care with oncology PREDICTIVE MAINTENANCE TECHNICIAN. -General surgery following and took patient for PEG tube placement on 06/21/2024. -Dietary following and managing tube feeds -Compazine 10 mg IVP every 6 hours as needed for nausea. -GI prophylaxis with Protonix 40 mg IVP daily. -Magnesium replaced with magnesium sulfate 2 g IVPB -Will continue to monitor closely with repeat a.m. labs to monitor for resolution of hypokalemia as well as improvement of metabolic alkalosis -PT/OT following -Hemoglobin 6.5 this morning. Order placed for transfusion 1 unit PRBCs. Discussed with oncology stating no need for irradiated blood. Will continue to monitor with repeat morning lab and transfuse as indicated for hemoglobin less than 7. Severe protein calorie malnutrition -Patient i underwent PEG tube placement on 10/22/2024. Dietitian was consulted to begin PEG tube feedings later today. Constipation, resolved -KUB complete showing nonobstructive bowel gas pattern with moderate diffuse colonic stool burden suggesting constipation. -Continue MiraLAX 17 g daily and Dulcolax 10 mg p.o. may be given daily as needed for continued constipation. Hypertension -Continue daily medication regimen with amlodipine 10 mg daily. Hyperlipidemia -Continue daily medication regimen with atorvastatin 40 mg nightly. Data and imaging reviewed: Morning labs reviewed. CBC showing pancytopenia with WBC count of 4.19, hemoglobin of 6.5, and platelet count of 54. BMP unremarkable with blood glucose of 120. Magnesium also slightly low at 1.7. Vital signs reviewed. Blood pressure 100/66, heart rate 72, respiratory rate 18, temp 98.3 F, and SpO2 100% on room air. CODE STATUS: Full code DVT prophylaxis: SCDs secondary to pancytopenia Discussed with: Patient, RN, general surgery PA and oncology PREDICTIVE MAINTENANCE TECHNICIAN Anticipated discharge date: Pending clinical course Anticipated discharge place: Pending clinical course, likely home with home care Patient was seen independently by Nurse Practitioner. This document was prepared using [employer] dictation software. Please allow for errors in pantographer while rare they do occur. Nabeel Adan NP rendered care for this patient independently, reviewed the findings and plan as documented in the note above and agree with plan. I did not physically speak with or examine the patient on this date. . Objective - Vital Signs Vital signs: Vital Signs Temp 98.3 F 06/23/24 07:32 Pulse 72 06/23/24 07:32 Resp 18 06/23/24 07:32 BP 100/66 06/23/24 07:32 Pulse Ox 100 06/23/24 07:32 FiO2 Intake & Output 06/22/24 06/23/24 06/23/24 18:59 06:59 18:59 Output Total 1450 450 450 Balance -1450 -450 -450 Weight 60.3 kg Output: Urine 1450 450 450 Other: Voiding Method Urinal - Labs CBC & Chem 7: 06/23/24 05:20 06/23/24 05:20 Labs: Abnormal Lab Results - Last 24 Hours (Table) 06/22/24 06/22/24 06/23/24 Range/Units 17:56 23:32 05:20 WBC (4.50-10.00) X 10*3/uL RBC (4.40-5.60) X 10*6/uL Hgb (13.0-17.0) g/dL Hct (39.6-50.0) % MCV (80.0-97.0) FL MCH (27.0-32.0) pg RDW (11.5-14.5) % Plt Count (140-440) X 10*3/uL Immature Plt Fraction (1.1-6.1) % BUN/Creatinine Ratio 11.18 L (12.00-20.00) Ratio Glucose 120 H (70-110) mg/dL POC Glucose (mg/dL) 149 H 133 H (70-110) mg/dL Calcium 8.2 L (8.7-10.3) mg/dL 06/23/24 06/23/24 Range/Units 05:20 05:43 WBC 4.19 L (4.50-10.00) X 10*3/uL RBC 1.85 L (4.40-5.60) X 10*6/uL Hgb 6.5 A* (13.0-17.0) g/dL Hct 18.8 A* (39.6-50.0) % MCV 101.6 H (80.0-97.0) FL MCH 35.1 H (27.0-32.0) pg RDW 15.5 H (11.5-14.5) % Plt Count 54 L (140-440) X 10*3/uL Immature Plt Fraction 6.9 H (1.1-6.1) % BUN/Creatinine Ratio (12.00-20.00) Ratio Glucose (70-110) mg/dL POC Glucose (mg/dL) 128 H (70-110) mg/dL Calcium (8.7-10.3) mg/dL
[2024-06-23 18:05] LABS: Glucose,Whole Blood 128 mg/dL (70-110)
[2024-06-23 23:47] LABS: Glucose,Whole Blood 131 mg/dL (70-110)
[2024-06-24 05:47] LABS: Glucose,Whole Blood 146 mg/dL (70-110)
[2024-06-24 08:18] LABS: ALT 9 U/L (10-49); AST 12 U/L (14-35); Albumin 3.2 g/dL (3.8-4.9); Albumin/Globulin Ratio 1.78 Ratio (1.60-3.17); Alkaline Phosphatase 81 U/L (41-126); Blood Urea Nitrogen 15.3 mg/dL (9.0-27.0); Calcium 8.2 mg/dL (8.7-10.3); Carbon Dioxide 27.5 mmol/L (21.6-31.8); Chloride 101 mmol/L (96-109); Globulin 1.8 g/dL (1.6-3.3); Glucose 124 mg/dL (70-110); Magnesium 1.7 mg/dL (1.5-2.4); Potassium 3.6 mmol/L (3.5-5.5); Sodium 138 mmol/L (135-145); Total Bilirubin 0.3 mg/dL (0.3-1.2)
[2024-06-24 09:05] LABS: HGB 7.3 g/dL (13.0-17.0); Immature Platelet Fraction 4.5 % (1.1-6.1); MCH 33.6 pg (27.0-32.0); MCHC 34.8 g/dL (32.0-37.0); MCV 96.8 FL (80.0-97.0); Mean Platelet Volume 11.9 FL (9.5-12.2); NRBC Per 100 WBC 0 X 10*3/uL (0.00-0.01); Platelet Count 54 X 10*3/uL (140-440); RBC 2.17 X 10*6/uL (4.40-5.60); WBC 4.55 X 10*3/uL (4.50-10.00)
[2024-06-24] MEDS: FLUCONAZOLE ORAL SUSP 1,400 MG/35 ML BOTTLE PO SCH (09:54)
[2024-06-24] MEDS: PANTOPRAZOLE 40 MG/10 ML VIAL IVP SCH (09:54)
--- NOTE | 2024-06-24 11:53 | P.PN ---
Subjective Progress Note Date: 06/24/24 SURGICAL PROGRESS NOTE CHIEF COMPLAINT: Tonsil cancer HISTORY OF PRESENT ILLNESS: Postop day #3 status post PEG tube placement. Patient is tolerating tube feeds. Tube feeds held for radiation treatment this morning. Patient is scheduled for modified barium swallow with speech therapy today. Patient reports minimal tenderness at PEG tube site. Afebrile. WBC 4.55 Hgb up from 6.5-7.3 after 1 unit of blood PHYSICAL EXAM: VITAL SIGNS: Reviewed. GENERAL: in no acute distress. Deaf. ABDOMEN: Soft. Nondistended. Mild tenderness around PEG tube site. PEG tube site clean dry and intact. NEUROLOGIC: Alert and oriented. Cranial nerves II through XII grossly intact. ASSESSMENT: 1. Oropharynx carcinoma PLAN: -Continue to advance tube feeds as tolerated Physician Lead Quality Control Technician note has been reviewed by physician. Signing provider agrees with the documented findings, assessment, and plan of care. Attestation Patient seen and examined at bedside on 06/24/2024. Status post PEG tube placement. Continue to advance tube feeds as tolerated. Continue speech recommendations on any oral feeding for pleasure. Frances Stoddard DO Objective - Vital Signs Vital signs: Vital Signs Temp 98.3 F 06/24/24 07:33 Pulse 65 06/24/24 07:33 Resp 16 06/24/24 07:33 BP 111/67 06/24/24 07:33 Pulse Ox 95 06/24/24 07:33 FiO2 Intake & Output 06/23/24 06/24/24 06/24/24 18:59 06:59 18:59 Intake Total 310 Output Total 700 900 Balance -390 -900 Weight 60.3 kg 41.5 kg Intake: Blood Product 310 Rc As-1 Unit 310 [id number] Output: Urine 700 900 Other: Voiding Method Urinal Urinal Urinal # Bowel Movements 1 - Labs CBC & Chem 7: 06/25/24 06:15 06/24/24 05:25 Labs: Abnormal Lab Results - Last 24 Hours (Table) 06/23/24 06/23/24 06/23/24 Range/Units 09:39 12:04 18:03 RBC (4.40-5.60) X 10*6/uL Hgb (13.0-17.0) g/dL Hct (39.6-50.0) % MCH (27.0-32.0) pg RDW (11.5-14.5) % Plt Count (140-440) X 10*3/uL Glucose (70-110) mg/dL POC Glucose (mg/dL) 145 H 128 H (70-110) mg/dL Calcium (8.7-10.3) mg/dL AST (14-35) U/L ALT (10-49) U/L Total Protein (6.2-8.2) g/dL Albumin (3.8-4.9) g/dL Crossmatch See Detail 06/23/24 06/24/24 06/24/24 Range/Units 23:36 :04 07: RBC 2.17 L (4.40-5.60) X 10*6/uL Hgb 7.3 L (13.0-17.0) g/dL Hct 21.0 L (39.6-50.0) % MCH 33.6 H (27.0-32.0) pg RDW 18.0 H (11.5-14.5) % Plt Count 54 L (140-440) X 10*3/uL Glucose 124 H (70-110) mg/dL POC Glucose (mg/dL) 131 H (70-110) mg/dL Calcium 8.2 L (8.7-10.3) mg/dL AST 12 L (14-35) U/L ALT 9 L (10-49) U/L Total Protein 5.0 L (6.2-8.2) g/dL Albumin 3.2 L (3.8-4.9) g/dL Crossmatch 06/24/24 Range/Units 05:36 RBC (4.40-5.60) X 10*6/uL Hgb (13.0-17.0) g/dL Hct (39.6-50.0) % MCH (27.0-32.0) pg RDW (11.5-14.5) % Plt Count (140-440) X 10*3/uL Glucose (70-110) mg/dL POC Glucose (mg/dL) 146 H (70-110) mg/dL Calcium (8.7-10.3) mg/dL AST (14-35) U/L ALT (10-49) U/L Total Protein (6.2-8.2) g/dL Albumin (3.8-4.9) g/dL Crossmatch
[2024-06-24 12:04] LABS: Glucose,Whole Blood 158 mg/dL (70-110)
--- NOTE | 2024-06-24 14:24 | FL ---
EXAMINATION TYPE: FL barium swallow w video DATE OF EXAM: 06/24/2024 MODIFIED SWALLOW / DEGLUTITION STUDY CLINICAL HISTORY: Dysphagia. Rule out aspiration. History of tonsillar cancer. TECHNIQUE: Deglutition study is performed utilizing thin liquid barium, barium thick pudding, and b arium coated cracker. 1 minute 5 seconds of fluoro time and 0 images obtained. Total dose area prod uct (DAP) in uGy*m?, mGy*cm? (or similar): n/p COMPARISON: None. FINDINGS: The oral and pharyngeal phases show satisfactory initiation and propagation with all modali ties tested. Normal mastication is seen with solid modalities tested. There is no evidence of penet ration or aspiration with any modality tested. No significant pharyngeal residue was appreciated. IMPRESSION: No aspiration seen. Please refer to speech therapist notes for further details if necess lesvia. [facility], , 06/24/2024 2:21 PM
--- NOTE | 2024-06-24 16:06 | P.PN ---
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 Yu. Patient presented to the emergency department with a chief complaint of weakness and intractable nausea and vomiting. Patient states since last chemotherapy treatment he has progressively gotten weaker, with a decreased appetite, and intractable nausea and vomiting if he attempts to eat or drink anything. Upon arrival to our facility, patient underwent evaluation in the emergency department. Vital signs upon arrival show blood pressure 142/81, heart rate 79, respiratory rate 20, temp 97.4 F, and SpO2 of 99% on room air. EKG completed showing normal sinus rhythm at 61 bpm. Chest X-ray negative for acute cardiopulmonary process. Labs completed and reviewed. Bicytopenia with hemoglobin of 9.5 and platelet count of 87 leukocytosis with WBC count of 12.70, neutrophils of 11.30, lymphocytes of 0.64. and immature granulocytes of 0.10. Coagulation profile showing low PTT of 21.6 otherwise normal findings. BMP showing hypokalemia with potassium of 3.4 and metabolic alkalosis with chloride of 96, bicarb of 31, and anion gap of 9. Blood glucose 111. Lactic acid was 1.3. Calcium 9.5. Magnesium 1.9. TSH 1.470. Influenza A, influenza B, RSV, and COVID PCR were negative. Patient admitted under our services with consultation to oncology, Physical Therapy, and Occupational Therapy at this time. Underwent PEG tube placement on 06/21. Hg dropped from 9.5 to 6.5 on 06/23 requiring 1 PRBC. 06/24 Patient was seen and examined. Reports some pain at the site of PEG when coughing. No nausea or vomiting. Video swallow done today shows no aspiration, started on diet. Discussed with case management, patient agreeable for SNF pending insurance authorization. CBC and CMP significant for RBC 2.17, Hg 7.3, Hct 21, Plt 54, glu 124, Ca 8.2, AST 12, ALT 9, alb 3.2. General: no distress, appears at stated age Derm: warm, dry Head: atraumatic, normocephalic, symmetric Mouth: no lip lesion, mucus membranes moist Cardiovascular: S1 S2 reg. No murmur. Lungs: Decreased BS bilaterally, no accessory muscle use Ext: no gross muscle atrophy, no edema, no contractures Neuro: No focal neurologic deficits. Psych: Alert and oriented. + PEG Based on my assessment of this patient, this patient meets a high complexity level of care. FTT secondary to Squamous cell tonsilar CA: Status post PEG 06/21. Tolerating tube feeds. Passed video swallow today, started on regular diet. Pain control with Morphine 2 mg IV Q6H PRN, Flexeril 5 mg PO BID PRN, [place] 5 PO QID PRN. Evoxac 30 mg PO TID + Pilocarpine 5 mg PO QD for secretions. Surgery on board. Pancytopenia: Status post 1 PRBC 06/23 for Hg of 6.5. Related to malignancy and chemotherapy. Transfuse if Hg < 7 or Plt < 10. Oncology on board. Intractable N/V secondary to chemotherapy: Zofran 4 mg IV Q6H PRN N/V. Protonix 40 mg IV QD. Compazine 10 mg IV Q6H PRN N/V. Oral candidiasis: Fluconazole 100 mg PO QD. Constipation: Miralax 17g PO QHS. Dulcolax 10 mg PO QD PRN. HLD: Lipitor 40 mg PO QHS. HTN: Amlodipine 10 mg PO QD. Anticipate DC in 1-2 days if Hg remains stable and insurance auth for SNF. CODE STATUS: FULL CODE DVT Prophylaxis: SCD GI Prophylaxis: Protonix IV Designated medical POA if patient is not able to make medical decisions for themselves: I have reviewed the following decorating consultant notes: Surgery. I have reviewed the results of the following tests: CBC, CMP, Video swallow. I have ordered the following tests: CBC in the AM. I have discussed the care of this patient with the following independent historian: Case management. I have independently interpreted the following test below: I have discussed the management of this patient with the following physician: Objective - Vital Signs Vital signs: Vital Signs Temp 97.5 F L 06/24/24 13:09 Pulse 71 06/24/24 13:09 Resp 17 06/24/24 13:09 BP 114/73 06/24/24 13:09 Pulse Ox 98 06/24/24 13:09 FiO2 Intake & Output 06/23/24 06/24/24 06/24/24 18:59 06:59 18:59 Intake Total 310 Output Total 700 900 Balance -390 -900 Weight 60.3 kg 41.5 kg Intake: Blood Product 310 Rc As-1 Unit 310 [id number] Output: Urine 700 900 Other: Voiding Method Urinal Urinal Urinal # Voids 1 # Bowel Movements 1 1 - Labs CBC & Chem 7: 06/24/24 05:06/24/24 05:25 Labs: Abnormal Lab Results - Last 24 Hours (Table) 06/23/24 06/23/24 06/24/24 Range/Units 18:03 23:36 05: RBC 2.17 L (4.40-5.60) X 10*6/uL Hgb 7.3 L (13.0-17.0) g/dL Hct 21.0 L (39.6-50.0) % MCH 33.6 H (27.0-32.0) pg RDW 18.0 H (11.5-14.5) % Plt Count 54 L (140-440) X 10*3/uL Glucose (70-110) mg/dL POC Glucose (mg/dL) 128 H 131 H (70-110) mg/dL Calcium (8.7-10.3) mg/dL AST (14-35) U/L ALT (10-49) U/L Total Protein (6.2-8.2) g/dL Albumin (3.8-4.9) g/dL 06/24/24 06/24/24 06/24/24 Range/Units 05:25 05:36 12:01 RBC (4.40-5.60) X 10*6/uL Hgb (13.0-17.0) g/dL Hct (39.6-50.0) % MCH (27.0-32.0) pg RDW (11.5-14.5) % Plt Count (140-440) X 10*3/uL Glucose 124 H (70-110) mg/dL POC Glucose (mg/dL) 146 H 158 H (70-110) mg/dL Calcium 8.2 L (8.7-10.3) mg/dL AST 12 L (14-35) U/L ALT 9 L (10-49) U/L Total Protein 5.0 L (6.2-8.2) g/dL Albumin 3.2 L (3.8-4.9) g/dL
[2024-06-24 17:57] LABS: Glucose,Whole Blood 130 mg/dL (70-110)
[2024-06-25 00:14] LABS: Glucose,Whole Blood 157 mg/dL (70-110)
[2024-06-25 05:46] LABS: Glucose,Whole Blood 114 mg/dL (70-110)
[2024-06-25 06:35] LABS: HCT 21.1 % (39.6-50.0); HGB 7.6 g/dL (13.0-17.0); MCV 97.2 fL (80.0-97.0); Mean Platelet Volume 10.8 fL (9.5-12.2); RBC 2.17 10*6/uL (4.40-5.60); RDW 17.1 % (11.5-14.5); WBC 3.58 10*3/uL (4.50-10.00)
[2024-06-25 06:49] LABS: Platelet Count 66 10*3/uL (140-440)
--- NOTE | 2024-06-25 10:07 | P.DS ---
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 Yu. Patient presented to the emergency department with a chief complaint of weakness and intractable nausea and vomiting. Patient states since last chemotherapy treatment he has progressively gotten weaker, with a decreased appetite, and intractable nausea and vomiting if he attempts to eat or drink anything. Upon arrival to our facility, patient underwent evaluation in the emergency department. Vital signs upon arrival show blood pressure 142/81, heart rate 79, respiratory rate 20, temp 97.4 F, and SpO2 of 99% on room air. EKG completed showing normal sinus rhythm at 61 bpm. Chest X-ray negative for acute cardiopulmonary process. Labs completed and reviewed. Bicytopenia with hemoglobin of 9.5 and platelet count of 87 leukocytosis with WBC count of 12.70, neutrophils of 11.30, lymphocytes of 0.64. and immature granulocytes of 0.10. Coagulation profile showing low PTT of 21.6 otherwise normal findings. BMP showing hypokalemia with potassium of 3.4 and metabolic alkalosis with chloride of 96, bicarb of 31, and anion gap of 9. Blood glucose 111. Lactic acid was 1.3. Calcium 9.5. Magnesium 1.9. TSH 1.470. Influenza A, influenza B, RSV, and COVID PCR were negative. Patient admitted under our services with consultation to oncology, Physical Therapy, and Occupational Therapy at this time. Underwent PEG tube placement on 06/21. Hg dropped from 9.5 to 6.5 on 06/23 requiring 1 PRBC. 06/24 Patient was seen and examined. Reports some pain at the site of PEG when coughing. No nausea or vomiting. Video swallow done today shows no aspiration, started on diet. Discussed with case management, patient agreeable for SNF pending insurance authorization. CBC and CMP significant for RBC 2.17, Hg 7.3, Hct 21, Plt 54, glu 124, Ca 8.2, AST 12, ALT 9, alb 3.2. 06/25 Patient was seen and examined. Doing well. Tolerating diet and PEG feeds. Plans for radiation treatment today. Discussed with case management, will likely get insurance auth today. CBC shows WBC 3.58, RBC 2.17, Hg 7.6, Hct 21.1, MCV 97.2, Plt 66. Discharge Plan: Hold Oncology treatment until finished with SNF stay. Resume home medications. Follow up with PCP within 1-2 days of discharge, Dr. Yu on 06/28. Continue Fluconazole 100 mg PO QD x 12 days to complete a total of 14 days. General: no distress, appears at stated age Derm: warm, dry Head: atraumatic, normocephalic, symmetric Mouth: no lip lesion, mucus membranes moist Cardiovascular: S1 S2 reg. No murmur. Lungs: Decreased BS bilaterally, no accessory muscle use Ext: no gross muscle atrophy, no edema, no contractures Neuro: No focal neurologic deficits. Psych: Alert and oriented. + PEG Discharge Diagnosis: FTT secondary to Squamous cell tonsilar CA Pancytopenia Intractable N/V secondary to chemotherapy Oral candidiasis Constipation HLD HTN This complex discharge took 35 minutes to complete. Patient Condition at Discharge: Stable Plan - Discharge Summary New Discharge Prescriptions: New Fluconazole Oral Susp [Diflucan Oral Susp] 100 mg PO DAILY ml bisacodyL [Dulcolax] 10 mg PO DAILY PRN tab PRN Reason: Constipation Mag Hydrox/Al Hydrox/Simeth [Maalox] 30 ml PO QID PRN ml PRN Reason: Heartburn polyethylene glycoL 3350 [Miralax] 17 gm PO HS packet Acetaminophen Tab [Tylenol] 650 mg PO Q6HR PRN tab PRN Reason: Mild Pain Or Fever > 100.5 Lidocaine Viscous 2% [Xylocaine Viscous] 30 ml PO QID PRN ml PRN Reason: Sore Throat Continue Pilocarpine [[place]] 5 mg PO DAILY amLODIPine [Norvasc] 10 mg PO DAILY HYDROcodone/APAP 5-325MG [[place] 5-325] 1 tab PO QID PRN #12 tab PRN Reason: Pain Cyclobenzaprine [Flexeril] 5 mg PO BID PRN PRN Reason: Muscle Spasm Atorvastatin [Lipitor] 40 mg PO HS OLANZapine [ZyPREXA] 2.5 mg PO HS Cevimeline [Evoxac] 30 mg PO TID Changed Ondansetron [Zofran] 4 mg PO Q4H PRN #0 MDD 8 TABS PRN Reason: Nausea Discontinued Fluconazole [Diflucan] 100 mg PO DAILY Discharge Medication List Atorvastatin [Lipitor] 40 mg PO HS 06/18/24 [History] Cevimeline [Evoxac] 30 mg PO TID 06/18/24 [History] Cyclobenzaprine [Flexeril] 5 mg PO BID PRN 06/18/24 [History] OLANZapine [ZyPREXA] 2.5 mg PO HS 06/18/24 [History] Pilocarpine [[place]] 5 mg PO DAILY 06/18/24 [History] amLODIPine [Norvasc] 10 mg PO DAILY 06/18/24 [History] Acetaminophen Tab [Tylenol] 650 mg PO Q6HR PRN tab 06/25/24 [Rx] Fluconazole Oral Susp [Diflucan Oral Susp] 100 mg PO DAILY ml 06/25/24 [Rx] HYDROcodone/APAP 5-325MG [[place] 5-325] 1 tab PO QID PRN #12 tab 06/25/24 [Rx] Lidocaine Viscous 2% [Xylocaine Viscous] 30 ml PO QID PRN ml 06/25/24 [Rx] Mag Hydrox/Al Hydrox/Simeth [Maalox] 30 ml PO QID PRN ml 06/25/24 [Rx] Ondansetron [Zofran] 4 mg PO Q4H PRN #0 MDD 8 TABS 06/25/24 [Rx] bisacodyL [Dulcolax] 10 mg PO DAILY PRN tab 06/25/24 [Rx] polyethylene glycoL 3350 [Miralax] 17 gm PO HS packet 06/25/24 [Rx] Follow up Appointment(s)/Referral(s): [facility], [NON-STAFF] - 1 Week Kelly Yu MD [STAFF PHYSICIAN] - 06/28/24 9:00 am (THIS IS CHEMO APPT) Acosta Bautista MD [Primary Care Provider] - 1-2 days Discharge Disposition: TRANSFER TO SNF/ECF
[2024-06-25 12:11] LABS: Glucose,Whole Blood 177 mg/dL (70-110)
--- NOTE | 2024-06-25 12:48 | P.PN ---
Subjective Progress Note Date: 06/25/24 SURGICAL PROGRESS NOTE CHIEF COMPLAINT: Tonsil cancer HISTORY OF PRESENT ILLNESS: Postop day #4 status post PEG tube placement. Patient is tolerating tube feeds at 55ml/hr. patient did pass his modified barium swallow eval yesterday. He is tolerating soft foods. He is undergoing radiation treatment. He had radiation treatment this morning. Patient scheduled for discharge today PHYSICAL EXAM: VITAL SIGNS: Reviewed. GENERAL: in no acute distress. Deaf. ABDOMEN: Soft. Nondistended. Mild tenderness around PEG tube site. PEG tube site clean dry and intact. NEUROLOGIC: Alert and oriented. Cranial nerves II through XII grossly intact. ASSESSMENT: 1. Oropharynx carcinoma PLAN: -Continue tube feeds - Okay for soft diet as tolerated - Patient can be discharged from surgical standpoint. Physician [employer] note has been reviewed by physician. Signing provider agrees with the documented findings, assessment, and plan of care. Objective - Vital Signs Vital signs: Vital Signs Temp 97.5 F L 06/25/24 07:55 Pulse 51 L 06/25/24 07:55 Resp 16 06/25/24 07:55 BP 91/52 06/25/24 07:55 Pulse Ox 93 L 06/25/24 07:55 FiO2 Intake & Output 06/24/24 06/25/24 06/25/24 18:59 06:59 18:59 Output Total 300 Balance -300 Weight 40 kg Output: Urine 300 Other: Voiding Method Urinal Urinal Urinal # Voids 1 # Bowel Movements 1 - Labs CBC & Chem 7: 06/25/24 06:15 06/24/24 05:25 Labs: Abnormal Lab Results - Last 24 Hours (Table) 06/24/24 06/25/24 06/25/24 Range/Units 17:54 00:12 05:44 WBC (4.50-10.00) 10*3/uL RBC (4.40-5.60) 10*6/uL Hgb (13.0-17.0) g/dL Hct (39.6-50.0) % MCV (80.0-97.0) fL MCH (27.0-32.0) pg RDW (11.5-14.5) % Plt Count (140-440) 10*3/uL POC Glucose (mg/dL) 130 H 157 H 114 H (70-110) mg/dL 06/25/24 06/25/24 Range/Units 06:15 11:52 WBC 3.58 L (4.50-10.00) 10*3/uL RBC 2.17 L (4.40-5.60) 10*6/uL Hgb 7.6 L (13.0-17.0) g/dL Hct 21.1 L (39.6-50.0) % MCV 97.2 H (80.0-97.0) fL MCH 35.0 H (27.0-32.0) pg RDW 17.1 H (11.5-14.5) % Plt Count 66 L (140-440) 10*3/uL POC Glucose (mg/dL) 177 H (70-110) mg/dL
--- NOTE | 2024-06-25 13:32 | P.PN ---
Progress Note - Text Progress Note Date: 06/25/24 Head and neck squamous cell carcinoma - Diagnosis and treatment as reported and consult - There has been a significant reduction in the size, as well as the feel, of the tumor on the left neck - Treatment will be held until discharged from rehab facility
[2024-06-25 14:47] VITALS: BMI 13.0
[2024-06-25 17:33] LABS: Glucose,Whole Blood 146 mg/dL (70-110)
[2024-06-25 19:51] VITALS: RESP 15
[2024-06-26 00:13] LABS: Glucose,Whole Blood 118 mg/dL (70-110)
[2024-06-26 05:46] LABS: Glucose,Whole Blood 125 mg/dL (70-110)
[2024-06-26 07:48] VITALS: BP 96/50; PULSE 66; TEMP 98.2
--- NOTE | 2024-06-26 08:39 | P.PN ---
Progress Note - Text Progress Note Date: 06/26/24 CHIEF COMPLAINT: Tonsil cancer HISTORY OF PRESENT ILLNESS: Postop day #5 status post PEG tube placement. No acute events overnight. PHYSICAL EXAM: VITAL SIGNS: Reviewed. GENERAL: in no acute distress. Deaf. ABDOMEN: Soft. Nondistended. Mild tenderness around PEG tube site. PEG tube site clean dry and intact. NEUROLOGIC: Alert and oriented. Cranial nerves II through XII grossly intact. ASSESSMENT: 1. Oropharynx carcinoma PLAN: -Continue tube feeds -Okay for soft diet as tolerated -Patient can be discharged from surgical standpoint. Jj Beach DO [facility] [phone]
--- NOTE | 2024-06-26 11:59 | P.PN ---
Subjective Progress Note Date: 06/26/24 Discharge summary was completed on 06/26/[address] 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 Yu. Patient presented to the emergency department with a chief complaint of weakness and intractable nausea and vomiting. Patient states since last chemotherapy treatment he has progressively gotten weaker, with a decreased appetite, and intractable nausea and vomiting if he attempts to eat or drink anything. Upon arrival to our facility, patient underwent evaluation in the emergency department. Vital signs upon arrival show blood pressure 142/81, heart rate 79, respiratory rate 20, temp 97.4 F, and SpO2 of 99% on room air. EKG completed showing normal sinus rhythm at 61 bpm. Chest X-ray negative for acute cardiopulmonary process. Labs completed and reviewed. Bicytopenia with hemoglobin of 9.5 and platelet count of 87 leukocytosis with WBC count of 12.70, neutrophils of 11.30, lymphocytes of 0.64. and immature granulocytes of 0.10. Coagulation profile showing low PTT of 21.6 otherwise normal findings. BMP showing hypokalemia with potassium of 3.4 and metabolic alkalosis with chloride of 96, bicarb of 31, and anion gap of 9. Blood glucose 111. Lactic acid was 1.3. Calcium 9.5. Magnesium 1.9. TSH 1.470. Influenza A, influenza B, RSV, and COVID PCR were negative. Patient admitted under our services with consultation to oncology, Physical Therapy, and Occupational Therapy at this time. Underwent PEG tube placement on 06/21. Hg dropped from 9.5 to 6.5 on 06/23 requiring 1 PRBC. 06/24 Patient was seen and examined. Reports some pain at the site of PEG when coughing. No nausea or vomiting. Video swallow done today shows no aspiration, started on diet. Discussed with case management, patient agreeable for SNF pending insurance authorization. CBC and CMP significant for RBC 2.17, Hg 7.3, Hct 21, Plt 54, glu 124, Ca 8.2, AST 12, ALT 9, alb 3.2. 06/25 Patient was seen and examined. Doing well. Tolerating diet and PEG feeds. Plans for radiation treatment today. Discussed with case management, will likely get insurance auth today. CBC shows WBC 3.58, RBC 2.17, Hg 7.6, Hct 21.1, MCV 97.2, Plt 66. 5 patient was seen and examined at bedside, getting ready for discharge, no complaints at this time Discharge Plan: Hold Oncology treatment until finished with SNF stay. Resume home medications. Follow up with PCP within 1-2 days of discharge, Dr. Yu on 06/28. Continue Fluconazole 100 mg PO QD x 12 days to complete a total of 14 days. Pertinent positives and negatives as discussed above, a complete review of systems was performed and all other systems are negative. Vitals Signs Reviewed. General: no distress, appears at stated age Derm: warm, dry Head: atraumatic, normocephalic, symmetric Mouth: no lip lesion, mucus membranes moist Cardiovascular: S1 S2 reg. No murmur. Lungs: Decreased BS bilaterally, no accessory muscle use Ext: no gross muscle atrophy, no edema, no contractures Neuro: No focal neurologic deficits. Psych: Alert and oriented. + PEG Assessment and Plan: FTT secondary to squamous cell tonsillar cancer Status post PEG placement 06/21/2024 -Tolerating tube feeds - Passed video swallow, started on regular diet -Pain control with Morphine 2 mg IV Q6H PRN, Flexeril 5 mg PO BID PRN, [place] 5 PO QID PRN. Evoxac 30 mg PO TID + [place]ocarp[place] 5 mg PO QD for secretions. Surgery on board. Pancytopenia secondary to chemotherapy, malignancy related - Status post 1 PRBC 06/23 -Hematology oncology following Intractable nausea and vomiting secondary to chemotherapy, resolved -Zofran 4 mg IV Q6H PRN N/V. Protonix 40 mg IV QD. Compazine 10 mg IV Q6H PRN N /V. Oral candidiasis: Fluconazole 100 mg PO QD. Constipation: Miralax 17g PO QHS. Dulcolax 10 mg PO QD PRN. HLD: Lipitor 40 mg PO QHS. HTN: Amlodipine 10 mg PO QD. DVT ppx: Lovenox Code status: Full code Anticipated discharge place: SNF Anticipated discharge time: 06/26 Objective - Vital Signs Vital signs: Vital Signs Temp 98.2 F 06/26/24 07:14 Pulse 66 06/26/24 07:14 Resp 15 06/26/24 07:14 BP 96/50 06/26/24 07:14 Pulse Ox 96 06/26/24 07:14 FiO2 Intake & Output 06/25/24 06/26/24 06/26/24 18:59 06:59 18:59 Intake Total 1080 Output Total 1999 750 Balance -920 -750 Weight 40 kg 60.3 kg Intake: Oral 1080 Output: Urine 1999 750 Other: Voiding Method Urinal Urinal Urinal # Voids 0 # Bowel Movements 0 - Labs CBC & Chem 7: 06/25/24 06:15 06/24/24 05:25 Labs: Abnormal Lab Results - Last 24 Hours (Table) 06/25/24 06/25/24 06/26/24 Range/Units 11:52 17:23 00:10 POC Glucose (mg/dL) 177 H 146 H 118 H (70-110) mg/dL 06/26/24 Range/Units 05:44 POC Glucose (mg/dL) 125 H (70-110) mg/dL
== END 2024-06-26 12:48 | DRG 640 ==
LOC: EC 07:53 → OBSVTOIN 10:33 → 5NMEDONC 10:33
PROVIDERS: ADMIT Student in an Organized Health Care Education/Training Program; ATTEND Student in an Organized Health Care Education/Training Program
PROC: 0DH63UZ Insertion of Feeding Device into Stomach, Percutaneous Approach (ICD-10-PCS; principal; 2024-06-21 08:10)
PROC: [UNRECOGNIZED PROCEDURE] (2024-06-24)
DX: E86.0 Dehydration (principal); D61.810 Antineoplastic chemotherapy induced pancytopenia; E43 Unspecified severe protein-calorie malnutrition; B37.0 Candidal stomatitis; E87.3 Alkalosis; C09.9 Malignant neoplasm of tonsil, unspecified; R13.10 Dysphagia, unspecified; R62.7 Adult failure to thrive; I10 Essential (primary) hypertension; Z68.1 Body mass index [BMI] 19.9 or less, adult; T45.1X5A Adverse effect of antineoplastic and immunosuppressive drugs, initial encounter; E78.5 Hyperlipidemia, unspecified; H91.93 Unspecified hearing loss, bilateral; K59.00 Constipation, unspecified; E87.6 Hypokalemia; Z79.899 Other long term (current) drug therapy; Z86.73 Personal history of transient ischemic attack (TIA), and cerebral infarction without residual deficits; Z87.891 Personal history of nicotine dependence
CPT/HCPCS: 36415; 43246; 71046; 74018; 74230; 77336; 77386; 80048; 80053; 83605; 83735; 84443; 85025; 85027; 85610; 85730; 86850; 86900; 86901; 86920; 87636; 93005; 96361; 96365; 96366; 96375; 99285